=== PATIENT | male | born 1935 | race Caucasian/White ===

== ENCOUNTER 2016-09-17 09:18 | Outpatient (CLI) | payer OTHER ==
[2016-09-17 14:52] LABS: ALBUMIN/GLOBULIN RATIO 1.7 (1.0-2.2); BILIRUBIN,TOTAL 0.5 mg/dL (0.2-1.0); BUN - BLOOD UREA NITROGEN 36 mg/dL (6-20); CALCIUM 9.8 mg/dL (8.5-10.3); CARBON DIOXIDE - CO2 26 mmol/L (21-32); CHLORIDE 104 mmol/L (101-111); CHOL/HDL RATIO 3.8 (<5.0); CHOLESTEROL 152 mg/dL; CREATININE 1.7 mg/dL (0.6-1.2); GFR - MDRD 39 (>89); GLUCOSE 179 mg/dL (70-100); HDL CHOLESTEROL 40 mg/dL; LDL/HDL RATIO 2.4 (<3.6); SODIUM 140 mmol/L (135-145); TOTAL PROTEIN 6.9 g/dL (6.7-8.2); TRIGLYCERIDES 92 mg/dL; VLDL CHOLESTEROL 18 mg/dL
== END 2016-09-17 09:19 | disposition home or self-care (01) ==
LOC: LAB.WCP 09:18
PROVIDERS: ATTEND Physician Assistant Medical
DX: E11.29 Type 2 diabetes mellitus with other diabetic kidney complication (principal)
CPT/HCPCS: 36415; 80053; 80061; 83036

== ENCOUNTER 2017-01-01 11:18 | Outpatient (CLI) | payer MEDICARE, OTHER ==
[2017-01-01 19:45] LABS: CALCIUM 9.6 mg/dL (8.5-10.3); CREATININE 1.6 mg/dL (0.6-1.2); POTASSIUM 3.8 mmol/L (3.5-5.0)
[2017-01-01 20:27] LABS: HEMOGLOBIN A1C 1.03 g/dL
== END 2017-01-01 11:19 | disposition home or self-care (01) ==
LOC: LAB.WCP 11:18
PROVIDERS: ATTEND Physician Assistant Medical
DX: E11.29 Type 2 diabetes mellitus with other diabetic kidney complication (principal); Z12.5 Encounter for screening for malignant neoplasm of prostate
CPT/HCPCS: 36415; 80048; 83036; G0103; 84153

== ENCOUNTER 2017-03-11 16:49 | Emergency (ER) | payer MEDICARE, OTHER ==
--- NOTE | 2017-03-11 18:24 | ED Physician Documentation ---
History of Present Illness - Stated complaint Stated Complaint: GLF/NECK & BACK PX - Chief complaint Chief Complaint: Heent - History obtained from History obtained from: Patient, Family - History of Present Illness Timing: How many hours ago (2) Pain level max: 4 Pain level now: 3 Improved by: rest Worsened by: movement - Additonal information Additional information: Patient is an 81-year-old male who presents to the emergency department after a trip and fall down the stairs. Landed on the occiput in his neck. No complaint of neck and head pain. No focal weakness or numbness. Ambulated into the emergency department. He is not currently on blood thinners. No vomiting. No loss of consciousness. Review of Systems Ten Systems: 10 systems reviewed and negative Constitutional: denies: Fever, Chills Ears: denies: Ear pain Nose: denies: Rhinorrhea / runny nose, Congestion Throat: denies: Sore throat Cardiac: denies: Chest pain / pressure Respiratory: denies: Cough GI: denies: Nausea, Vomiting, Diarrhea Skin: denies: Rash Musculoskeletal: reports: Neck pain. denies: Back pain Neurologic: reports: Headache, Head injury. denies: Focal weakness, Numbness, Confused, Altered mental status, LOC PD PAST MEDICAL HISTORY - Past Medical History Past Medical History: Yes Cardiovascular: Hypertension Respiratory: None Neuro: Parkinson's Endocrine/Autoimmune: Type 2 diabetes Musculoskeletal: Other - Present Medications Home Medications: Ambulatory Orders Medication Instructions Recorded Confirmed Aspirin 81 mg PO DAILY 03/11/17 03/11/17 Carbidopa/Levodopa [Carbidopa-Levo 03/11/17 ER 25-100 Tab] Esomeprazole Magnesium 20 mg PO DAILY 03/11/17 03/11/17 Fenofibrate 160 mg PO DAILY 03/11/17 03/11/17 Insulin Aspart [NovoLOG] 03/11/17 Insulin Glargine [Lantus Solostar] 03/11/17 Lisinopril 20 mg PO DAILY 03/11/17 03/11/17 Metformin HCl 500 mg PO DAILY PM 03/11/17 03/11/17 Simvastatin 40 mg PO DAILY 03/11/17 03/11/17 - Allergies Allergies/Adverse Reactions: Allergies Allergy/AdvReac Type Severity Reaction Status Date / Time No Known Drug Allergies Allergy Verified 03/11/17 17:11 - Social History Does the pt smoke?: No Smoking Status: Never smoker PD ED PE NORMAL - Vitals Vital signs reviewed: Yes - General General: Alert and oriented X 3, No acute distress, Well developed/nourished - HEENT HEENT: Atraumatic, PERRL, Ears normal, Moist mucous membranes - Neck Neck: Supple, no meningeal sign, Other (TTP diffusely over the mid/upper C-spine ) - Cardiac Cardiac: RRR, Strong equal pulses - Respiratory Respiratory: No respiratory distress, Clear bilaterally - Abdomen Abdomen: Soft, Non tender, Non distended - Derm Derm: Warm and dry - Extremities Extremities: No deformity - Neuro Neuro: Alert and oriented X 3, shovel engineer 2-12 intact, No motor deficit, No sensory deficit, Normal speech Eye Opening: Spontaneous Motor: Obeys Commands Verbal: Oriented GCS Score: 15 - Psych Psych: Normal mood, Normal affect Results - Vitals Vitals: Vital Signs - 24 hr 03/11/17 03/11/17 03/11/17 17:08 19:36 19:38 Temperature 36.6 C 36.9 C Heart Rate 65 62 Respiratory 17 18 Rate Blood Pressure 144/65 H 141/65 H O2 Saturation 99 97 Oxygen O2 Source Room air - Rads (name of study) head CT Radiology: Prelim report reviewed, EMP read contemporaneously, See rad report ( No acute intracranial CT abnormality. ) cervical spine CT Radiology: Prelim report reviewed, EMP read contemporaneously, See rad report ( No evidence of cervical spine fracture or dislocation) PD MEDICAL DECISION MAKING - ED course Complexity details: reviewed results, re-evaluated patient, considered differential, d/w patient, d/w family ED course: Patient is an 81-year-old gentleman with a history of Parkinson's disease who tripped and fell today landing on his neck and occiput. Has pain to both sites. Head CT and C-spine CT neg. Patient and family counseled regarding signs and symptoms for which I believe and urgent re-evaluation would be necessary. Patient with good understanding of and agreement to plan and is comfortable going home at this time This document was made in part using voice recognition software. While efforts are made to proofread this document, sound alike and grammatical errors may occur. Departure - Departure Disposition: 01 Home, Self Care Clinical Impression: Neck pain Fall Qualifiers: Encounter type: initial encounter Qualified Code(s): W19.XXXA - Unspecified fall, initial encounter Head injury Qualifiers: Encounter type: initial encounter Qualified Code(s): S09.90XA - Unspecified injury of head, initial encounter Condition: Good Instructions: ED Head Injury Closed, ED Neck Back Pain General Follow-Up: Jennifer Bernal PA-C [Primary Care Provider] - Within 1 week Comments: Your CT scans are normal today. Return if you worsen. You can use Motrin or Tylenol as needed for pain at home. Discharge Date/Time: 03/11/17 19:39
--- NOTE | 2017-03-11 18:58 | CT Preliminary Report ---
Exam: CT HEAD W/O IMPRESSION: No acute intracranial CT abnormality. [facility] SITE ID: [id number]
--- NOTE | 2017-03-11 19:00 | CT Preliminary Report ---
Exam: CT CERVICAL SPINE W/O IMPRESSION: No evidence of cervical spine fracture or dislocation. [facility] SITE ID: [id number]
--- NOTE | 2017-03-11 19:01 | CT Report ---
EXAM: CT HEAD EXAM DATE: 03/11/2017 06:43 PM. CLINICAL HISTORY: Fall. COMPARISON: None. TECHNIQUE: Multiaxial CT images were obtained from the foramen magnum to the vertex. Reformats: Coron al. IV contrast: None. In accordance with CT protocol optimization, one or more of the following dose reduction techniques w ere utilized for this exam: automated exposure control, adjustment of mA and/or KV based on patient s ize, or use of iterative reconstructive technique. FINDINGS: Parenchyma: No intraparenchymal hemorrhage. No evidence of mass, midline shift, or CT findings of inf arction. Sandhu-white differentiation is distinct. Extraaxial Spaces: Normal for age. No subdural or epidural collections identified. Ventricles: Normal in size and position. Sinuses and Orbits: Imaged paranasal sinuses, orbits, and mastoids show no significant abnormality. Bones: No evidence of fracture or calvarial defect. Other: None. IMPRESSION: No acute intracranial CT abnormality. [facility] Referring Provider Line: [phone] SITE ID: [id number]
--- NOTE | 2017-03-11 19:03 | CT Report ---
EXAM: CT CERVICAL SPINE WITHOUT CONTRAST DATE: 03/11/2017 06:43 PM. HISTORY: Fall, head injury, neck pain. COMPARISONS: None. TECHNIQUE: Thin-section axial images were acquired of the cervical spine without contrast. Post-proce ssing: Coronal and sagittal reformats. Other: None. In accordance with CT protocol optimization, one or more of the following dose reduction techniques w ere utilized for this exam: automated exposure control, adjustment of mA and/or KV based on patient s ize, or use of iterative reconstructive technique. FINDINGS: Alignment: No scoliosis or spondylolisthesis. Bones: No fracture or bone lesion. Interspace Levels/Facets: There is mild to moderate mid and lower cervical spine degenerative disease . Musculature: No significant abnormalities. Other: The paravertebral and prevertebral soft tissues are unremarkable. The lung apices are clear. IMPRESSION: No evidence of cervical spine fracture or dislocation. [facility] Referring Provider Line: [phone] SITE ID: [id number]
[2017-03-11 19:37] VITALS: BP 141/65
== END 2017-03-11 19:39 | disposition home or self-care (01) ==
LOC: ED 16:49
DX: S09.90XA Unspecified injury of head, initial encounter (principal); M54.2 Cervicalgia; W10.9XXA Fall (on) (from) unspecified stairs and steps, initial encounter; I10 Essential (primary) hypertension; E11.9 Type 2 diabetes mellitus without complications; Z79.4 Long term (current) use of insulin; G20 Parkinson's disease; Z79.82 Long term (current) use of aspirin
CPT/HCPCS: 70450; 72125; 99283; 99284

== ENCOUNTER 2017-04-11 15:05 | Outpatient (CLI) | payer MEDICARE, OTHER | END 2017-04-11 15:06 | disposition home or self-care (01) | LOC: LAB.R 15:05 | PROVIDERS: ATTEND Physician Assistant Medical | DX: N39.0 Urinary tract infection, site not specified (principal) | CPT/HCPCS: 87077; 87086 ==

== ENCOUNTER 2017-07-12 08:00 | Outpatient (CLI) | payer MEDICARE, OTHER ==
[2017-07-12 19:08] LABS: CALCIUM 9.7 mg/dL (8.5-10.3); CREATININE 1.4 mg/dL (0.6-1.2)
[2017-07-12 19:55] LABS: HB2 TOTAL 13.9 g/dL; HEMOGLOBIN A1C 0.98 g/dL; HEMOGLOBIN A1C % 8.6 % (4.6-6.2)
== END 2017-07-12 08:01 | disposition home or self-care (01) ==
LOC: LAB.WCP 08:00
PROVIDERS: ATTEND Physician Assistant Medical
DX: E11.29 Type 2 diabetes mellitus with other diabetic kidney complication (principal)
CPT/HCPCS: 36415; 80048; 83036

== ENCOUNTER 2017-10-21 11:36 | Outpatient (CLI) | payer MEDICARE, OTHER ==
[2017-10-21 19:03] LABS: HB2 TOTAL 13.5 g/dL; HEMOGLOBIN A1C 0.97 g/dL; HEMOGLOBIN A1C % 8.7 % (4.6-6.2)
[2017-10-21 19:07] LABS: ALBUMIN 4.1 g/dL (3.2-5.5); ALBUMIN/GLOBULIN RATIO 1.4 (1.0-2.2); ALKALINE PHOSPHATASE 28 IU/L (42-121); ALT ALANINE AMINOTRANSFERASE < 10 IU/L (10-60); AST ASPARTATE AMINOTRANSFERASE 14 IU/L (10-42); BUN - BLOOD UREA NITROGEN 32 mg/dL (6-20); CALCIUM 9.6 mg/dL (8.5-10.3); CARBON DIOXIDE - CO2 26 mmol/L (21-32); CHLORIDE 103 mmol/L (101-111); CHOL/HDL RATIO 3.3 (<5.0); CHOLESTEROL 136 mg/dL; CREATININE 1.7 mg/dL (0.6-1.2); GFR - MDRD 39 (>89); GLUCOSE 138 mg/dL (70-100); HDL CHOLESTEROL 41 mg/dL; SODIUM 139 mmol/L (135-145); TOTAL PROTEIN 7.1 g/dL (6.7-8.2)
[2017-10-21 19:19] LABS: LDL CHOLESTEROL,CALCULATED 78 mg/dL; LDL/HDL RATIO 1.9 (<3.6); VLDL CHOLESTEROL 17 mg/dL
== END 2017-10-21 11:37 | disposition home or self-care (01) ==
LOC: LAB.WCP 11:36
PROVIDERS: ATTEND Physician Assistant Medical
DX: E11.29 Type 2 diabetes mellitus with other diabetic kidney complication (principal)
CPT/HCPCS: 36415; 80053; 80061; 83036; 83721

== ENCOUNTER 2018-01-23 13:56 | Outpatient (CLI) | payer MEDICARE, OTHER ==
[2018-01-23 20:05] LABS: HB2 TOTAL 11.8 g/dL; HEMOGLOBIN A1C 0.98 g/dL; HEMOGLOBIN A1C % 9.7 % (4.6-6.2)
[2018-01-23 20:16] LABS: CALCIUM 9.9 mg/dL (8.5-10.3); CREATININE 1.6 mg/dL (0.6-1.2)
== END 2018-01-23 13:57 ==
LOC: LAB.WCP 13:56
PROVIDERS: ATTEND Physician Assistant Medical
DX: E11.29 Type 2 diabetes mellitus with other diabetic kidney complication (principal)
CPT/HCPCS: 36415; 80048; 83036

== ENCOUNTER 2018-04-21 13:10 | Outpatient (CLI) | payer MEDICARE, OTHER ==
[2018-04-21 19:35] LABS: ALBUMIN 3.9 g/dL (3.2-5.5); ALBUMIN/GLOBULIN RATIO 1.4 (1.0-2.2); ALKALINE PHOSPHATASE 33 IU/L (42-121); ALT ALANINE AMINOTRANSFERASE < 10 IU/L (10-60); AST ASPARTATE AMINOTRANSFERASE < 10 IU/L (10-42); BILIRUBIN,TOTAL 0.7 mg/dL (0.2-1.0); BUN - BLOOD UREA NITROGEN 26 mg/dL (6-20); CALCIUM 9.6 mg/dL (8.5-10.3); CARBON DIOXIDE - CO2 26 mmol/L (21-32); CHLORIDE 105 mmol/L (101-111); CHOL/HDL RATIO 3.1 (<5.0); CHOLESTEROL 125 mg/dL; CREATININE 1.4 mg/dL (0.6-1.2); GFR - MDRD 48 (>89); GLUCOSE 124 mg/dL (70-100); HDL CHOLESTEROL 40 mg/dL; LDL CHOLESTEROL,CALCULATED 71 mg/dL; LDL/HDL RATIO 1.8 (<3.6); SODIUM 141 mmol/L (135-145); TOTAL PROTEIN 6.6 g/dL (6.7-8.2); VLDL CHOLESTEROL 14 mg/dL
[2018-04-21 20:05] LABS: HB2 TOTAL 12.6 g/dL; HEMOGLOBIN A1C 0.96 g/dL; HEMOGLOBIN A1C % 9.1 % (4.6-6.2)
== END 2018-04-21 23:59 | disposition home or self-care (01) ==
LOC: LAB.WCP 13:10
PROVIDERS: ATTEND Physician Assistant Medical
DX: E11.29 Type 2 diabetes mellitus with other diabetic kidney complication (principal)
CPT/HCPCS: 36415; 80053; 80061; 83036; 83721

== ENCOUNTER 2018-07-16 08:00 | Outpatient (CLI) | payer MEDICARE, OTHER ==
[2018-07-16 12:49] LABS: CALCIUM 9.9 mg/dL (8.5-10.3); CREATININE 1.5 mg/dL (0.6-1.2)
[2018-07-16 12:51] LABS: HB2 TOTAL 12.4 g/dL; HEMOGLOBIN A1C 0.85 g/dL; HEMOGLOBIN A1C % 8.4 % (4.6-6.2)
== END 2018-07-16 23:59 | disposition home or self-care (01) ==
LOC: LAB.WCP 08:00
PROVIDERS: ATTEND Physician Assistant Medical
DX: E11.29 Type 2 diabetes mellitus with other diabetic kidney complication (principal)
CPT/HCPCS: 36415; 80048; 83036

== ENCOUNTER 2018-10-24 11:52 | Outpatient (CLI) | payer MEDICARE, OTHER ==
[2018-10-24 19:36] LABS: HB2 TOTAL 12.3 g/dL; HEMOGLOBIN A1C 0.88 g/dL; HEMOGLOBIN A1C % 8.7 % (4.6-6.2)
[2018-10-24 19:50] LABS: ALBUMIN/GLOBULIN RATIO 1.4 (1.0-2.2); ALKALINE PHOSPHATASE 23 IU/L (42-121); ALT ALANINE AMINOTRANSFERASE < 10 IU/L (10-60); AST ASPARTATE AMINOTRANSFERASE < 10 IU/L (10-42); BILIRUBIN,TOTAL 0.7 mg/dL (0.2-1.0); BUN - BLOOD UREA NITROGEN 27 mg/dL (6-20); CALCIUM 9.5 mg/dL (8.5-10.3); CARBON DIOXIDE - CO2 25 mmol/L (21-32); CHLORIDE 106 mmol/L (101-111); CHOL/HDL RATIO 3.6 (<5.0); CHOLESTEROL 144 mg/dL; CREATININE 1.4 mg/dL (0.6-1.2); GFR - MDRD 48 (>89); GLUCOSE 171 mg/dL (70-100); HDL CHOLESTEROL 40 mg/dL; LDL CHOLESTEROL,CALCULATED 86 mg/dL; LDL/HDL RATIO 2.2 (<3.6); SODIUM 141 mmol/L (135-145); TOTAL PROTEIN 6.8 g/dL (6.7-8.2); VLDL CHOLESTEROL 18 mg/dL
== END 2018-10-24 23:59 | disposition home or self-care (01) ==
LOC: LAB.WCP 11:52
PROVIDERS: ATTEND Physician Assistant Medical
DX: E11.29 Type 2 diabetes mellitus with other diabetic kidney complication (principal)
CPT/HCPCS: 36415; 80053; 80061; 83036; 83721

== ENCOUNTER 2018-12-25 08:00 | Outpatient (CLI) | payer MEDICARE, OTHER ==
[2018-12-25 18:45] LABS: HGB - HEMOGLOBIN 11.1 g/dL (14.0-18.0); MEAN CORPUSCULAR HEMOGLOBIN 29.1 pg (27.0-31.0); MEAN CORPUSCULAR HGB CONC 31.5 g/dL (32.0-36.0); MEAN CORPUSCULAR VOLUME 92.4 fL (80.0-94.0); RED BLOOD COUNT 3.81 10^6/uL (4.70-6.10); RED CELL DISTRIBUTION WIDTH 13.1 % (12.0-15.0); WHITE BLOOD COUNT 8.9 x10^3/uL (4.8-10.8)
[2018-12-25 19:08] LABS: CALCIUM 9.3 mg/dL (8.5-10.3); CREATININE 1.4 mg/dL (0.6-1.2)
[2018-12-25 19:12] LABS: CREATININE,URINE 54.4 mg/dL; PROTEIN/CREATININE RATIO,URINE 0.3 (<=0.2)
== END 2018-12-25 23:59 | disposition home or self-care (01) ==
LOC: LAB.WCP 08:00
PROVIDERS: ATTEND Internal Medicine Nephrology
DX: N05.9 Unspecified nephritic syndrome with unspecified morphologic changes (principal); D70.9 Neutropenia, unspecified; R80.9 Proteinuria, unspecified
CPT/HCPCS: 36415; 80048; 82570; 84156; 85027

== ENCOUNTER 2019-02-04 13:48 | Outpatient (CLI) | payer MEDICARE, OTHER ==
--- NOTE | 2019-02-05 11:58 | XRAY Report ---
Reason: THORACIC BACK PAIN Procedure Date: 02/04/2019 Accession Number: [id number] / [id number] Procedure: WCP - Thoracic Spine 2 View CPT Code: Final Report FULL RESULT: EXAM: THORACIC SPINE RADIOGRAPHY EXAM DATE: 02/04/2019 02:20 PM. CLINICAL HISTORY: THORACIC BACK PAIN. COMPARISON: CHEST 2 VIEW PA/LAT 03/18/2018 3:41 PM. TECHNIQUE: 2 views. FINDINGS: Alignment: 9 degrees of left convex thoracic scoliosis. No spondylolisthesis. Bones: No fracture lines. Mild anterior wedging of T7 is largely unchanged compared to prior without evident fracture line. Disks: Multilevel moderate disk height loss or disk osteophyte complexes in the mid thoracic spine. Soft Tissues: Normal. The visualized lungs and cardiomediastinal silhouette are normal. IMPRESSION: 1. Mild left convex thoracic scoliosis. 2. No acute fracture line seen in the thoracic spine. Persistent anterior wedging of T7 may reflect sequelae of remote superior endplate wedge compression fracture versus sequelae of chronic degenerative change. 3. Multilevel degenerative disk disease seen throughout the thoracic spine. [facility]
--- NOTE | 2019-02-05 12:17 | XRAY Report ---
Reason: LOW BACK PAIN Procedure Date: 02/04/2019 Accession Number: [id number] / [id number] Procedure: WCP - Lumbar Spine 2 View CPT Code: Final Report FULL RESULT: EXAM: LUMBOSACRAL SPINE RADIOGRAPHY EXAM DATE: 02/04/2019 02:20 PM. CLINICAL HISTORY: LOW BACK PAIN. COMPARISONS: None. TECHNIQUE: 3 views. FINDINGS: Alignment: 5 mm grade 1 anterolisthesis of L4 on L5. Bones: Five aew-xer-lpggfqi lumbar vertebral bodies are present. No fractures or bone lesions. Disks: Multilevel mild to moderate disk height loss with endplate sclerosis and disk osteophyte, most notable at L4-L5. Facets: Moderate degenerative facet hypertrophy at L4-L5 and L5-S1. Mild facet hypertrophy at the upper lumbar levels. Sacroiliac Joints: Unremarkable. Soft Tissues: Normal. The visualized bowel gas pattern is normal. IMPRESSION: 1. Grade 1 anterolisthesis of L4 on L5. 2. No fractures of the lumbar spine. 3. Degenerative changes of the lumbar spine as described above. [facility]
== END 2019-02-04 23:59 | disposition home or self-care (01) ==
LOC: DI.WCP 13:48
PROVIDERS: ATTEND Physician Assistant Medical
DX: M43.16 Spondylolisthesis, lumbar region (principal); M51.34 Other intervertebral disc degeneration, thoracic region; M41.84 Other forms of scoliosis, thoracic region
CPT/HCPCS: 72070; 72100

== ENCOUNTER 2019-04-10 14:28 | Outpatient (CLI) | payer MEDICARE, OTHER ==
--- NOTE | 2019-04-10 15:53 | XRAY Report ---
Reason: NECK PAIN, ACUTE, SHOULDER IMPINGEMENT RT, ROTATOR Procedure Date: 04/10/2019 Accession Number: [id number] / [id number] Procedure: XR - Shoulder 2 View BILAT CPT Code: Final Report FULL RESULT: Bilateral Shoulder Radiography EXAM DATE: 04/10/2019 03:10 PM. CLINICAL HISTORY: NECK PAIN, ACUTE, SHOULDER IMPINGEMENT RT, ROTATOR. COMPARISON: None. TECHNIQUE: 2 views each. FINDINGS: Right: Bones: Degenerative changes superolateral humeral head.. No fracture or bone lesion. Joints: AC joint hypertrophy. Glenohumeral osteophyte. Soft tissues: The visualized hemithorax is unremarkable. No soft tissue swelling. Left: Bones: Degenerative changes superolateral humeral head. No fracture or bone lesion. Joints: AC joint hypertrophy, loose body or soft tissue calcification adjacent AC joint. Glenohumeral osteophyte. Soft tissues: The visualized hemithorax is unremarkable. No soft tissue swelling. IMPRESSION: Bilateral DJD. [facility]
--- NOTE | 2019-04-10 15:55 | XRAY Report ---
Reason: NECK PAIN, ACUTE, SHOULDER IMPINGEMENT RT, ROTATOR Procedure Date: 04/10/2019 Accession Number: [id number] / [id number] Procedure: XR - Cervical Spine 2 View CPT Code: Final Report FULL RESULT: EXAM: CERVICAL SPINE RADIOGRAPHY EXAM DATE: 04/10/2019 03:09 PM. CLINICAL HISTORY: NECK PAIN, ACUTE, SHOULDER IMPINGEMENT RT, ROTATOR. COMPARISONS: None. TECHNIQUE: 3 views. FINDINGS: Alignment: Patient is in mild flexion. No spondylolisthesis or scoliosis. Bones: The cervical vertebral bodies and posterior elements are well visualized from the skull base through C7-T1. No fractures or bone lesions. Disks: C3-C4 osteophyte, disk space narrowing, subchondral sclerosis. C5-C6, C6-C7 osteophyte, disk space narrowing, subchondral sclerosis. Most prominent at C6-C7 Facets: Facet arthropathy mid to lower cervical spine Soft Tissues: Normal. No prevertebral soft tissue swelling. The visualized lung apices are clear. IMPRESSION: Moderate degenerative changes [facility]
== END 2019-04-10 14:29 | disposition home or self-care (01) ==
LOC: DI 14:28
PROVIDERS: ATTEND Physician Assistant Medical
DX: M50.31 Other cervical disc degeneration, high cervical region (principal); M47.812 Spondylosis without myelopathy or radiculopathy, cervical region; M19.011 Primary osteoarthritis, right shoulder; M19.012 Primary osteoarthritis, left shoulder
CPT/HCPCS: 72040

== ENCOUNTER 2019-05-06 08:00 | Outpatient (CLI) | payer MEDICARE, OTHER ==
[2019-05-06 19:40] LABS: HB2 TOTAL 11.1 g/dL; HEMOGLOBIN A1C 0.71 g/dL
[2019-05-06 19:47] LABS: CREATININE,URINE 73.3 mg/dL; MICROALBUM/CREATININE RATIO,UR 55.9 ug/mg (<30.0); MICROALBUMIN,URINE 4.1 mg/dL (0-300.0)
[2019-05-06 19:49] LABS: CALCIUM 9.5 mg/dL (8.5-10.3); CREATININE 1.9 mg/dL (0.6-1.2)
== END 2019-05-06 23:59 | disposition home or self-care (01) ==
LOC: LAB.WCP 08:00
PROVIDERS: ATTEND Physician Assistant Medical
DX: E11.29 Type 2 diabetes mellitus with other diabetic kidney complication (principal)
CPT/HCPCS: 36415; 80048; 82043; 82570; 83036

== ENCOUNTER 2019-05-28 15:07 | Outpatient (CLI) | payer MEDICARE, OTHER ==
--- NOTE | 2019-05-29 13:21 | XRAY Report ---
Reason: LEFT HIP PAIN Procedure Date: 05/28/2019 Accession Number: [id number] / [id number] Procedure: WCP - Hip 1 View LT CPT Code: Final Report FULL RESULT: EXAM: LEFT HIP RADIOGRAPHY EXAM DATE: 05/28/2019 03:07 PM. CLINICAL HISTORY: LEFT HIP PAIN. Ground-level fall onto the left side one day ago. COMPARISON: None. TECHNIQUE: 2 views. FINDINGS: Bones: Normal. No fractures or bone lesion. Joints: Normal. No dislocation. The hip joint space is preserved. Soft Tissues: Normal. No soft tissue swelling. IMPRESSION: Normal left hip radiography. [facility]
--- NOTE | 2019-05-29 13:23 | XRAY Report ---
Reason: LEFT HAND PAIN Procedure Date: 05/28/2019 Accession Number: [id number] / [id number] Procedure: WCP - Hand 3 View LT CPT Code: Final Report FULL RESULT: EXAM: LEFT HAND RADIOGRAPHY EXAM DATE: 05/28/2019 03:07 PM. CLINICAL HISTORY: LEFT HAND PAIN. Ground level fall yesterday. Left thumb pain, swelling, and bruising. COMPARISON: ELBOW 2 VIEW LT 05/28/2019 2:41 PM. TECHNIQUE: 3 views. FINDINGS: Bones: Normal. No fractures or bone lesions. Joints: No subluxation. Joint space narrowing which is moderate at the first interphalangeal joint, severe at the second and moderate at the third metacarpal phalangeal joints. Moderate second and fifth DIP and fifth PIP joint space narrowing without significant osteophyte formation. No bony hypertrophy or osteophyte formation. No erosion. Soft Tissues: No significant soft tissue swelling. IMPRESSION: 1. No fracture or malalignment. 2. 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 [facility]
--- NOTE | 2019-05-29 13:24 | XRAY Report ---
Reason: LEFT ELBOW PAIN Procedure Date: 05/28/2019 Accession Number: [id number] / [id number] Procedure: WCP - Elbow 2 View LT CPT Code: Final Report FULL RESULT: EXAM: LEFT ELBOW RADIOGRAPHY EXAM DATE: 05/28/2019 02:41 PM. CLINICAL HISTORY: LEFT ELBOW PAIN. Ground-level fall yesterday. Pain, swelling, and bruising. COMPARISON: HAND 3 VIEW LT 05/28/2019 2:44 PM. TECHNIQUE: 2 views. FINDINGS: Bones: Small well-corticated olecranon enthesophyte. No fractures or bone lesions. Joints: Normal. No effusion. No subluxation. Soft Tissues: Normal. No soft tissue swelling. IMPRESSION: No fracture or malalignment of the left elbow. [facility]
== END 2019-05-28 23:59 | disposition home or self-care (01) ==
LOC: DI.WCP 15:07
PROVIDERS: ATTEND Family Medicine
DX: M25.522 Pain in left elbow (principal); M94.242 Chondromalacia, joints of left hand; M19.042 Primary osteoarthritis, left hand; M25.552 Pain in left hip

== ENCOUNTER 2019-07-09 08:00 | Outpatient (CLI) | payer MEDICARE, OTHER ==
[2019-07-09 16:43] LABS: CALCIUM 9.4 mg/dL (8.5-10.3); CREATININE 1.3 mg/dL (0.6-1.2)
== END 2019-07-09 23:59 | disposition home or self-care (01) ==
LOC: LAB.WCP 08:00
PROVIDERS: ATTEND Physician Assistant Medical
DX: N19 Unspecified kidney failure (principal)
CPT/HCPCS: 36415; 80048

== ENCOUNTER 2019-08-12 11:49 | Outpatient (CLI) | payer MEDICARE, OTHER ==
[2019-08-12 13:24] LABS: ALBUMIN/GLOBULIN RATIO 1.4 (1.0-2.2); ALKALINE PHOSPHATASE 49 IU/L (42-121); ALT ALANINE AMINOTRANSFERASE < 10 IU/L (10-60); AST ASPARTATE AMINOTRANSFERASE < 10 IU/L (10-42); BILIRUBIN,TOTAL 0.9 mg/dL (0.2-1.0); BUN - BLOOD UREA NITROGEN 33 mg/dL (6-20); CALCIUM 9.2 mg/dL (8.5-10.3); CARBON DIOXIDE - CO2 25 mmol/L (21-32); CHLORIDE 104 mmol/L (101-111); CHOL/HDL RATIO 3.9 (<5.0); CHOLESTEROL 144 mg/dL; CREATININE 1.3 mg/dL (0.6-1.2); GLUCOSE 160 mg/dL (70-100); HDL CHOLESTEROL 37 mg/dL; LDL CHOLESTEROL,CALCULATED 91 mg/dL; LDL/HDL RATIO 2.5 (<3.6); SODIUM 138 mmol/L (135-145); TOTAL PROTEIN 6.9 g/dL (6.7-8.2); VLDL CHOLESTEROL 16 mg/dL
[2019-08-12 13:26] LABS: HB2 TOTAL 11.9 g/dL; HEMOGLOBIN A1C 0.7 g/dL; HEMOGLOBIN A1C % 7.5 % (4.6-6.2)
== END 2019-08-12 23:59 | disposition home or self-care (01) ==
LOC: LAB.WCP 11:49
PROVIDERS: ATTEND Physician Assistant Medical
DX: E11.29 Type 2 diabetes mellitus with other diabetic kidney complication (principal)
CPT/HCPCS: 36415; 80053; 80061; 83036; 83721

== ENCOUNTER 2019-08-18 14:18 | Outpatient (CLI) | payer MEDICARE, OTHER ==
--- NOTE | 2019-08-19 10:32 | XRAY Report ---
Reason: LEFT SHOULDER PAIN Procedure Date: 08/18/2019 Accession Number: [id number] / [id number] Procedure: WCP - Shoulder 2 View LT CPT Code: Final Report FULL RESULT: EXAM: LEFT SHOULDER RADIOGRAPHY 2 VIEWS EXAM DATE: 08/18/2019. CLINICAL HISTORY: Left shoulder pain. COMPARISON: None. TECHNIQUE: AP and scapular Y views. FINDINGS: Bones: No fracture or other acute abnormality. Small osteophytes At the margins of the acromioclavicular joint. Joints: No subluxation. Mild narrowing of the acromioclavicular joint. Soft Tissues: Small calcifications adjacent to the greater tuberosity. Visualized left lung is clear. Disk narrowing and osteophytes at multiple levels of the thoracic spine. IMPRESSION: Mild degenerative changes of the acromioclavicular joint. Small calcifications adjacent to the greater tuberosity consistent with calcific tendinosis. Otherwise normal examination of the left shoulder. Multilevel degenerative disk disease and spondylosis of the thoracic spine. [facility]
== END 2019-08-18 14:19 | disposition home or self-care (01) ==
LOC: DI.WCP 14:18
PROVIDERS: ATTEND Family Medicine
DX: M19.012 Primary osteoarthritis, left shoulder (principal); M47.814 Spondylosis without myelopathy or radiculopathy, thoracic region; M51.34 Other intervertebral disc degeneration, thoracic region

== ENCOUNTER 2019-11-18 08:00 | Outpatient (CLI) | payer MEDICARE, OTHER ==
[2019-11-18 19:02] LABS: CALCIUM 9.9 mg/dL (8.5-10.3); CREATININE 1.2 mg/dL (0.6-1.2)
[2019-11-18 19:28] LABS: HB2 TOTAL 11.9 g/dL; HEMOGLOBIN A1C 0.76 g/dL
== END 2019-11-18 23:59 | disposition home or self-care (01) ==
LOC: LAB.WCP 08:00
PROVIDERS: ATTEND Physician Assistant Medical
DX: E11.29 Type 2 diabetes mellitus with other diabetic kidney complication (principal)
CPT/HCPCS: 36415; 80048; 83036

== ENCOUNTER 2020-02-06 21:12 | Emergency (ER) | payer MEDICARE, OTHER ==
[2020-02-06] MEDS ORDERED: SODIUM CHLORIDE 0.9% 1,000 ML IV STA (21:42)
--- NOTE | 2020-02-06 21:52 | ED Physician Documentation ---
History of Present Illness - Stated complaint Stated Complaint: GLF - Chief complaint Chief Complaint: Back Pain - History obtained from History obtained from: Patient - History of Present Illness Timing: Prior to arrival Pain level max: 5 Pain level now: 5 - Additonal information Additional information: 84-year-old man with pmh parkinsons, on baby aspirin, not on anticoagulation presents with mechanical fall from standing. Patient lost his balance while reaching over a counter, filled and twisted, hitting his head on the way down as well as right rib cage. Patient now complains of right rib pain and lumbar back pain. Pain is nonradiating, aching, moderate severity, worse with movement, associated with the fall. Sudden onset and constant. Denies LOC. Denies extremity pain except where he has a mild avulsion to left elbow. Does endorse frequent falls recently for which he is getting physical therapy. Review of Systems Ten Systems: 10 systems reviewed and negative Cardiac: denies: Chest pain / pressure, Palpitations Skin: reports: Other (avulsed skin) Musculoskeletal: reports: Back pain Neurologic: denies: Syncope PD PAST MEDICAL HISTORY - Past Medical History Cardiovascular: Hypertension Respiratory: None Endocrine/Autoimmune: Type 2 diabetes Musculoskeletal: Other - Present Medications Home Medications: Ambulatory Orders Medication Instructions Recorded Confirmed Aspirin 81 mg PO DAILY 03/11/17 03/11/17 Carbidopa/Levodopa [Carbidopa-Levo 03/11/17 ER 25-100 Tab] Esomeprazole Magnesium 20 mg PO DAILY 03/11/17 03/11/17 Fenofibrate 160 mg PO DAILY 03/11/17 03/11/17 Insulin Aspart [NovoLOG] 03/11/17 Insulin Glargine [Lantus Solostar] 03/11/17 Metformin HCl 500 mg PO DAILY PM 03/11/17 03/11/17 Simvastatin 40 mg PO DAILY 03/11/17 03/11/17 lisinopriL [Lisinopril] 20 mg PO DAILY 03/11/17 03/11/17 - Allergies Allergies/Adverse Reactions: Allergies Allergy/AdvReac Type Severity Reaction Status Date / Time No Known Drug Allergies Allergy Verified 03/11/17 17:11 - Social History Does the pt smoke?: No Smoking Status: Never smoker PD ED PE NORMAL - Vitals Vital signs reviewed: Yes - General General: Alert and oriented X 3 - HEENT HEENT: Atraumatic, PERRL, EOMI, Dentition benign - Neck Neck: No bony TTP - Cardiac Cardiac: RRR, Other (Right anterolateral chest wall tender to palpation) - Respiratory Respiratory: No respiratory distress - Abdomen Abdomen: Non tender, Non distended - Back Back: Other (Tender to palpation in Mid lumbar spine) - Derm Derm: Other (Avulsed skin to left elbow) - Extremities Extremities: No deformity, No tenderness to palpate, Normal ROM s pain - Neuro Neuro: Alert and oriented X 3 - Psych Psych: Normal mood, Normal affect Results - Vitals Vitals: Oxygen O2 Source Room air - Labs Labs: Laboratory Tests 02/06/20 02/06/20 02/07/20 21:55 21:55 00:00 WBC 8.3 RBC 3.33 L Hgb 10.1 L Hct 30.7 L MCV 92.2 MCH 30.3 MCHC 32.9 RDW 12.7 Plt Count 176 MPV 10.9 Neut # (Auto) 5.1 Lymph # (Auto) 2.1 [place] # (Auto) 0.7 Eos # (Auto) 0.1 Baso # (Auto) 0.0 Absolute Nucleated RBC 0.00 Nucleated RBC % 0.0 Sodium 132 L Potassium 4.4 Chloride 97 L Carbon Dioxide 24 Anion Gap 11.0 BUN 31 H Creatinine 1.2 Estimated GFR (MDRD) 58 L Glucose 251 H Calcium 9.1 Total Bilirubin 0.8 AST < 10 L ALT < 10 L Alkaline Phosphatase 56 Total Protein 6.4 L Albumin 3.8 Globulin 2.6 Albumin/Globulin Ratio 1.5 Lipase 44 Urine Color YELLOW Urine Clarity CLEAR Urine pH 7.0 Ur Specific [place] <=1.005 Urine Protein NEGATIVE Urine Glucose (UA) 250 H Urine Ketones NEGATIVE Urine Occult Blood NEGATIVE Urine Nitrite NEGATIVE Urine Bilirubin NEGATIVE Urine Urobilinogen 0.2 (NORMAL) Ur Leukocyte Esterase NEGATIVE Urine RBC None Seen Urine WBC 0-3 Ur Squamous Epith Cells NONE SEEN Urine Bacteria None Seen PD MEDICAL DECISION MAKING - ED course Complexity details: reviewed results, re-evaluated patient, d/w patient ED course: 84yM presents s/p mechanical slip and fall, found to have no traumatic injuries on extensive workup. Patient with pain well controlled. agreeable to go home and follow up as an outpatient. strict return precautions given. Departure - Departure Disposition: 01 Home, Self Care Clinical Impression: Fall, Back pain Condition: Good Instructions: Falls Risks Prevent Comments: You have been seen in the emergency department for a slip and fall. It is important that you follow-up with your primary doctor for referral for physical therapy. Everything on your work-up showed no evidence of injury. Keep the scrape on your left elbow clean and wash regularly with gentle hypoallergenic soap and water. Return to the ED for any new or worsening symptoms. Discharge Date/Time: 02/07/20 01:46
[2020-02-06] MEDS ORDERED: IOVERSOL 320 100 ML VIAL IVP ONE ×2 (21:57→23:17)
[2020-02-06 22:01] LABS: BASOPHILS % (AUTO) 0.2 %; EOSINOPHILS # (AUTO) 0.1 10^3/uL (0.0-0.7); EOSINOPHILS % (AUTO) 1.4 %; HGB - HEMOGLOBIN 10.1 g/dL (14.0-18.0); LYMPHOCYTES # (AUTO) 2.1 10^3/uL (1.5-3.5); LYMPHOCYTES % (AUTO) 25.7 %; MEAN CORPUSCULAR HEMOGLOBIN 30.3 pg (27.0-31.0); MEAN CORPUSCULAR HGB CONC 32.9 g/dL (32.0-36.0); MEAN CORPUSCULAR VOLUME 92.2 fL (80.0-94.0); MEAN PLATELET VOLUME 10.9 fL (7.4-11.4); MONOCYTES # (AUTO) 0.7 10^3/uL (0.0-1.0); MONOCYTES % (AUTO) 8.8 %; NEUTROPHILS # (AUTO) 5.1 10^3/uL (1.5-6.6); NEUTROPHILS % (AUTO) 61.6 %; PLT - PLATELET COUNT 176 10^3/uL (130-450); RED BLOOD COUNT 3.33 10^6/uL (4.70-6.10); RED CELL DISTRIBUTION WIDTH 12.7 % (12.0-15.0); WHITE BLOOD COUNT 8.3 x10^3/uL (4.8-10.8)
[2020-02-06 22:18] LABS: ALBUMIN 3.8 g/dL (3.2-5.5); ALBUMIN/GLOBULIN RATIO 1.5 (1.0-2.2); ALKALINE PHOSPHATASE 56 IU/L (42-121); ALT ALANINE AMINOTRANSFERASE < 10 IU/L (10-60); AST ASPARTATE AMINOTRANSFERASE < 10 IU/L (10-42); BILIRUBIN,TOTAL 0.8 mg/dL (0.2-1.0); BUN - BLOOD UREA NITROGEN 31 mg/dL (6-20); CALCIUM 9.1 mg/dL (8.5-10.3); CARBON DIOXIDE - CO2 24 mmol/L (21-32); CHLORIDE 97 mmol/L (101-111); CREATININE 1.2 mg/dL (0.6-1.2); GLUCOSE 251 mg/dL (70-100); LIPASE 44 U/L (22-51); SODIUM 132 mmol/L (135-145); TOTAL PROTEIN 6.4 g/dL (6.7-8.2)
[2020-02-06] MEDS ORDERED: MORPHINE 2 MG/ML CARPUJECT IVP STA (23:06)
[2020-02-07 00:31] LABS: BILIRUBIN,URINE NEGATIVE (NEGATIVE); GLUCOSE, URINE (UA) 250 mg/dL (NEGATIVE); KETONES,URINE (UA) NEGATIVE (NEGATIVE); LEUKOCYTE ESTERASE, URINE NEGATIVE (NEGATIVE); NITRITE,URINE NEGATIVE (NEGATIVE); OCCULT BLOOD,URINE NEGATIVE (NEGATIVE); PROTEIN,URINE NEGATIVE (NEGATIVE); UROBILINOGEN,URINE 0.2 (NORMAL) E.U./dL (NORMAL)
[2020-02-07 00:41] LABS: BACTERIA,URINE None Seen /HPF (None Seen); CLARITY,URINE CLEAR (CLEAR); RBC,URINE None Seen /HPF (0-5); SQUAMOUS EPITHELIAL CELL,UR NONE SEEN (<= Few)
[2020-02-07 01:31] VITALS: BP 197/82
--- NOTE | 2020-02-07 07:17 | CT Report ---
PROCEDURE: HEAD WO INDICATIONS: Head trauma, mod-severe TECHNIQUE: Noncontrast 4.5 mm thick angled axial sections acquired from the foramen magnum to the vertex. For r adiation dose reduction, the following was used: automated exposure control, adjustment of mA and/or kV according to patient size. COMPARISON: 03/11/2017. FINDINGS: Image quality: Excellent. CSF spaces: Basal cisterns are patent. No extra-axial fluid collections. Ventricles, cerebral sulc i, and basal cisterns are symmetric in size and morphology. Brain: No midline shift. No intracranial masses or hemorrhage. Sandhu-white matter interface is norm al. There is diffuse cortical volume loss with associated ex vacuo dilatation of the bilateral ventr icles. No acute intracranial hemorrhage or evidence of transcortical infarction. Scattered bilatera l periventricular white matter hypoattenuation likely sequela from chronic small vessel ischemic dise ase. Atherosclerotic calcifications within the intracranial segments of the bilateral internal caroti d arteries are noted. Skull and face: Calvarium and visualized facial bones are intact, without suspicious lesions. Sinuses: Visualized sinuses and mastoids are clear. IMPRESSION: CT head without acute intracranial abnormalities or acute calvarial fractures. Age-related senescent changes and sequela of chronic small vessel ischemic disease. No significant discrepancy with initial interpretation by overnight radiologist. Reviewed by: Liu Aguirre MD on 02/07/2020 6:16 AM [facility] Approved by: Liu Aguirre MD on 02/07/2020 6:16 AM [facility] Station ID: [id number]
--- NOTE | 2020-02-07 07:22 | CT Report ---
PROCEDURE: CERVICAL SPINE WO INDICATIONS: Neck trauma, midline tenderness TECHNIQUE: Noncontrast 3 mm thick sections acquired from the skull base to the T4 level. Sagittal and coronal r eformats were then constructed. For radiation dose reduction, the following was used: automated exp osure control, adjustment of mA and/or kV according to patient size. COMPARISON: 03/11/2017. FINDINGS: Image quality: Excellent. Bones: No acute fractures or dislocations. Craniocervical junction is intact. Severe multilevel cerv ical spondylosis noted throughout the imaged spine most severe at C6-7. There is mild levocurvature o f the cervical spine as well as loss of normal cervical lordosis. This is likely related to positioni ng and/or concurrent muscle spasms. Visualized superior ribs are intact. No acute compression fractu res. Soft tissues: Prevertebral soft tissues are normal in thickness. No paravertebral hematomas. No ap ical pneumothoraces. IMPRESSION: Cervical spine without acute fracture or dislocation. Severe multilevel cervical spondylosis most prominent at C6-7. No significant discrepancy with initial interpretation by overnight radiologist. Reviewed by: Liu Aguirre MD on 02/07/2020 6:21 AM [place] Approved by: Liu Aguirre MD on 02/07/2020 6:21 AM [facility] Station ID: [id number]
--- NOTE | 2020-02-07 07:31 | CT Report ---
PROCEDURE: CHEST W INDICATIONS: Chest trauma, blunt, low energy CONTRAST: IV CONTRAST: Optiray 320 ml: 100 PO CONTRAST: *NO PO CONTRAST TECHNIQUE: After the administration of intravenous contrast, 5 mm thick sections acquired from the pulmonary api ehsan to the posterior costophrenic angles. 7 mm thick coronal MIP reformats were acquired. For radia tion dose reduction, the following was used: automated exposure control, adjustment of mA and/or kV according to patient size. COMPARISON: Chest radiograph dated 03/18/2018 FINDINGS: Image quality: Excellent. Lungs and pleura: No acute air space opacities. Bibasilar atelectasis. 6 mm calcified granuloma in t he right lung base. No pleural effusions or pneumothorax. Central and peripheral airways are patent and normal in caliber. Mediastinum: Heart size is normal. Atherosclerotic calcifications of the coronary arteries are noted . No pericardial effusion. No mediastinal or hilar adenopathy by size criteria. Thoracic aorta and central pulmonary arteries are normal in size. Atherosclerotic calcifications of the thoracic aorta a re noted. Esophagus is normal in caliber. No hiatal hernia. Bones and chest wall: No suspicious bony lesions. No acute vertebral body compression fractures. N o axillary or supraclavicular adenopathy by size criteria. Thyroid gland is homogeneous and has a fe w nodules measuring up to 10 mm in size.. Abdomen: Visualized upper abdominal solid organs appear normal. Upper abdominal bowel loops are nor mal in caliber. 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 IMPRESSION: CT chest without acute traumatic injuries. CT chest without acute cardiopulmonary abnormalities. CT chest without acute fractures. Incidental note of thyroid nodules measuring up to 10 mm on the right. No further imaging required. Atherosclerosis. No significant discrepancy with initial interpretation by overnight radiologist. Reviewed by: Liu Aguirre MD on 02/07/2020 6:30 AM [place] Approved by: Liu Aguirre MD on 02/07/2020 6:30 AM [facility] Station ID: [id number]
--- NOTE | 2020-02-07 07:42 | CT Report ---
PROCEDURE: Abdomen/Pelvis W INDICATIONS: Abdominal trauma, blunt CONTRAST: IV CONTRAST: Optiray 320 ml: 100 PO CONTRAST: *NO PO CONTRAST TECHNIQUE: After the administration of intravenous contrast, 5 mm thick sections acquired from the diaphragms to the symphysis. 5 mm thick coronal and sagittal reformats were acquired. For radiation dose reducti on, the following was used: automated exposure control, adjustment of mA and/or kV according to eddy ent size. COMPARISON: None. FINDINGS: Image quality: Excellent. ABDOMEN: Lung bases: Lung bases are clear. Heart size is normal. Solid organs: Liver and spleen are normal in size and enhancement. Hepatic steatosis. Splenic calcif ications are present likely sequela prior granulomatous disease. Gallbladder is decompressed. Biliar y system is non dilated. Pancreas enhances normally. No adrenal nodules. Kidneys demonstrate xander l size and enhancement, without hydronephrosis. Peritoneum and bowel: Colonic diverticulosis without acute diverticulitis. Normal appendix. Bowel lo ops demonstrate normal wall thickness and caliber. No free fluid or air. Nodes and vessels: No retroperitoneal or mesenteric adenopathy by size criteria. Aorta and inferior vena cava are normal in size. Atherosclerotic calcifications of the abdominal aorta without aneurys mal dilatation. Miscellaneous: No ventral hernias. PELVIS: Genitourinary: Bladder wall thickness is mildly thickened preferentially. No pericystic inflammatory changes. Miscellaneous: No inguinal hernias or adenopathy. Bones: No suspicious bony lesions. No acute vertebral body compression fractures. Moderate multile faye lumbar spondylosis most prominent at L4-5 and L5-S1. There is grade 1 anterolisthesis of L4 on L5 . No pars defects. IMPRESSION: 1. CT abdomen and pelvis without acute abnormalities. Specifically, no acute traumatic injuries to th e solid or hollow organs. 2. No acute fracture. 3. Mild circumferential thickening of the urinary bladder which may be related to incomplete distenti on versus possible cystitis. Clinical/laboratory correlation recommended. 4. Colonic diverticulosis without acute diverticulitis. 5. Normal appendix. No significant discrepancy with initial interpretation by overnight radiologist. Reviewed by: Liu Aguirre MD on 02/07/2020 6:41 AM [place] Approved by: Liu Aguirre MD on 02/07/2020 6:41 AM [facility] Station ID: [id number]
== END 2020-02-07 01:46 | disposition home or self-care (01) ==
LOC: ED 21:12
DX: M54.5 Low back pain (principal); R07.81 Pleurodynia; R26.81 Unsteadiness on feet; W01.198A Fall on same level from slipping, tripping and stumbling with subsequent striking against other object, initial encounter; X50.1XXA Overexertion from prolonged static or awkward postures, initial encounter; I10 Essential (primary) hypertension; E11.9 Type 2 diabetes mellitus without complications; Z79.4 Long term (current) use of insulin; G20 Parkinson's disease; Z79.82 Long term (current) use of aspirin
CPT/HCPCS: 36415; 70450; 71260; 72125; 74177; 80053; 81001; 83690; 85025; 96361; 96374; 99284; Q9967

== ENCOUNTER 2020-03-03 08:00 | Outpatient (CLI) | payer MEDICARE, OTHER ==
[2020-03-03 18:51] LABS: CHOL/HDL RATIO 4.3 (<5.0); CHOLESTEROL 155 mg/dL; HDL CHOLESTEROL 36 mg/dL; LDL CHOLESTEROL,CALCULATED 85 mg/dL; LDL/HDL RATIO 2.4 (<3.6); VLDL CHOLESTEROL 34 mg/dL
[2020-03-03 20:46] LABS: HEMOGLOBIN A1c% 8.4 % (4.27-6.07)
== END 2020-03-03 23:59 | disposition home or self-care (01) ==
LOC: LAB.WCP 08:00
PROVIDERS: ATTEND Physician Assistant Medical
DX: E11.29 Type 2 diabetes mellitus with other diabetic kidney complication (principal)
CPT/HCPCS: 36415; 80061; 83036; 83721

== ENCOUNTER 2020-06-01 15:57 | Outpatient (CLI) | payer MEDICARE, OTHER ==
[2020-06-01 18:15] LABS: BASOPHILS % (AUTO) 0.4 %; EOSINOPHILS # (AUTO) 0.2 10^3/uL (0.0-0.7); EOSINOPHILS % (AUTO) 1.7 %; HCT - HEMATOCRIT 35.6 % (42.0-52.0); HGB - HEMOGLOBIN 11.5 g/dL (14.0-18.0); LYMPHOCYTES # (AUTO) 2.3 10^3/uL (1.5-3.5); LYMPHOCYTES % (AUTO) 24.1 %; MEAN CORPUSCULAR HEMOGLOBIN 30.1 pg (27.0-31.0); MEAN CORPUSCULAR HGB CONC 32.3 g/dL (32.0-36.0); MEAN CORPUSCULAR VOLUME 93.2 fL (80.0-94.0); MONOCYTES # (AUTO) 0.8 10^3/uL (0.0-1.0); MONOCYTES % (AUTO) 8.2 %; NEUTROPHILS # (AUTO) 6.1 10^3/uL (1.5-6.6); NEUTROPHILS % (AUTO) 63.8 %; PLT - PLATELET COUNT 176 10^3/uL (130-450); RED BLOOD COUNT 3.82 10^6/uL (4.70-6.10); RED CELL DISTRIBUTION WIDTH 12.5 % (12.0-15.0); WHITE BLOOD COUNT 9.6 x10^3/uL (4.8-10.8)
[2020-06-01 18:25] LABS: ALBUMIN 3.9 g/dL (3.2-5.5); ALBUMIN/GLOBULIN RATIO 1.4 (1.0-2.2); ALKALINE PHOSPHATASE 52 IU/L (42-121); ALT ALANINE AMINOTRANSFERASE < 10 IU/L (10-60); AST ASPARTATE AMINOTRANSFERASE < 10 IU/L (10-42); BILIRUBIN,TOTAL 0.8 mg/dL (0.2-1.0); BUN - BLOOD UREA NITROGEN 30 mg/dL (6-20); CALCIUM 9.3 mg/dL (8.5-10.3); CARBON DIOXIDE - CO2 27 mmol/L (21-32); CHLORIDE 103 mmol/L (101-111); CREATININE 1.1 mg/dL (0.6-1.2); GFR - MDRD 64 (>89); GLUCOSE 224 mg/dL (70-100); POTASSIUM 4.5 mmol/L (3.5-5.0); SODIUM 138 mmol/L (135-145); TOTAL PROTEIN 6.6 g/dL (6.7-8.2)
[2020-06-01 20:39] LABS: ESTIMATED AVERAGE GLUCOSE 180 mg/dL (70-100); HEMOGLOBIN A1c% 7.9 % (4.27-6.07)
== END 2020-06-01 23:59 | disposition home or self-care (01) ==
LOC: LAB.WCP 15:57
PROVIDERS: ATTEND Physician Assistant Medical
DX: E11.29 Type 2 diabetes mellitus with other diabetic kidney complication (principal); K21.9 Gastro-esophageal reflux disease without esophagitis
CPT/HCPCS: 36415; 80053; 83036; 85025

== ENCOUNTER 2020-10-24 00:46 | Outpatient (CLI) | payer MEDICARE, OTHER | END 2020-10-24 00:47 | disposition EMS.NT | LOC: EMS 00:46 | DX: Z03.89 Encounter for observation for other suspected diseases and conditions ruled out (principal) ==

== ENCOUNTER 2020-11-08 08:00 | Outpatient (CLI) | payer MEDICARE, OTHER ==
[2020-11-08 18:14] LABS: BASOPHILS % (AUTO) 0.3 %; EOSINOPHILS # (AUTO) 0.1 10^3/uL (0.0-0.7); HGB - HEMOGLOBIN 10.8 g/dL (14.0-18.0); LYMPHOCYTES # (AUTO) 2.1 10^3/uL (1.5-3.5); LYMPHOCYTES % (AUTO) 26.9 %; MEAN CORPUSCULAR HGB CONC 31.8 g/dL (32.0-36.0); MEAN CORPUSCULAR VOLUME 91.2 fL (80.0-94.0); MEAN PLATELET VOLUME 11.9 fL (7.4-11.4); MONOCYTES # (AUTO) 0.6 10^3/uL (0.0-1.0); MONOCYTES % (AUTO) 7.1 %; NEUTROPHILS # (AUTO) 4.9 10^3/uL (1.5-6.6); NEUTROPHILS % (AUTO) 61.7 %; PLT - PLATELET COUNT 172 10^3/uL (130-450); RED BLOOD COUNT 3.73 10^6/uL (4.70-6.10); RED CELL DISTRIBUTION WIDTH 13.2 % (12.0-15.0); WHITE BLOOD COUNT 7.9 x10^3/uL (4.8-10.8)
[2020-11-08 18:34] LABS: ALBUMIN 3.9 g/dL (3.2-5.5); ALBUMIN/GLOBULIN RATIO 1.6 (1.0-2.2); ALKALINE PHOSPHATASE 48 IU/L (42-121); ALT ALANINE AMINOTRANSFERASE < 10 IU/L (10-60); AST ASPARTATE AMINOTRANSFERASE < 10 IU/L (10-42); BILIRUBIN,TOTAL 0.8 mg/dL (0.2-1.0); BUN - BLOOD UREA NITROGEN 31 mg/dL (6-20); CALCIUM 9.3 mg/dL (8.5-10.3); CARBON DIOXIDE - CO2 27 mmol/L (21-32); CHLORIDE 103 mmol/L (101-111); CHOL/HDL RATIO 2.9 (<5.0); CHOLESTEROL 132 mg/dL; CREATININE 1.4 mg/dL (0.6-1.2); GFR - MDRD 48 (>89); GLUCOSE 70 mg/dL (70-100); HDL CHOLESTEROL 45 mg/dL; LDL CHOLESTEROL,CALCULATED 75 mg/dL; LDL/HDL RATIO 1.7 (<3.6); POTASSIUM 4.2 mmol/L (3.5-5.0); SODIUM 139 mmol/L (135-145); TOTAL PROTEIN 6.3 g/dL (6.7-8.2); TRIGLYCERIDES 60 mg/dL; VLDL CHOLESTEROL 12 mg/dL
[2020-11-08 20:20] LABS: ESTIMATED AVERAGE GLUCOSE 189 mg/dL (70-100); HEMOGLOBIN A1c% 8.2 % (4.27-6.07)
== END 2020-11-08 23:59 | disposition home or self-care (01) ==
LOC: LAB.WCP 08:00
PROVIDERS: ATTEND Physician Assistant Medical
DX: E11.29 Type 2 diabetes mellitus with other diabetic kidney complication (principal); N19 Unspecified kidney failure; D64.9 Anemia, unspecified
CPT/HCPCS: 36415; 80053; 80061; 82728; 83036; 83721; 85025

== ENCOUNTER 2020-11-29 08:00 | Outpatient (CLI) | payer MEDICARE, OTHER ==
[2020-11-29 18:23] LABS: CREATININE,URINE 112.4 mg/dL
== END 2020-11-29 23:59 | disposition home or self-care (01) ==
LOC: LAB.WCP 08:00
PROVIDERS: ATTEND Physician Assistant Medical
DX: L08.9 Local infection of the skin and subcutaneous tissue, unspecified (principal); E11.29 Type 2 diabetes mellitus with other diabetic kidney complication
CPT/HCPCS: 82043; 82570; 87070; 87205

== ENCOUNTER 2021-01-25 08:00 | Outpatient (CLI) | payer MEDICARE, OTHER ==
[2021-01-25 18:09] LABS: CALCIUM 9.7 mg/dL (8.5-10.3); CREATININE 1.1 mg/dL (0.6-1.2); POTASSIUM 4.4 mmol/L (3.5-5.0)
[2021-01-25 20:17] LABS: ESTIMATED AVERAGE GLUCOSE 171 mg/dL (70-100); HEMOGLOBIN A1c% 7.6 % (4.27-6.07)
== END 2021-01-25 23:59 | disposition home or self-care (01) ==
LOC: LAB.WCP 08:00
PROVIDERS: ATTEND Physician Assistant Medical
DX: E11.29 Type 2 diabetes mellitus with other diabetic kidney complication (principal)
CPT/HCPCS: 36415; 80048; 83036

== ENCOUNTER 2021-05-20 11:25 | Outpatient (CLI) | payer MEDICARE, OTHER ==
[2021-05-20 14:00] LABS: BASOPHILS % (AUTO) 0.4 %; EOSINOPHILS # (AUTO) 0.3 10^3/uL (0.0-0.7); EOSINOPHILS % (AUTO) 3.5 %; HCT - HEMATOCRIT 36.9 % (42.0-52.0); HGB - HEMOGLOBIN 11.7 g/dL (14.0-18.0); LYMPHOCYTES # (AUTO) 2.4 10^3/uL (1.5-3.5); LYMPHOCYTES % (AUTO) 31.8 %; MEAN CORPUSCULAR HGB CONC 31.7 g/dL (32.0-36.0); MEAN CORPUSCULAR VOLUME 91.6 fL (80.0-94.0); MEAN PLATELET VOLUME 12.1 fL (7.4-11.4); MONOCYTES # (AUTO) 0.6 10^3/uL (0.0-1.0); MONOCYTES % (AUTO) 7.4 %; NEUTROPHILS % (AUTO) 54.5 %; PLT - PLATELET COUNT 203 10^3/uL (130-450); RED BLOOD COUNT 4.03 10^6/uL (4.70-6.10); RED CELL DISTRIBUTION WIDTH 12.9 % (12.0-15.0); WHITE BLOOD COUNT 7.4 x10^3/uL (4.8-10.8)
[2021-05-20 14:10] LABS: ESTIMATED AVERAGE GLUCOSE 177 mg/dL (70-100); HEMOGLOBIN A1c% 7.8 % (4.27-6.07)
[2021-05-20 14:19] LABS: ALBUMIN 3.9 g/dL (3.2-5.5); ALBUMIN/GLOBULIN RATIO 1.3 (1.0-2.2); ALKALINE PHOSPHATASE 64 IU/L (42-121); ALT ALANINE AMINOTRANSFERASE < 10 IU/L (10-60); AST ASPARTATE AMINOTRANSFERASE < 10 IU/L (10-42); BILIRUBIN,TOTAL 0.8 mg/dL (0.2-1.0); BUN - BLOOD UREA NITROGEN 32 mg/dL (6-20); CARBON DIOXIDE - CO2 29 mmol/L (21-32); CHLORIDE 102 mmol/L (101-111); CHOL/HDL RATIO 3.7 (<5.0); CHOLESTEROL 132 mg/dL; CREATININE 1.5 mg/dL (0.6-1.2); GFR - MDRD 44 (>89); GLUCOSE 191 mg/dL (70-100); HDL CHOLESTEROL 36 mg/dL; LDL CHOLESTEROL,CALCULATED 76 mg/dL; LDL/HDL RATIO 2.1 (<3.6); POTASSIUM 4.9 mmol/L (3.5-5.0); SODIUM 139 mmol/L (135-145); TOTAL PROTEIN 6.9 g/dL (6.7-8.2); TRIGLYCERIDES 99 mg/dL; VLDL CHOLESTEROL 20 mg/dL
== END 2021-05-20 11:26 | disposition home or self-care (01) ==
LOC: LAB.N 11:25
PROVIDERS: ATTEND Physician Assistant Medical
DX: D64.9 Anemia, unspecified (principal); E11.29 Type 2 diabetes mellitus with other diabetic kidney complication
CPT/HCPCS: 36415; 80053; 80061; 83036; 83721; 85025

== ENCOUNTER 2021-06-21 13:11 | Outpatient (CLI) | payer MEDICARE, OTHER | END 2021-06-21 23:59 | disposition short-term general hospital (02) | LOC: EMS 13:11 | DX: S49.91XA Unspecified injury of right shoulder and upper arm, initial encounter (principal); W01.190A Fall on same level from slipping, tripping and stumbling with subsequent striking against furniture, initial encounter; Y93.01 Activity, walking, marching and hiking; Y92.008 Other place in unspecified non-institutional (private) residence as the place of occurrence of the external cause | CPT/HCPCS: A0425; A0429 ==

== ENCOUNTER 2021-08-16 11:55 | Outpatient (CLI) | payer MEDICARE, OTHER ==
[2021-08-16 18:03] LABS: CALCIUM 9.7 mg/dL (8.5-10.3); CREATININE 1.3 mg/dL (0.6-1.2); POTASSIUM 4.1 mmol/L (3.5-5.0)
[2021-08-16 20:44] LABS: ESTIMATED AVERAGE GLUCOSE 206 mg/dL (70-100); HEMOGLOBIN A1c% 8.8 % (4.27-6.07)
== END 2021-08-16 11:56 | disposition home or self-care (01) ==
LOC: LAB.N 11:55
PROVIDERS: ATTEND Physician Assistant Medical
DX: E11.29 Type 2 diabetes mellitus with other diabetic kidney complication (principal)
CPT/HCPCS: 36415; 80048; 83036

== ENCOUNTER 2021-11-27 12:08 | Outpatient (CLI) | payer MEDICARE, OTHER | END 2021-11-27 12:09 | disposition short-term general hospital (02) | LOC: EMS 12:08 | DX: M25.552 Pain in left hip (principal); W10.9XXA Fall (on) (from) unspecified stairs and steps, initial encounter; Y92.009 Unspecified place in unspecified non-institutional (private) residence as the place of occurrence of the external cause | CPT/HCPCS: A0425; A0427 ==

== ENCOUNTER 2021-12-16 18:19 | Outpatient (CLI) | payer MEDICARE, OTHER | END 2021-12-16 18:20 | disposition critical access hospital (66) | LOC: EMS 18:19 | DX: S49.91XA Unspecified injury of right shoulder and upper arm, initial encounter (principal); S01.01XA Laceration without foreign body of scalp, initial encounter; S51.012A Laceration without foreign body of left elbow, initial encounter; W01.198A Fall on same level from slipping, tripping and stumbling with subsequent striking against other object, initial encounter; Y92.008 Other place in unspecified non-institutional (private) residence as the place of occurrence of the external cause | CPT/HCPCS: A0425; A0429 ==

== ENCOUNTER 2021-12-16 18:35 | Emergency (ER) | payer MEDICARE, OTHER ==
[2021-12-16] MEDS ORDERED: ACETAMINOPHEN 500 MG TABLET PO STA (18:42)
[2021-12-16] MEDS ORDERED: TETANUS/DIPHTHERIA/PERTUSSIS 0.5 ML SYRINGE IM ONE (18:44)
--- NOTE | 2021-12-16 18:53 | ED Physician Documentation ---
PD HPI UPPER EXT INJURY - Stated complaint Stated Complaint: GLF, HIT HEAD - Chief complaint Chief Complaint: Trauma Ext - History obtained from History obtained from: Patient - Additonal information Additional information: 86-year-old gentleman was at home and he was out working on the [employer] and suffered a fall. He went down to his right side and hit the back of his head and his right shoulder on the gate next was patio. He had no loss of consciousness. Main complaint is right shoulder pain for which he declines anything stronger for pain. He has a skin tear on the Left forearm. He does no t when know when his last tetanus was. He also complains of some pain near the right shoulder blade. Review of Systems Ten Systems: 10 systems reviewed and negative Constitutional: reports: Reviewed and negative Throat: reports: Reviewed and negative Cardiac: reports: Reviewed and negative Respiratory: reports: Reviewed and negative PD PAST MEDICAL HISTORY - Past Medical History Cardiovascular: Hypertension Respiratory: None Endocrine/Autoimmune: Type 2 diabetes Musculoskeletal: Other - Present Medications Home Medications: Ambulatory Orders Medication Instructions Recorded Confirmed Aspirin 81 mg PO DAILY 03/11/17 10/10/20 Carbidopa/Levodopa [Carbidopa-Levo 100 mg PO QID 03/11/17 10/10/20 ER 25-100 Tab] Esomeprazole Magnesium 20 mg PO DAILY 03/11/17 10/10/20 Fenofibrate 160 mg PO DAILY 03/11/17 10/10/20 Insulin Aspart [NovoLOG] 8 - 14 units SUBQ AC 03/11/17 10/10/20 Insulin Glargine [Lantus Solostar] 24 units SUBQ QDBREAKFAST 03/11/17 10/10/20 Simvastatin 40 mg PO QPM 03/11/17 10/10/20 lisinopriL [Lisinopril] 20 mg PO DAILY 03/11/17 10/10/20 Latanoprost 0.005% Ophth Drops 1 drops EACHEYE QPM 10/10/20 10/10/20 [Xalatan Ophth Drops] SITagliptin [Januvia] 100 mg PO DAILY 10/10/20 10/10/20 Timolol 0.5% Ophth Drops [Timoptic 1 drops EACHEYE BID 10/10/20 10/10/20 0.5% Ophth Drops] - Allergies Allergies/Adverse Reactions: Allergies Allergy/AdvReac Type Severity Reaction Status Date / Time No Known Drug Allergies Allergy Verified 11/23/21 17:15 - Social History Does the pt smoke?: No Smoking Status: Never smoker PD ED PE NORMAL - Vitals Vital signs reviewed: Yes - General General: Alert and oriented X 3, Other (Parkinsonian tremor) - HEENT HEENT: PERRL, EOMI - Neck Neck: Supple, no meningeal sign, No bony TTP - Cardiac Cardiac: RRR, No murmur - Respiratory Respiratory: No respiratory distress, Clear bilaterally - Abdomen Abdomen: Normal bowel sounds, Soft, Non tender - Back Back: No CVA TTP, No spinal TTP - Derm Derm: Normal color, Warm and dry - Extremities Extremities: Other (He has diffuse tenderness of both shoulders, both elbows, and the left wrist. There is a 4 cm diameter shallow skin tear over the proximal dorsal left forearm.) - Neuro Neuro: Alert and oriented X 3, Normal speech Eye Opening: Spontaneous Motor: Obeys Commands Verbal: Oriented GCS Score: 15 Results - Vitals Vitals: Vital Signs - 24 hr 12/16/21 12/16/21 18:41 21:28 Temperature 37.3 C Heart Rate 61 62 Respiratory 16 20 Rate Blood Pressure 150/133 H 171/73 H O2 Saturation 99 95 Oxygen O2 Source Room air Procedures - Laceration (location) Left forearm Length in cm: 4 Wound type: Superficial Wound preparation: Irrigated copiously NS Skin layer closure: Dermabond, Steri strips Other: Tetanus booster given PD MEDICAL DECISION MAKING - ED course ED course: 86 yo BIBA p fall. Multiple painful areas and skin tear LFA, but no obvious serious injuries. Given age, thorough imaging was ordered and care to Dr Sage at shift change pending completion of imaging and radiology interpretations. Departure - Departure Disposition: 01 Home, Self Care Clinical Impression: Fall from ground level Skin tear of left forearm without complication Qualifiers: Encounter type: initial encounter Qualified Code(s): S51.812A - Laceration without foreign body of left forearm, initial encounter Head contusion Qualifiers: Encounter type: initial encounter Contusion of head detail: other part of head Qualified Code(s): S00.83XA - Contusion of other part of head, initial encounter Contusion of back Qualifiers: Encounter type: initial encounter Laterality: right Qualified Code(s): S20.221A - Contusion of right back wall of thorax, initial encounter Contusion of left shoulder Qualifiers: Encounter type: initial encounter Qualified Code(s): S40.012A - Contusion of left shoulder, initial encounter Contusion of right shoulder Qualifiers: Encounter type: initial encounter Qualified Code(s): S40.011A - Contusion of right shoulder, initial encounter Contusion of right elbow Qualifiers: Encounter type: initial encounter Qualified Code(s): S50.01XA - Contusion of right elbow, initial encounter Left elbow contusion Qualifiers: Encounter type: initial encounter Qualified Code(s): S50.02XA - Contusion of left elbow, initial encounter Left wrist sprain Qualifiers: Encounter type: initial encounter Qualified Code(s): S63.502A - Unspecified sprain of left wrist, initial encounter Condition: Good Record reviewed to determine appropriate education?: Yes Instructions: ED Laceration Ext Skin Glue Follow-Up: Jennifer Bernal PA-C [Provider Admit Priv/Credential] - Comments: Your x-rays and CT scans do not show any signs of internal bleeding, organ injury, fractures. You will no doubt be sore from the fall in multiple areas. I would suggest use of Tylenol 500 mg or 650 mg 4 times daily for the next 5 or 6 days to preempt on pain. Leave the initial bandaging on the left elbow laceration in place for a few days. At that point you can remove the bandaging and start with Zaina bandaging and wrap on it. Allow the Steri-Strips and such to fall off on their own after commonly week or so. Follow-up with your primary care with regard to any persisting pains and also recheck of the wounds. Discharge Date/Time: 12/16/21 21:29
--- OUTSIDE RECORDS SUMMARY | 2021-12-16 19:00 | EXTERNAL MEDICAL SUMMARY RPT | Continuity of Care Document ---
:1935 Author Organization [facility] Address [address] [place] [address] Phone Allergies and Intolerances date description facility type (no date) No Known Drug Allergies [facility] (unkn own) Encounters No information. Functional Status No information. Immunizations No information. Medications No information. Problems No information. Procedures No information. Results/Labs test date author facility value unit interpret ation Result panel 1 (unknown) (no date) (unknown) (unknown) (no value) (units (un known) unknown) (unknown) (no date) (unknown) (unknown) 11/27/21 (units (unkn own) unknown) (unknown) (no date) (unknown) (unknown) [address] (units (unk nown) [address] unknown) (unknown) (no date) (unknown) (unknown) 159 (units (unkn own) unknown) (unknown) (no date) (unknown) (unknown) Accession (units (unk nown) Number: unknown) [id number] (unknown) (no date) (unknown) (unknown) Accession (units (unk nown) Number: unknown) [id number] (unknown) (no date) (unknown) (unknown) Age/Sex: 86 / (units (unknown) M Date of unknown) Service: (unknown) (no date) (unknown) (unknown) [place], [place] (units (unknown) [address] unknown) (unknown) (no date) (unknown) (unknown) Approved by: (units ( unknown) Mikael unknownZulema Ford M.D. on 11/27/2021 at 14:39 (unknown) (no date) (unknown) (unknown) Approved by: (units ( unknown) Jeremiah Milton, carlos Foster on 11/27/2021 at 14:17 (unknown) (no date) (unknown) (unknown) Bones: No (units (unk nown) fractures or unknown) dislocations. No suspicious bony lesions. (unknown) (no date) (unknown) (unknown) Bones: No (units (unk nown) fractures or unknown) dislocations. Pelvic ring appears intact. No (unknown) (no date) (unknown) (unknown) COMPARISON: (units (u nknown) None. unknown) (unknown) (no date) (unknown) (unknown) : (units (unkn own) 1935 unknown) Acct:[id number] (unknown) (no date) (unknown) (unknown) Dictated by: (units ( unknown) Mikeal unknown) Kristin Ford on 11/27/2021 at 14:38 (unknown) (no date) (unknown) (unknown) Dictated by: (units ( unknown) Jeremiah Milton, unknownZulema Foster on 11/27/2021 at 14:16 (unknown) (no date) (unknown) (unknown) FINDINGS: (units (unk nown) unknown) (unknown) (no date) (unknown) (unknown) IMPRESSION: No (units (unknown) acute unknown) abnormality of the left elbow (unknown) (no date) (unknown) (unknown) IMPRESSION: (units (u nknown) unknown) (unknown) (no date) (unknown) (unknown) INDICATIONS: (units ( unknown) GLF unknown) (unknown) (no date) (unknown) (unknown) If concern for (units (unknown) occult fracture unknown) consider CT bony pelvis. (unknown) (no date) (unknown) (unknown) [facility] (unknown) (no date) (unknown) (unknown) Loc: ED (units (unkn own) unknown) (unknown) (no date) (unknown) (unknown) No fracture (units (u nknown) identified. unknown) (unknown) (no date) (unknown) (unknown) Ordering (units (unkn own) Provider: unknown) Octavio Leon MD (unknown) (no date) (unknown) (unknown) PROCEDURE: XR (units (unknown) ELBOW LT MIN 3V unknown) (unknown) (no date) (unknown) (unknown) PROCEDURE: XR (units (unknown) HIP W PEL IF unknown) DONE LT 2V (unknown) (no date) (unknown) (unknown) Patient: (units (unkn own) Isaac Jackson unknown) MR#: [id number] (unknown) (no date) (unknown) (unknown) Procedure: XR (units (unknown) elbow LT min 3V unknown) (unknown) (no date) (unknown) (unknown) Procedure: XR (units (unknown) hip w pel if unknown) done LT 2V (unknown) (no date) (unknown) (unknown) Signed (units (unkn own) unknown) (unknown) (no date) (unknown) (unknown) Soft tissues: (units (unknown) No elbow joint unknown) effusion. No suspicious soft tissue (unknown) (no date) (unknown) (unknown) Soft tissues: (units (unknown) The visualized unknown) bowel gas pattern is normal. No suspicious soft (unknown) (no date) (unknown) (unknown) TECHNIQUE: 3 (units ( unknown) views of the unknown) elbow were acquired. (unknown) (no date) (unknown) (unknown) TECHNIQUE: AP (units (unknown) pelvis with unknown) lateral view(s) of the left hip(s). (unknown) (no date) (unknown) (unknown) XRay Report (units (u nknown) unknown) (unknown) (no date) (unknown) (unknown) calcifications (units (unknown) . unknown) (unknown) (no date) (unknown) (unknown) lesions. (units (unkn own) Moderate unknown) bilateral hip DJD. (unknown) (no date) (unknown) (unknown) suspicious (units (un known) bony unknown) (unknown) (no date) (unknown) (unknown) tissue (units (unkn own) unknown) Result panel 2 (unknown) (no (unknown) (unknown) (no value) (units (unk nown) date) unknown) (unknown) (no (unknown) (unknown) (Voltaren (units (unkn own) date) Arthritis Pain) unknown) #100 grams (unknown) (no (unknown) (unknown) 0.4 mg PO DAILY (units (unknown) date) Qty: 10 0RF unknown) (unknown) (no (unknown) (unknown) 11/27/21 13:17 (units (unknown) date) unknown) (unknown) (no (unknown) (unknown) 11/27/21 (units (unkno wn) date) unknown) (unknown) (no (unknown) (unknown) 1 patch topical (units (unknown) date) DAILY PRN unknown) (Reason: shoulder pain) Qty: 15 0RF (unknown) (no (unknown) (unknown) 13:01 (units (unkno wn) date) unknown) (unknown) (no (unknown) (unknown) 2 g topical QID (units (unknown) date) PRN (Reason: unknown) shoulder pain) Qty: 100 0RF (unknown) (no (unknown) (unknown) 592 (units (unkno wn) date) unknown) (unknown) (no (unknown) (unknown) Age/Sex: 86 / M (units (unknown) date) unknown) (unknown) (no (unknown) (unknown) Allergies (units (unkn own) date) unknown) (unknown) (no (unknown) (unknown) Allergy/AdvReac (units (unknown) date) Type Severity unknown) Reaction Status Date / Time (unknown) (no (unknown) (unknown) Blood Pressure (units (unknown) date) 125/84 11/27/21 unknown) 13:01 (unknown) (no (unknown) (unknown) Blood Pressure (units (unknown) date) 125/84 unknown) (unknown) (no (unknown) (unknown) Chief (units (unkno wn) date) Complaint: Fall unknown) (unknown) (no (unknown) (unknown) Course (units (unkno wn) date) unknown) (unknown) (no (unknown) (unknown) : 1935 (units (unknown) date) Acct:[id number] unknown) (unknown) (no (unknown) (unknown) Date of (units (unkno wn) date) Service: unknown) 11/27/21 (unknown) (no (unknown) (unknown) Departure (units (unkn own) date) unknown) (unknown) (no (unknown) (unknown) Discharge Plan (units (unknown) date) unknown) (unknown) (no (unknown) (unknown) ED Orders (units (unkn own) date) unknown) (unknown) (no (unknown) (unknown) ER Physician: (units ( unknown) date) Vanesa Smith unknown) [employer] HELPER (unknown) (no (unknown) (unknown) Emergency (units (unkn own) date) Report unknown) (unknown) (no (unknown) (unknown) Exam (units (unkno wn) date) unknown) (unknown) (no (unknown) (unknown) General (units (unkno wn) date) unknown) (unknown) (no (unknown) (unknown) HPI - Fall (units (unk nown) date) unknown) (unknown) (no (unknown) (unknown) HPI Narrative: (units (unknown) date) unknown) (unknown) (no (unknown) (unknown) He can flex his (units (unknown) date) hip without unknown) significant pain, denies pain in his pelvis when (unknown) (no (unknown) (unknown) History of (units (unk nown) date) Present Illness unknown) (unknown) (no (unknown) (unknown) Initial Vital (units ( unknown) date) Signs unknown) (unknown) (no (unknown) (unknown) Initial Vital (units ( unknown) date) Signs: unknown) (unknown) (no (unknown) (unknown) [facility] (units (unknown) date) [address] [place] [address] unknown) [place] [address] (unknown) (no (unknown) (unknown) Medication (units (unk nown) date) Instructions unknown) Recorded (unknown) (no (unknown) (unknown) Mode of (units (unkno wn) date) arrival: EMS unknown) (unknown) (no (unknown) (unknown) No Action (units (unkn own) date) unknown) (unknown) (no (unknown) (unknown) No Known Drug (units ( unknown) date) Allergies unknown) Allergy Verified 06/21/21 13:52 (unknown) (no (unknown) (unknown) Ordered: (units (unkno wn) date) unknown) (unknown) (no (unknown) (unknown) Orders (units (unkno wn) date) unknown) (unknown) (no (unknown) (unknown) Oxygen Delivery (units (unknown) date) Method 11/27/21 unknown) 13:01 (unknown) (no (unknown) (unknown) Oxygen Delivery (units (unknown) date) Method Room Air unknown) (unknown) (no (unknown) (unknown) Patient History (units (unknown) date) unknown) (unknown) (no (unknown) (unknown) Patient: (units (unkno wn) date) Isaac Jackson MR#: unknown) [id number] (unknown) (no (unknown) (unknown) Prescriptions: (units (unknown) date) unknown) (unknown) (no (unknown) (unknown) Previous Rx's (units ( unknown) date) unknown) (unknown) (no (unknown) (unknown) Pulse Oximetry (units (unknown) date) 98 11/27/21 unknown) 13:01 (unknown) (no (unknown) (unknown) Pulse Oximetry (units (unknown) date) 98 unknown) (unknown) (no (unknown) (unknown) Pulse Rate 64 (units ( unknown) date) 11/27/21 13:01 unknown) (unknown) (no (unknown) (unknown) Pulse Rate 64 (units ( unknown) date) unknown) (unknown) (no (unknown) (unknown) Referrals: (units (unk nown) date) unknown) (unknown) (no (unknown) (unknown) Related Data (units (u nknown) date) unknown) (unknown) (no (unknown) (unknown) Respiratory (units (un known) date) Rate 18 11/27/21 unknown) 13:01 (unknown) (no (unknown) (unknown) Respiratory (units (un known) date) Rate 18 unknown) (unknown) (no (unknown) (unknown) Rx (units (unkno wn) date) Instructions: unknown) (unknown) (no (unknown) (unknown) Signed By: (units (unk nown) date) unknown) (unknown) (no (unknown) (unknown) Smoking Status: (units (unknown) date) Never smoker unknown) (unknown) (no (unknown) (unknown) Social History (units (unknown) date) (Reviewed unknown) 06/21/21 @ 15:56 by CHAVO Forbes) (unknown) (no (unknown) (unknown) Source: patient (units (unknown) date) and EMS unknown) (unknown) (no (unknown) (unknown) Stated (units (unkno wn) date) Complaint: GLF unknown) (unknown) (no (unknown) (unknown) Substance Use (units ( unknown) date) Type: does not unknown) use (unknown) (no (unknown) (unknown) Temperature (units (un known) date) 98.3 F 11/27/21 unknown) 13:01 (unknown) (no (unknown) (unknown) Temperature (units (un known) date) 98.3 F unknown) (unknown) (no (unknown) (unknown) This is an (units (unk nown) date) 86-year-old male unknown) who lives at home in [place] and presents to the (unknown) (no (unknown) (unknown) Time Seen by (units (u nknown) date) Provider: unknown) 11/27/21 13:22 (unknown) (no (unknown) (unknown) Vital Signs - 8 (units (unknown) date) hr unknown) (unknown) (no (unknown) (unknown) Vital Signs (units (un known) date) unknown) (unknown) (no (unknown) (unknown) Vital signs: (units (u nknown) date) unknown) (unknown) (no (unknown) (unknown) XR elbow LT min (units (unknown) date) 3V Stat unknown) (unknown) (no (unknown) (unknown) XR hip w pel if (units (unknown) date) done LT 2V Stat unknown) (unknown) (no (unknown) (unknown) Jennifer Bernal, (units (unknown) date) PA-C [Primary unknown) Care Provider] (unknown) (no (unknown) (unknown) alcohol intake (units (unknown) date) frequency: unknown) holidays/special occasions only (unknown) (no (unknown) (unknown) apply to single (units (unknown) date) elbow, wrist or unknown) hand; for hand includes palm/fingers/esteban k of (unknown) (no (unknown) (unknown) diclofenac (units (unk nown) date) sodium 1 % unknown) topical gel 2 g topical QID PRN shoulder pain 06/21/21 (unknown) (no (unknown) (unknown) diclofenac (units (unk nown) date) sodium [Voltaren unknown) Arthritis Pain] 1 % gel (unknown) (no (unknown) (unknown) emergency (units (unkn own) date) department via unknown) after a mechanical fall when he tripped with his right (unknown) (no (unknown) (unknown) foot taking a (units ( unknown) date) step up 2 steps unknown) falling down onto his left side hurting his left (unknown) (no (unknown) (unknown) hand (units (unkno wn) date) unknown) (unknown) (no (unknown) (unknown) hip and his (units (un known) date) left elbow. He unknown) denies taking any anticoagulants, states the pain on (unknown) (no (unknown) (unknown) his left hip is (units (unknown) date) on the lateral unknown) aspect and slightly lower down in his mid thigh. (unknown) (no (unknown) (unknown) leave on most (units ( unknown) date) painful area for unknown) up to 12 hrs (unknown) (no (unknown) (unknown) lidocaine 5 % (units ( unknown) date) adhesive unknown) patch,medicated (unknown) (no (unknown) (unknown) lidocaine 5 % (units ( unknown) date) topical patch 1 unknown) patch topical DAILY PRN shoulder 06/21/21 (unknown) (no (unknown) (unknown) loss of (units (unkno wn) date) consciousness, unknown) (unknown) (no (unknown) (unknown) pain #15 ea (units (un known) date) unknown) (unknown) (no (unknown) (unknown) palpated, (units (unkn own) date) denies any unknown) incontinence or head injury when this happened. Denies any (unknown) (no (unknown) (unknown) tamsulosin 0.4 (units (unknown) date) mg capsule unknown) (Flomax) 0.4 mg PO DAILY #10 caps 02/06/20 (unknown) (no (unknown) (unknown) tamsulosin (units (unk nown) date) [Flomax] 0.4 mg unknown) capsule Result panel 3 (unknown) (no (unknown) (unknown) (no value) (units (unk nown) date) unknown) (unknown) (no (unknown) (unknown) (Voltaren (units (unkn own) date) Arthritis Pain) unknown) #100 grams (unknown) (no (unknown) (unknown) 0.4 mg PO DAILY (units (unknown) date) Qty: 10 0RF unknown) (unknown) (no (unknown) (unknown) 11/27/21 13:17 (units (unknown) date) unknown) (unknown) (no (unknown) (unknown) 11/27/21 (units (unkno wn) date) unknown) (unknown) (no (unknown) (unknown) 1 patch topical (units (unknown) date) DAILY PRN (Reason: unknown) shoulder pain) Qty: 15 0RF (unknown) (no (unknown) (unknown) 13:01 (units (unkno wn) date) unknown) (unknown) (no (unknown) (unknown) 2 g topical QID (units (unknown) date) PRN (Reason: unknown) shoulder pain) Qty: 100 0RF (unknown) (no (unknown) (unknown) 592 (units (unkno wn) date) unknown) (unknown) (no (unknown) (unknown) Age/Sex: 86 / M (units (unknown) date) unknown) (unknown) (no (unknown) (unknown) Allergies (units (unkn own) date) unknown) (unknown) (no (unknown) (unknown) Allergy/AdvReac (units (unknown) date) Type Severity unknown) Reaction Status Date / Time (unknown) (no (unknown) (unknown) Blood Pressure (units (unknown) date) 125/84 11/27/21 unknown) 13:01 (unknown) (no (unknown) (unknown) Blood Pressure (units (unknown) date) 125 unknown) (unknown) (no (unknown) (unknown) Cardiovascular: (units (unknown) date) regular rate and unknown) rhythm, no peripheral edema, warm extremities (unknown) (no (unknown) (unknown) Chief Complaint: (units (unknown) date) Fall unknown) (unknown) (no (unknown) (unknown) Course (units (unkno wn) date) unknown) (unknown) (no (unknown) (unknown) : 1935 (units (unknown) date) Acct:[id number] unknown) (unknown) (no (unknown) (unknown) Date of Service: (units (unknown) date) 11/27/21 unknown) (unknown) (no (unknown) (unknown) Departure (units (unkn own) date) unknown) (unknown) (no (unknown) (unknown) Discharge Plan (units (unknown) date) unknown) (unknown) (no (unknown) (unknown) ED Orders (units (unkn own) date) unknown) (unknown) (no (unknown) (unknown) ER Physician: (units ( unknown) date) Crew,Vanesa Mitchell unknown) [employer] HELPER (unknown) (no (unknown) (unknown) Emergency Report (units (unknown) date) unknown) (unknown) (no (unknown) (unknown) Exam Narrative: (units (unknown) date) unknown) (unknown) (no (unknown) (unknown) Exam (units (unkno wn) date) unknown) (unknown) (no (unknown) (unknown) GI: abdomen soft, (units (unknown) date) nontender to unknown) palpation, nondistended, without masses, rebound (unknown) (no (unknown) (unknown) General (units (unkno wn) date) unknown) (unknown) (no (unknown) (unknown) General: (units (unkno wn) date) cooperative, unknown) comfortable, in no acute distress, well groomed (unknown) (no (unknown) (unknown) HEENT: (units (unkno wn) date) symmetrical facial unknown) expressions, moist mucous membranes (unknown) (no (unknown) (unknown) HPI - Fall (units (unk nown) date) unknown) (unknown) (no (unknown) (unknown) HPI Narrative: (units (unknown) date) unknown) (unknown) (no (unknown) (unknown) HPI (units (unkno wn) date) unknown) (unknown) (no (unknown) (unknown) He can flex his (units (unknown) date) hip without unknown) significant pain, denies pain in his pelvis when (unknown) (no (unknown) (unknown) History of (units (unk nown) date) Present Illness unknown) (unknown) (no (unknown) (unknown) Initial Vital (units ( unknown) date) Signs unknown) (unknown) (no (unknown) (unknown) Initial Vital (units ( unknown) date) Signs: unknown) (unknown) (no (unknown) (unknown) [facility] (units (unknown) date) [address] unknown) [place] [address] (unknown) (no (unknown) (unknown) MSK: moves all (units (unknown) date) extremities, unknown) neurovascularly intact, no weakness, normal tone (unknown) (no (unknown) (unknown) Medication (units (unk nown) date) Instructions unknown) Recorded (unknown) (no (unknown) (unknown) Mode of arrival: (units (unknown) date) EMS unknown) (unknown) (no (unknown) (unknown) Narrative (units (unkn own) date) unknown) (unknown) (no (unknown) (unknown) Narrative: (units (unk nown) date) unknown) (unknown) (no (unknown) (unknown) Neuro: normal (units ( unknown) date) speech and unknown) cognition, A+O x3, ambulatory, clear speech (unknown) (no (unknown) (unknown) No Action (units (unkn own) date) unknown) (unknown) (no (unknown) (unknown) No Known Drug (units ( unknown) date) Allergies Allergy unknown) Verified 06/21/21 13:52 (unknown) (no (unknown) (unknown) Ordered: (units (unkno wn) date) unknown) (unknown) (no (unknown) (unknown) Orders (units (unkno wn) date) unknown) (unknown) (no (unknown) (unknown) Oxygen Delivery (units (unknown) date) Method 11/27/21 unknown) 13:01 (unknown) (no (unknown) (unknown) Oxygen Delivery (units (unknown) date) Method Room Air unknown) (unknown) (no (unknown) (unknown) Patient History (units (unknown) date) unknown) (unknown) (no (unknown) (unknown) Patient: (units (unkno wn) date) Isaac Jackson MR#: unknown) [id number] (unknown) (no (unknown) (unknown) Prescriptions: (units (unknown) date) unknown) (unknown) (no (unknown) (unknown) Previous Rx's (units ( unknown) date) unknown) (unknown) (no (unknown) (unknown) Psych: mental (units ( unknown) date) status is grossly unknown) normal, congruent mood, normal affect, pleasant (unknown) (no (unknown) (unknown) Pulse Oximetry 98 (units (unknown) date) 11/27/21 13:01 unknown) (unknown) (no (unknown) (unknown) Pulse Oximetry 98 (units (unknown) date) unknown) (unknown) (no (unknown) (unknown) Pulse Rate 64 (units ( unknown) date) 11/27/21 13:01 unknown) (unknown) (no (unknown) (unknown) Pulse Rate 64 (units ( unknown) date) unknown) (unknown) (no (unknown) (unknown) Referrals: (units (unk nown) date) unknown) (unknown) (no (unknown) (unknown) Related Data (units (u nknown) date) unknown) (unknown) (no (unknown) (unknown) Respiratory Rate (units (unknown) date) 18 11/27/21 13:01 unknown) (unknown) (no (unknown) (unknown) Respiratory Rate (units (unknown) date) 18 unknown) (unknown) (no (unknown) (unknown) Respiratory: (units (u nknown) date) normal effort, unknown) able to speak in complete sentences, without (unknown) (no (unknown) (unknown) Review of Systems (units (unknown) date) unknown) (unknown) (no (unknown) (unknown) Review of systems (units (unknown) date) is negative for unknown) acute abnormalities unless otherwise noted in (unknown) (no (unknown) (unknown) Reviewed vitals (units (unknown) date) signs and nursing unknown) notes. (unknown) (no (unknown) (unknown) Rx Instructions: (units (unknown) date) unknown) (unknown) (no (unknown) (unknown) Signed By: (units (unk nown) date) unknown) (unknown) (no (unknown) (unknown) Skin: brisk (units (un known) date) capillary refill, unknown) without pallor or erythema (unknown) (no (unknown) (unknown) Smoking Status: (units (unknown) date) Never smoker unknown) (unknown) (no (unknown) (unknown) Social History (units (unknown) date) (Reviewed 11/27/21 unknown) @ 13:38 by CHAVO Forbes) (unknown) (no (unknown) (unknown) Source: patient (units (unknown) date) and EMS unknown) (unknown) (no (unknown) (unknown) Stated Complaint: (units (unknown) date) GLF unknown) (unknown) (no (unknown) (unknown) Substance Use (units ( unknown) date) Type: does not use unknown) (unknown) (no (unknown) (unknown) Temperature 98.3 (units (unknown) date) F 11/27/21 13:01 unknown) (unknown) (no (unknown) (unknown) Temperature 98.3 (units (unknown) date) F unknown) (unknown) (no (unknown) (unknown) This is an (units (unk nown) date) 86-year-old male unknown) who lives at home in [place] and presents to the (unknown) (no (unknown) (unknown) Time Seen by (units (u nknown) date) Provider: 11/27/21 unknown) 13:22 (unknown) (no (unknown) (unknown) Vital Signs - 8 (units (unknown) date) hr unknown) (unknown) (no (unknown) (unknown) Vital Signs (units (un known) date) unknown) (unknown) (no (unknown) (unknown) Vital signs: (units (u nknown) date) unknown) (unknown) (no (unknown) (unknown) XR elbow LT min (units (unknown) date) 3V Stat unknown) (unknown) (no (unknown) (unknown) XR hip w pel if (units (unknown) date) done LT 2V Stat unknown) (unknown) (no (unknown) (unknown) Jennifer Bernal, (units (unknown) date) PA-C [Primary Care unknown) Provider] (unknown) (no (unknown) (unknown) able to flex and (units (unknown) date) extend his elbow unknown) but complains of left elbow pain. Has not (unknown) (no (unknown) (unknown) alcohol intake (units (unknown) date) frequency: unknown) holidays/special occasions only (unknown) (no (unknown) (unknown) and cooperative (units (unknown) date) unknown) (unknown) (no (unknown) (unknown) apply to single (units (unknown) date) elbow, wrist or unknown) hand; for hand includes palm/fingers/back of (unknown) (no (unknown) (unknown) diclofenac sodium (units (unknown) date) 1 % topical gel 2 unknown) g topical QID PRN shoulder pain 06/21/21 (unknown) (no (unknown) (unknown) diclofenac sodium (units (unknown) date) [Voltaren unknown) Arthritis Pain] 1 % gel (unknown) (no (unknown) (unknown) emergency (units (unkn own) date) department via unknown) after a mechanical fall when he tripped with his right (unknown) (no (unknown) (unknown) foot taking a (units ( unknown) date) step up 2 steps unknown) falling down onto his left side hurting his left (unknown) (no (unknown) (unknown) hand (units (unkno wn) date) unknown) (unknown) (no (unknown) (unknown) he has not tried (units (unknown) date) walking since his unknown) injury. (unknown) (no (unknown) (unknown) hip and his left (units (unknown) date) elbow. He denies unknown) taking any anticoagulants, states the pain on (unknown) (no (unknown) (unknown) his left hip is (units (unknown) date) on the lateral unknown) aspect and slightly lower down in his mid thigh. (unknown) (no (unknown) (unknown) leave on most (units ( unknown) date) painful area for unknown) up to 12 hrs (unknown) (no (unknown) (unknown) lidocaine 5 % (units ( unknown) date) adhesive unknown) patch,medicated (unknown) (no (unknown) (unknown) lidocaine 5 % (units ( unknown) date) topical patch 1 unknown) patch topical DAILY PRN shoulder 06/21/21 (unknown) (no (unknown) (unknown) loss of (units (unkno wn) date) consciousness, unknown) denies any numbness or tingling or sensation changes. Is (unknown) (no (unknown) (unknown) pain #15 ea (units (un known) date) unknown) (unknown) (no (unknown) (unknown) palpated, denies (units (unknown) date) any incontinence unknown) or head injury when this happened. Denies any (unknown) (no (unknown) (unknown) taken any pain (units (unknown) date) medication today. unknown) Patient uses a walker to ambulate at baseline, (unknown) (no (unknown) (unknown) tamsulosin 0.4 mg (units (unknown) date) capsule (Flomax) unknown) 0.4 mg PO DAILY #10 caps 02/06/20 (unknown) (no (unknown) (unknown) tamsulosin (units (unk nown) date) [Flomax] 0.4 mg unknown) capsule (unknown) (no (unknown) (unknown) tenderness or (units ( unknown) date) exquisite unknown) tenderness with exam. (unknown) (no (unknown) (unknown) wheezing, (units (unkn own) date) stridor, or unknown) abnormal breath sounds. No retractions or tachypnea. Result panel 4 (unknown) (no (unknown) (unknown) (no value) (units (unk nown) date) unknown) (unknown) (no (unknown) (unknown) (Voltaren (units (unkn own) date) Arthritis Pain) unknown) #100 grams (unknown) (no (unknown) (unknown) 0.4 mg PO DAILY (units (unknown) date) Qty: 10 0RF unknown) (unknown) (no (unknown) (unknown) 11/27/21 13:17 (units (unknown) date) unknown) (unknown) (no (unknown) (unknown) 11/27/21 (units (unkno wn) date) unknown) (unknown) (no (unknown) (unknown) 1 patch topical (units (unknown) date) DAILY PRN (Reason: unknown) shoulder pain) Qty: 15 0RF (unknown) (no (unknown) (unknown) 13:01 (units (unkno wn) date) unknown) (unknown) (no (unknown) (unknown) 2 g topical QID (units (unknown) date) PRN (Reason: unknown) shoulder pain) Qty: 100 0RF (unknown) (no (unknown) (unknown) 592 (units (unkno wn) date) unknown) (unknown) (no (unknown) (unknown) Acetaminophen (units ( unknown) date) (Acetaminophen 325 unknown) Mg Tablet) 650 mg PO NOW ONE (unknown) (no (unknown) (unknown) Age/Sex: 86 / M (units (unknown) date) unknown) (unknown) (no (unknown) (unknown) Allergies (units (unkn own) date) unknown) (unknown) (no (unknown) (unknown) Allergy/AdvReac (units (unknown) date) Type Severity unknown) Reaction Status Date / Time (unknown) (no (unknown) (unknown) Blood Pressure (units (unknown) date) 125/84 11/27/21 unknown) 13:01 (unknown) (no (unknown) (unknown) Blood Pressure (units (unknown) date) 125/84 unknown) (unknown) (no (unknown) (unknown) Cardiovascular: (units (unknown) date) regular rate and unknown) rhythm, no peripheral edema, warm extremities (unknown) (no (unknown) (unknown) Chief Complaint: (units (unknown) date) Fall unknown) (unknown) (no (unknown) (unknown) Course (units (unkno wn) date) unknown) (unknown) (no (unknown) (unknown) : 1935 (units (unknown) date) Acct:[id number] unknown) (unknown) (no (unknown) (unknown) Date of Service: (units (unknown) date) 11/27/21 unknown) (unknown) (no (unknown) (unknown) Departure (units (unkn own) date) unknown) (unknown) (no (unknown) (unknown) Discharge Plan (units (unknown) date) unknown) (unknown) (no (unknown) (unknown) Discontinued (units (u nknown) date) Medications unknown) (unknown) (no (unknown) (unknown) ED Orders (units (unkn own) date) unknown) (unknown) (no (unknown) (unknown) ER Physician: (units ( unknown) date) HarshawVanesa unknown) [employer] (unknown) (no (unknown) (unknown) Emergency Report (units (unknown) date) unknown) (unknown) (no (unknown) (unknown) Exam Narrative: (units (unknown) date) unknown) (unknown) (no (unknown) (unknown) Exam (units (unkno wn) date) unknown) (unknown) (no (unknown) (unknown) GI: abdomen soft, (units (unknown) date) nontender to unknown) palpation, nondistended, without masses, rebound (unknown) (no (unknown) (unknown) General (units (unkno wn) date) unknown) (unknown) (no (unknown) (unknown) General: (units (unkno wn) date) cooperative, unknown) comfortable, in no acute distress, well groomed (unknown) (no (unknown) (unknown) HEENT: (units (unkno wn) date) symmetrical facial unknown) expressions, moist mucous membranes (unknown) (no (unknown) (unknown) HPI - Fall (units (unk nown) date) unknown) (unknown) (no (unknown) (unknown) HPI Narrative: (units (unknown) date) unknown) (unknown) (no (unknown) (unknown) HPI (units (unkno wn) date) unknown) (unknown) (no (unknown) (unknown) He can flex his (units (unknown) date) hip without unknown) significant pain, denies pain in his pelvis when (unknown) (no (unknown) (unknown) He was given (units (u nknown) date) Tylenol, lidocaine unknown) patch in the emergency department with some (unknown) (no (unknown) (unknown) History of (units (unk nown) date) Present Illness unknown) (unknown) (no (unknown) (unknown) Initial Vital (units ( unknown) date) Signs unknown) (unknown) (no (unknown) (unknown) Initial Vital (units ( unknown) date) Signs: unknown) (unknown) (no (unknown) (unknown) [facility] (units (unknown) date) [address] [place] [address] unknown) [place] [address] (unknown) (no (unknown) (unknown) Lidocaine (units (unkn own) date) (Lidocaine Patch 1 unknown) Each Adh..Patch) 1 each TOP NOW ONE (unknown) (no (unknown) (unknown) Lidocaine (Remove (units (unknown) date) Lidocaine Patch) 1 unknown) each TOP BEDTIME CHARISSA (unknown) (no (unknown) (unknown) MDM - Fall (units (unk nown) date) unknown) (unknown) (no (unknown) (unknown) MDM Narrative (units ( unknown) date) unknown) (unknown) (no (unknown) (unknown) MSK: moves all (units (unknown) date) extremities, unknown) neurovascularly intact, no weakness, normal tone (unknown) (no (unknown) (unknown) Medical decision (units (unknown) date) making narrative: unknown) (unknown) (no (unknown) (unknown) Medication (units (unk nown) date) Instructions unknown) Recorded (unknown) (no (unknown) (unknown) Mode of arrival: (units (unknown) date) EMS unknown) (unknown) (no (unknown) (unknown) Narrative (units (unkn own) date) unknown) (unknown) (no (unknown) (unknown) Narrative: (units (unk nown) date) unknown) (unknown) (no (unknown) (unknown) Neuro: normal (units ( unknown) date) speech and unknown) cognition, A+O x3, ambulatory, clear speech (unknown) (no (unknown) (unknown) No Action (units (unkn own) date) unknown) (unknown) (no (unknown) (unknown) No Known Drug (units ( unknown) date) Allergies Allergy unknown) Verified 06/21/21 13:52 (unknown) (no (unknown) (unknown) Ordered: (units (unkno wn) date) unknown) (unknown) (no (unknown) (unknown) Orders (units (unkno wn) date) unknown) (unknown) (no (unknown) (unknown) Oxygen Delivery (units (unknown) date) Method 11/27/21 unknown) 13:01 (unknown) (no (unknown) (unknown) Oxygen Delivery (units (unknown) date) Method Room Air unknown) (unknown) (no (unknown) (unknown) Patient History (units (unknown) date) unknown) (unknown) (no (unknown) (unknown) Patient (units (unkno wn) date) understands plan unknown) and agrees to discharge home.? All questions and (unknown) (no (unknown) (unknown) Patient: (units (unkno wn) date) Isaac Jackson MR#: unknown) [id number] (unknown) (no (unknown) (unknown) Prescriptions: (units (unknown) date) unknown) (unknown) (no (unknown) (unknown) Previous Rx's (units ( unknown) date) unknown) (unknown) (no (unknown) (unknown) Psych: mental (units ( unknown) date) status is grossly unknown) normal, congruent mood, normal affect, pleasant (unknown) (no (unknown) (unknown) Pulse Oximetry 98 (units (unknown) date) 11/27/21 13:01 unknown) (unknown) (no (unknown) (unknown) Pulse Oximetry 98 (units (unknown) date) unknown) (unknown) (no (unknown) (unknown) Pulse Rate 64 (units ( unknown) date) 11/27/21 13:01 unknown) (unknown) (no (unknown) (unknown) Pulse Rate 64 (units ( unknown) date) unknown) (unknown) (no (unknown) (unknown) Referrals: (units (unk nown) date) unknown) (unknown) (no (unknown) (unknown) Related Data (units (u nknown) date) unknown) (unknown) (no (unknown) (unknown) Respiratory Rate (units (unknown) date) 18 11/27/21 13:01 unknown) (unknown) (no (unknown) (unknown) Respiratory Rate (units (unknown) date) 18 unknown) (unknown) (no (unknown) (unknown) Respiratory: (units (u nknown) date) normal effort, unknown) able to speak in complete sentences, without (unknown) (no (unknown) (unknown) Review of Systems (units (unknown) date) unknown) (unknown) (no (unknown) (unknown) Review of systems (units (unknown) date) is negative for unknown) acute abnormalities unless otherwise noted in (unknown) (no (unknown) (unknown) Reviewed vitals (units (unknown) date) signs and nursing unknown) notes. (unknown) (no (unknown) (unknown) Rx Instructions: (units (unknown) date) unknown) (unknown) (no (unknown) (unknown) Signed By: (units (unk nown) date) unknown) (unknown) (no (unknown) (unknown) Skin: brisk (units (un known) date) capillary refill, unknown) without pallor or erythema (unknown) (no (unknown) (unknown) Smoking Status: (units (unknown) date) Never smoker unknown) (unknown) (no (unknown) (unknown) Social History (units (unknown) date) (Reviewed 11/27/21 unknown) @ 13:38 by Vanesa Smith [employer]) (unknown) (no (unknown) (unknown) Source: patient (units (unknown) date) and EMS unknown) (unknown) (no (unknown) (unknown) Stated Complaint: (units (unknown) date) GLF unknown) (unknown) (no (unknown) (unknown) Stop: 11/27/21 (units (unknown) date) 13:28 unknown) (unknown) (no (unknown) (unknown) Substance Use (units ( unknown) date) Type: does not use unknown) (unknown) (no (unknown) (unknown) Temperature 98.3 (units (unknown) date) F 11/27/21 13:01 unknown) (unknown) (no (unknown) (unknown) Temperature 98.3 (units (unknown) date) F unknown) (unknown) (no (unknown) (unknown) This is an (units (unk nown) date) 86-year-old male unknown) who lives at home in [place] with his , who (unknown) (no (unknown) (unknown) Time Seen by (units (u nknown) date) Provider: 11/27/21 unknown) 13:22 (unknown) (no (unknown) (unknown) Vital Signs - 8 (units (unknown) date) hr unknown) (unknown) (no (unknown) (unknown) Vital Signs (units (un known) date) unknown) (unknown) (no (unknown) (unknown) Vital signs: (units (u nknown) date) unknown) (unknown) (no (unknown) (unknown) XR elbow LT min (units (unknown) date) 3V Stat unknown) (unknown) (no (unknown) (unknown) XR hip w pel if (units (unknown) date) done LT 2V Stat unknown) (unknown) (no (unknown) (unknown) Jennifer Bernal, (units (unknown) date) PA-C [Primary Care unknown) Provider] (unknown) (no (unknown) (unknown) able to flex and (units (unknown) date) extend his elbow unknown) but complains of left elbow pain. Has not (unknown) (no (unknown) (unknown) alcohol intake (units (unknown) date) frequency: unknown) holidays/special occasions only (unknown) (no (unknown) (unknown) amenable to (units (un known) date) discharge home.? unknown) Vital signs are stable on repeat examination is (unknown) (no (unknown) (unknown) and cooperative (units (unknown) date) unknown) (unknown) (no (unknown) (unknown) apply to single (units (unknown) date) elbow, wrist or unknown) hand; for hand includes palm/fingers/back of (unknown) (no (unknown) (unknown) are palpable, 1+, (units (unknown) date) with a brisk cap unknown) refill. He has mild dependent edema at (unknown) (no (unknown) (unknown) baseline and (units (u nknown) date) wears a brief. unknown) (unknown) (no (unknown) (unknown) be given as this (units (unknown) date) will be an unknown) increase in his fall risk.? Patient denies any (unknown) (no (unknown) (unknown) concerns answered (units (unknown) date) at this time. unknown) (unknown) (no (unknown) (unknown) diclofenac sodium (units (unknown) date) 1 % topical gel 2 unknown) g topical QID PRN shoulder pain 06/21/21 (unknown) (no (unknown) (unknown) diclofenac sodium (units (unknown) date) [Voltaren unknown) Arthritis Pain] 1 % gel (unknown) (no (unknown) (unknown) diclofenac (units (unk nown) date) topical gel and unknown) lidocaine patches.? Patient is appropriate and (unknown) (no (unknown) (unknown) emergency (units (unkn own) date) department via unknown) after a mechanical fall when he tripped with his right (unknown) (no (unknown) (unknown) foot taking a (units ( unknown) date) step up 2 steps unknown) falling down onto his left side hurting his left (unknown) (no (unknown) (unknown) hand (units (unkno wn) date) unknown) (unknown) (no (unknown) (unknown) has a history of (units (unknown) date) Parkinson's unknown) disease and presents to the emergency department (unknown) (no (unknown) (unknown) he has not tried (units (unknown) date) walking since his unknown) injury. (unknown) (no (unknown) (unknown) headache, nausea, (units (unknown) date) vomiting, neck unknown) pain or other injury.and presents to the (unknown) (no (unknown) (unknown) hip and his left (units (unknown) date) elbow. He denies unknown) taking any anticoagulants, states the pain on (unknown) (no (unknown) (unknown) his left hip is (units (unknown) date) on the lateral unknown) aspect and slightly lower down in his mid thigh. (unknown) (no (unknown) (unknown) improvement in (units (unknown) date) his pain.? He was unknown) instructed to follow-up with his primary care (unknown) (no (unknown) (unknown) issues due to his (units (unknown) date) Parkinson's and unknown) his requests no mind-altering medications (unknown) (no (unknown) (unknown) leave on most (units ( unknown) date) painful area for unknown) up to 12 hrs (unknown) (no (unknown) (unknown) lidocaine 5 % (units ( unknown) date) adhesive unknown) patch,medicated (unknown) (no (unknown) (unknown) lidocaine 5 % (units ( unknown) date) topical patch 1 unknown) patch topical DAILY PRN shoulder 06/21/21 (unknown) (no (unknown) (unknown) loss of (units (unkno wn) date) consciousness, unknown) denies any numbness or tingling or sensation changes. Is (unknown) (no (unknown) (unknown) over pelvis (units (un known) date) anterior and unknown) pressure tenderness over the lateral mid left upper (unknown) (no (unknown) (unknown) pain #15 ea (units (un known) date) unknown) (unknown) (no (unknown) (unknown) palpated, denies (units (unknown) date) any incontinence unknown) or head injury when this happened. Denies any (unknown) (no (unknown) (unknown) patient able to (units (unknown) date) flex his left hip unknown) to 90? without significant pain, no tenderness (unknown) (no (unknown) (unknown) provider if he (units (unknown) date) has ongoing pain unknown) beyond 1 week.? We given a prescription for (unknown) (no (unknown) (unknown) strict return to (units (unknown) date) ER precautions for unknown) any new or worsening symptoms.? Patient (unknown) (no (unknown) (unknown) taken any pain (units (unknown) date) medication today. unknown) Patient uses a walker to ambulate at baseline, (unknown) (no (unknown) (unknown) tamsulosin 0.4 mg (units (unknown) date) capsule (Flomax) unknown) 0.4 mg PO DAILY #10 caps 02/06/20 (unknown) (no (unknown) (unknown) tamsulosin (units (unk nown) date) [Flomax] 0.4 mg unknown) capsule (unknown) (no (unknown) (unknown) tenderness or (units ( unknown) date) exquisite unknown) tenderness with exam. (unknown) (no (unknown) (unknown) thigh with no (units ( unknown) date) obvious deformity unknown) or ecchymosis. Patient's left DP and PT pulses (unknown) (no (unknown) (unknown) today after a (units ( unknown) date) ground level unknown) fall.? Patient has generalized weakness and balance (unknown) (no (unknown) (unknown) understands to (units (unknown) date) follow up closely unknown) with outpatient providers as instructed.? (unknown) (no (unknown) (unknown) unremarkable.? (units (unknown) date) Patient has been unknown) informed of results.? Patient has been given (unknown) (no (unknown) (unknown) wheezing, (units (unkn own) date) stridor, or unknown) abnormal breath sounds. No retractions or tachypnea. Result panel 5 (unknown) (no (unknown) (unknown) (no value) (units (unk nown) date) unknown) (unknown) (no (unknown) (unknown) #22 grams (units (unkn own) date) unknown) (unknown) (no (unknown) (unknown) <Electronically (units (unknown) date) signed by Vanesa unknown) Paula [facility]> (unknown) (no (unknown) (unknown) (Lidoderm) (units (unk nown) date) unknown) (unknown) (no (unknown) (unknown) (Voltaren (units (unkn own) date) Arthritis Pain) unknown) #100 grams (unknown) (no (unknown) (unknown) *If you do not (units (unknown) date) have a primary unknown) care provider please contact [phone] to (unknown) (no (unknown) (unknown) *Please continue (units (unknown) date) to take your unknown) regular medications as directed. (unknown) (no (unknown) (unknown) *Please follow up (units (unknown) date) with your primary unknown) care provider in 2-3 days, call for an (unknown) (no (unknown) (unknown) *Return to (units (unk nown) date) Emergency unknown) Department if you should have any new, worsening, or (unknown) (no (unknown) (unknown) *What to do: (units (u nknown) date) unknown) (unknown) (no (unknown) (unknown) *You have been (units ( unknown) date) diagnosed with a unknown) fall due to tripping, left upper leg pain with a (unknown) (no (unknown) (unknown) 0.4 mg PO DAILY (units (unknown) date) Qty: 10 0RF unknown) (unknown) (no (unknown) (unknown) 0.5 tab PO (units (unk nown) date) BEDTIME PRN unknown) (Reason: pain) Qty: 10 0RF (unknown) (no (unknown) (unknown) 11/27/21 13:17 (units (unknown) date) unknown) (unknown) (no (unknown) (unknown) 11/27/21 1534 (units ( unknown) date) unknown) (unknown) (no (unknown) (unknown) 11/27/21 (units (unkno wn) date) unknown) (unknown) (no (unknown) (unknown) 1 applic topical (units (unknown) date) BID Qty: 22 0RF unknown) (unknown) (no (unknown) (unknown) 1 patch topical (units (unknown) date) DAILY PRN (Reason: unknown) shoulder pain) Qty: 15 0RF (unknown) (no (unknown) (unknown) 1 patch topical (units (unknown) date) DAILY Qty: 15 0RF unknown) (unknown) (no (unknown) (unknown) 13:01 11/27/21 (units (unknown) date) unknown) (unknown) (no (unknown) (unknown) 14:31 11/27/21 (units (unknown) date) unknown) (unknown) (no (unknown) (unknown) 15:17 (units (unkno wn) date) unknown) (unknown) (no (unknown) (unknown) 2 g topical QID (units (unknown) date) PRN (Reason: unknown) shoulder pain) Qty: 100 0RF (unknown) (no (unknown) (unknown) 592 (units (unkno wn) date) unknown) (unknown) (no (unknown) (unknown) 6-8 hours as (units (u nknown) date) needed if you do unknown) not have any imbalance, sedation, or altered (unknown) (no (unknown) (unknown) ? (units (unkno wn) date) unknown) (unknown) (no (unknown) (unknown) Acetaminophen (units ( unknown) date) (Acetaminophen 325 unknown) Mg Tablet) 650 mg PO NOW ONE (unknown) (no (unknown) (unknown) Activity (units (unkno wn) date) Restrictions/Addit unknown) ional Instructions: (unknown) (no (unknown) (unknown) Age/Sex: 86 / M (units (unknown) date) unknown) (unknown) (no (unknown) (unknown) Allergies (units (unkn own) date) unknown) (unknown) (no (unknown) (unknown) Allergy/AdvReac (units (unknown) date) Type Severity unknown) Reaction Status Date / Time (unknown) (no (unknown) (unknown) Approved by: (units (u nknown) date) carlos Tamez M.D. on 11/27/2021 at 14:39 ? (unknown) (no (unknown) (unknown) Approved by: (units (u nknown) date) Jeremiah [place] M.D. unknown) on 11/27/2021 at 14:17 ? (unknown) (no (unknown) (unknown) Blood Pressure (units (unknown) date) 125/84 11/27/21 unknown) 13:01 (unknown) (no (unknown) (unknown) Blood Pressure (units (unknown) date) 125/84 172/84 H unknown) 142/78 H (unknown) (no (unknown) (unknown) Bones:? No (units (unk nown) date) fractures or unknown) dislocations.? No suspicious bony lesions.? (unknown) (no (unknown) (unknown) Bones:? No (units (unk nown) date) fractures or unknown) dislocations.? Pelvic ring appears intact.? No (unknown) (no (unknown) (unknown) COMPARISON:? (units (u nknown) date) None. unknown) (unknown) (no (unknown) (unknown) Cardiovascular: (units (unknown) date) regular rate and unknown) rhythm, no peripheral edema, warm extremities (unknown) (no (unknown) (unknown) Chief Complaint: (units (unknown) date) Fall unknown) (unknown) (no (unknown) (unknown) Clinical (units (unkno wn) date) Impression: unknown) (unknown) (no (unknown) (unknown) Course (units (unkno wn) date) unknown) (unknown) (no (unknown) (unknown) : 1935 (units (unknown) date) Acct:[id number] unknown) (unknown) (no (unknown) (unknown) Date of Service: (units (unknown) date) 11/27/21 unknown) (unknown) (no (unknown) (unknown) Departure (units (unkn own) date) unknown) (unknown) (no (unknown) (unknown) Dictated by: (units (u nknown) date) carlos Tamez M.D. on 11/27/2021 at 14:38 ? ? (unknown) (no (unknown) (unknown) Dictated by: (units (u nknown) date) Jeremiah [place] M.D. unknown) on 11/27/2021 at 14:16 ? ? (unknown) (no (unknown) (unknown) Discharge Plan (units (unknown) date) unknown) (unknown) (no (unknown) (unknown) Discontinued (units (u nknown) date) Medications unknown) (unknown) (no (unknown) (unknown) Documented By: JG (units (unknown) date) unknown) (unknown) (no (unknown) (unknown) ED Orders (units (unkn own) date) unknown) (unknown) (no (unknown) (unknown) ER Physician: (units ( unknown) date) Vanesa Smith unknown) [employer] (unknown) (no (unknown) (unknown) Emergency Report (units (unknown) date) unknown) (unknown) (no (unknown) (unknown) Exam Narrative: (units (unknown) date) unknown) (unknown) (no (unknown) (unknown) Exam (units (unkno wn) date) unknown) (unknown) (no (unknown) (unknown) Extremity x-ray (units (unknown) date) #1: unknown) (unknown) (no (unknown) (unknown) Extremity x-ray (units (unknown) date) #2: unknown) (unknown) (no (unknown) (unknown) FINDINGS:? (units (unk nown) date) unknown) (unknown) (no (unknown) (unknown) Fall, Contusion (units (unknown) date) of left leg, Wound unknown) of sacral region, Elbow injury, History of (unknown) (no (unknown) (unknown) GI: abdomen soft, (units (unknown) date) nontender to unknown) palpation, nondistended, without masses, rebound (unknown) (no (unknown) (unknown) General (units (unkno wn) date) unknown) (unknown) (no (unknown) (unknown) General: (units (unkno wn) date) cooperative, unknown) comfortable, in no acute distress, well groomed (unknown) (no (unknown) (unknown) Glucose POC 159 (units (unknown) date) unknown) (unknown) (no (unknown) (unknown) HEENT: (units (unkno wn) date) symmetrical facial unknown) expressions, moist mucous membranes (unknown) (no (unknown) (unknown) HPI - Fall (units (unk nown) date) unknown) (unknown) (no (unknown) (unknown) HPI Narrative: (units (unknown) date) unknown) (unknown) (no (unknown) (unknown) HPI (units (unkno wn) date) unknown) (unknown) (no (unknown) (unknown) He can flex his (units (unknown) date) hip without unknown) significant pain, denies pain in his pelvis when (unknown) (no (unknown) (unknown) History of (units (unk nown) date) Present Illness unknown) (unknown) (no (unknown) (unknown) Hydrocodone (units (un known) date) Bitart/Acetaminoph unknown) en (Hydrocodone/Acet 5/325 Tablet) 0.5 tab PO NOW (unknown) (no (unknown) (unknown) IMPRESSION:? No (units (unknown) date) acute abnormality unknown) of the left elbow (unknown) (no (unknown) (unknown) IMPRESSION:? (units (u nknown) date) unknown) (unknown) (no (unknown) (unknown) INDICATIONS:? GLF (units (unknown) date) unknown) (unknown) (no (unknown) (unknown) If concern for (units (unknown) date) occult fracture unknown) consider CT bony pelvis. (unknown) (no (unknown) (unknown) Imaging Data (units (u nknown) date) unknown) (unknown) (no (unknown) (unknown) Initial Vital (units ( unknown) date) Signs unknown) (unknown) (no (unknown) (unknown) Initial Vital (units ( unknown) date) Signs: unknown) (unknown) (no (unknown) (unknown) Instructions: How (units (unknown) date) to Prevent Falls, unknown) DI for Shoulder Pain (unknown) (no (unknown) (unknown) [facility] (units (unknown) date) [address] [place] [address] unknown) [place] [address] (unknown) (no (unknown) (unknown) Lab Data (units (unkno wn) date) unknown) (unknown) (no (unknown) (unknown) Labs: (units (unkno wn) date) unknown) (unknown) (no (unknown) (unknown) Last Admin: (units (un known) date) 11/27/21 14:08 unknown) Dose: 650 mg (unknown) (no (unknown) (unknown) Last Admin: (units (un known) date) 11/27/21 14:09 unknown) Dose: 1 each (unknown) (no (unknown) (unknown) Last Admin: (units (un known) date) 11/27/21 14:57 unknown) Dose: 0.5 tab (unknown) (no (unknown) (unknown) Lidocaine (units (unkn own) date) (Lidocaine Patch 1 unknown) Each Adh..Patch) 1 each TOP NOW ONE (unknown) (no (unknown) (unknown) Lidocaine (Remove (units (unknown) date) Lidocaine Patch) 1 unknown) each TOP BEDTIME CHARISSA (unknown) (no (unknown) (unknown) MDM - Fall (units (unk nown) date) unknown) (unknown) (no (unknown) (unknown) MDM Narrative (units ( unknown) date) unknown) (unknown) (no (unknown) (unknown) MSK: moves all (units (unknown) date) extremities, unknown) neurovascularly intact, no weakness, normal tone (unknown) (no (unknown) (unknown) Medical decision (units (unknown) date) making narrative: unknown) (unknown) (no (unknown) (unknown) Medication (units (unk nown) date) Instructions unknown) Recorded (unknown) (no (unknown) (unknown) Mode of arrival: (units (unknown) date) EMS unknown) (unknown) (no (unknown) (unknown) Narrative (units (unkn own) date) unknown) (unknown) (no (unknown) (unknown) Narrative: (units (unk nown) date) unknown) (unknown) (no (unknown) (unknown) Neuro: normal (units ( unknown) date) speech and unknown) cognition, A+O x3, ambulatory, clear speech (unknown) (no (unknown) (unknown) New (units (unkno wn) date) unknown) (unknown) (no (unknown) (unknown) No Action (units (unkn own) date) unknown) (unknown) (no (unknown) (unknown) No Known Drug (units ( unknown) date) Allergies Allergy unknown) Verified 06/21/21 13:52 (unknown) (no (unknown) (unknown) No fracture (units (un known) date) identified. unknown) (unknown) (no (unknown) (unknown) ONE (units (unkno wn) date) unknown) (unknown) (no (unknown) (unknown) Ordered: (units (unkno wn) date) unknown) (unknown) (no (unknown) (unknown) Orders (units (unkno wn) date) unknown) (unknown) (no (unknown) (unknown) Oxygen Delivery (units (unknown) date) Method 11/27/21 unknown) 13:01 (unknown) (no (unknown) (unknown) Oxygen Delivery (units (unknown) date) Method Room Air unknown) Room Air Room Air (unknown) (no (unknown) (unknown) PROCEDURE:? XR (units (unknown) date) ELBOW LT MIN 3V unknown) (unknown) (no (unknown) (unknown) PROCEDURE:? XR (units (unknown) date) HIP W PEL IF DONE unknown) LT 2V (unknown) (no (unknown) (unknown) Parkinson's (units (un known) date) disease, unknown) Degenerative arthritis of hip (unknown) (no (unknown) (unknown) Patient (units (unkno wn) date) Disposition: Home unknown) (unknown) (no (unknown) (unknown) Patient History (units (unknown) date) unknown) (unknown) (no (unknown) (unknown) Patient has a (units ( unknown) date) history of unknown) Parkinson's disease, he is ambulatory and has a steady (unknown) (no (unknown) (unknown) Patient: (units (unkno wn) date) Isaac Jackson MR#: unknown) [id number] (unknown) (no (unknown) (unknown) Please follow-up (units (unknown) date) with your regular unknown) doctor if you are having any changes or (unknown) (no (unknown) (unknown) Point of Care (units ( unknown) date) Testing unknown) (unknown) (no (unknown) (unknown) Prescriptions: (units (unknown) date) unknown) (unknown) (no (unknown) (unknown) Previous Rx's (units ( unknown) date) unknown) (unknown) (no (unknown) (unknown) Psych: mental (units ( unknown) date) status is grossly unknown) normal, congruent mood, normal affect, pleasant (unknown) (no (unknown) (unknown) Pulse Oximetry 98 (units (unknown) date) 11/27/21 13:01 unknown) (unknown) (no (unknown) (unknown) Pulse Oximetry 98 (units (unknown) date) 97 97 unknown) (unknown) (no (unknown) (unknown) Pulse Rate 64 (units ( unknown) date) 11/27/21 13:01 unknown) (unknown) (no (unknown) (unknown) Pulse Rate 64 63 (units (unknown) date) 80 unknown) (unknown) (no (unknown) (unknown) Radiologist's (units ( unknown) date) Impression: unknown) (unknown) (no (unknown) (unknown) Recommend patient (units (unknown) date) follow-up with her unknown) primary care provider if his pain is (unknown) (no (unknown) (unknown) Referrals: (units (unk nown) date) unknown) (unknown) (no (unknown) (unknown) Related Data (units (u nknown) date) unknown) (unknown) (no (unknown) (unknown) Respiratory Rate (units (unknown) date) 18 11/27/21 13:01 unknown) (unknown) (no (unknown) (unknown) Respiratory Rate (units (unknown) date) 18 16 18 unknown) (unknown) (no (unknown) (unknown) Respiratory: (units (u nknown) date) normal effort, unknown) able to speak in complete sentences, without (unknown) (no (unknown) (unknown) Review of Systems (units (unknown) date) unknown) (unknown) (no (unknown) (unknown) Review of systems (units (unknown) date) is negative for unknown) acute abnormalities unless otherwise noted in (unknown) (no (unknown) (unknown) Reviewed vitals (units (unknown) date) signs and nursing unknown) notes. (unknown) (no (unknown) (unknown) Rx Instructions: (units (unknown) date) unknown) (unknown) (no (unknown) (unknown) Signed By: (units (unk nown) date) unknown) (unknown) (no (unknown) (unknown) Skin: brisk (units (un known) date) capillary refill, unknown) without pallor or erythema (unknown) (no (unknown) (unknown) Smoking Status: (units (unknown) date) Never smoker unknown) (unknown) (no (unknown) (unknown) Social History (units (unknown) date) (Reviewed 11/27/21 unknown) @ 13:38 by Vanesa Smith [facility]) (unknown) (no (unknown) (unknown) Soft tissues:? No (units (unknown) date) elbow joint unknown) effusion.? No suspicious soft tissue (unknown) (no (unknown) (unknown) Soft tissues:? (units (unknown) date) The visualized unknown) bowel gas pattern is normal.? No suspicious soft (unknown) (no (unknown) (unknown) Source: patient (units (unknown) date) and EMS unknown) (unknown) (no (unknown) (unknown) Stated Complaint: (units (unknown) date) GLF unknown) (unknown) (no (unknown) (unknown) Stop: 11/27/21 (units (unknown) date) 13:28 unknown) (unknown) (no (unknown) (unknown) Stop: 11/27/21 (units (unknown) date) 14:38 unknown) (unknown) (no (unknown) (unknown) Substance Use (units ( unknown) date) Type: does not use unknown) (unknown) (no (unknown) (unknown) TECHNIQUE:? 3 (units ( unknown) date) views of the elbow unknown) were acquired.? (unknown) (no (unknown) (unknown) TECHNIQUE:? AP (units (unknown) date) pelvis with unknown) lateral view(s) of the left hip(s).? (unknown) (no (unknown) (unknown) Temperature 98.3 (units (unknown) date) F 11/27/21 13:01 unknown) (unknown) (no (unknown) (unknown) Temperature 98.3 (units (unknown) date) F unknown) (unknown) (no (unknown) (unknown) This is a (units (unkn own) date) 86-year-old male unknown) who presents to the emergency department after he (unknown) (no (unknown) (unknown) This is an (units (unk nown) date) 86-year-old male unknown) who lives at home in [place] with his , who (unknown) (no (unknown) (unknown) Time Seen by (units (u nknown) date) Provider: 11/27/21 unknown) 13:22 (unknown) (no (unknown) (unknown) Visit Report (units (u nknown) date) Forms: Patient unknown) Portal/API (unknown) (no (unknown) (unknown) Vital Signs - 8 (units (unknown) date) hr unknown) (unknown) (no (unknown) (unknown) Vital Signs (units (un known) date) unknown) (unknown) (no (unknown) (unknown) Vital signs: (units (u nknown) date) unknown) (unknown) (no (unknown) (unknown) X-ray of his left (units (unknown) date) elbow did not show unknown) any acute abnormalities, x-ray of his left (unknown) (no (unknown) (unknown) XR elbow LT min (units (unknown) date) 3V Stat unknown) (unknown) (no (unknown) (unknown) XR hip w pel if (units (unknown) date) done LT 2V Stat unknown) (unknown) (no (unknown) (unknown) Jennifer Bernal, (units (unknown) date) PA-C [Primary Care unknown) Provider] (unknown) (no (unknown) (unknown) [ X] New (units (unkno wn) date) medication unknown) prescriptions sent to your pharmacy: [ DOD] (unknown) (no (unknown) (unknown) [ ] New (units (unkno wn) date) medication written unknown) as a paper prescription (unknown) (no (unknown) (unknown) [ ] No new (units (unk nown) date) medications given unknown) (unknown) (no (unknown) (unknown) a 3 after Tylenol (units (unknown) date) and lidocaine. He unknown) was given half a tab of hydrocodone and (unknown) (no (unknown) (unknown) able to flex and (units (unknown) date) extend his elbow unknown) but complains of left elbow pain. Has not (unknown) (no (unknown) (unknown) agrees to (units (unkn own) date) discharge home.? unknown) All questions and concerns answered at this time. (unknown) (no (unknown) (unknown) alcohol intake (units (unknown) date) frequency: unknown) holidays/special occasions only (unknown) (no (unknown) (unknown) and cooperative (units (unknown) date) unknown) (unknown) (no (unknown) (unknown) and left shoulder (units (unknown) date) pain where his unknown) rotator cuff pain is. He was given Tylenol, (unknown) (no (unknown) (unknown) apply to single (units (unknown) date) elbow, wrist or unknown) hand; for hand includes palm/fingers/back of (unknown) (no (unknown) (unknown) appointment. Let (units (unknown) date) them know you were unknown) seen in the Emergency Department and that we (unknown) (no (unknown) (unknown) are palpable, 1+, (units (unknown) date) with a brisk cap unknown) refill. He has mild dependent edema at (unknown) (no (unknown) (unknown) asked that you be (units (unknown) date) seen for unknown) follow-up. We will electronically transmit a record (unknown) (no (unknown) (unknown) baseline and (units (u nknown) date) wears a brief. unknown) (unknown) (no (unknown) (unknown) be given as this (units (unknown) date) will be an unknown) increase in his fall risk.? Patient denies any (unknown) (no (unknown) (unknown) before bed and (units (unknown) date) start only with a unknown) half of a tab. (unknown) (no (unknown) (unknown) calcifications.? (units (unknown) date) unknown) (unknown) (no (unknown) (unknown) closely with (units (u nknown) date) outpatient unknown) providers as instructed.? Patient understands plan and (unknown) (no (unknown) (unknown) concerning (units (unk nown) date) symptoms, such as unknown) [fever greater than 101F, chills, worsening pain, (unknown) (no (unknown) (unknown) contusion and a (units (unknown) date) left elbow injury unknown) without fracture. Please use Tylenol 650 mg (unknown) (no (unknown) (unknown) degenerative (units (u nknown) date) joint disease. unknown) Patient states that he feels better and his pain as (unknown) (no (unknown) (unknown) diclofenac sodium (units (unknown) date) 1 % topical gel 2 unknown) g topical QID PRN shoulder pain 06/21/21 (unknown) (no (unknown) (unknown) diclofenac sodium (units (unknown) date) [Voltaren unknown) Arthritis Pain] 1 % gel (unknown) (no (unknown) (unknown) difficulty. (units (un known) date) Patient walks with unknown) a walker at baseline and use this for transfer. (unknown) (no (unknown) (unknown) discussed at (units (u nknown) date) length with unknown) patient, his , when to take it and how to avoid (unknown) (no (unknown) (unknown) emergency (units (unkn own) date) department via unknown) after a mechanical fall when he tripped with his right (unknown) (no (unknown) (unknown) establish care (units (unknown) date) with one of the unknown) [facility] primary care providers. (unknown) (no (unknown) (unknown) every 6 hours as (units (unknown) date) needed for pain, unknown) stay hydrated remember to eat food when taking (unknown) (no (unknown) (unknown) foot taking a (units ( unknown) date) step up 2 steps unknown) falling down onto his left side hurting his left (unknown) (no (unknown) (unknown) gait when he got (units (unknown) date) up from sitting to unknown) standing tolerated bearing weight without (unknown) (no (unknown) (unknown) gel and lidocaine (units (unknown) date) patches.? Patient unknown) is appropriate and amenable to discharge (unknown) (no (unknown) (unknown) hand (units (unkno wn) date) unknown) (unknown) (no (unknown) (unknown) has a history of (units (unknown) date) Parkinson's unknown) disease and presents to the emergency department (unknown) (no (unknown) (unknown) has been informed (units (unknown) date) of results.? unknown) Patient has been given strict return to ER (unknown) (no (unknown) (unknown) has ongoing pain (units (unknown) date) beyond 1 week.? We unknown) given a prescription for diclofenac topical (unknown) (no (unknown) (unknown) he has not tried (units (unknown) date) walking since his unknown) injury. (unknown) (no (unknown) (unknown) headache, nausea, (units (unknown) date) vomiting, neck unknown) pain or other injury.and presents to the (unknown) (no (unknown) (unknown) hip and his left (units (unknown) date) elbow. He denies unknown) taking any anticoagulants, states the pain on (unknown) (no (unknown) (unknown) hip and pelvis do (units (unknown) date) not show any unknown) fractures either but show moderate bilateral hip (unknown) (no (unknown) (unknown) his left hip is (units (unknown) date) on the lateral unknown) aspect and slightly lower down in his mid thigh. (unknown) (no (unknown) (unknown) home.? Vital (units (u nknown) date) signs are stable unknown) on repeat examination is unremarkable.? Patient (unknown) (no (unknown) (unknown) hydrocodone 5 (units ( unknown) date) mg-acetaminophen unknown) 325 0.5 tab PO BEDTIME PRN pain #10 11/27/21 (unknown) (no (unknown) (unknown) hydrocodone-aceta (units (unknown) date) minophen 5-325 mg unknown) tablet (unknown) (no (unknown) (unknown) issues due to his (units (unknown) date) Parkinson's and unknown) his requests no mind-altering medications (unknown) (no (unknown) (unknown) leave on most (units ( unknown) date) painful area for unknown) up to 12 hrs (unknown) (no (unknown) (unknown) lesions.? (units (unkn own) date) Moderate bilateral unknown) hip DJD.? (unknown) (no (unknown) (unknown) lidocaine 5 % (units ( unknown) date) adhesive unknown) patch,medicated (unknown) (no (unknown) (unknown) lidocaine 5 % (units ( unknown) date) topical patch 1 unknown) patch topical DAILY #15 ea 11/27/21 (unknown) (no (unknown) (unknown) lidocaine 5 % (units ( unknown) date) topical patch 1 unknown) patch topical DAILY PRN shoulder 06/21/21 (unknown) (no (unknown) (unknown) lidocaine (units (unkn own) date) [Lidoderm] 5 % unknown) adhesive patch,medicated (unknown) (no (unknown) (unknown) lidocaine patch (units (unknown) date) in the emergency unknown) department with some improvement in his pain.? (unknown) (no (unknown) (unknown) loss of (units (unkno wn) date) consciousness, unknown) denies any numbness or tingling or sensation changes. Is (unknown) (no (unknown) (unknown) medication needs. (units (unknown) date) unknown) (unknown) (no (unknown) (unknown) medications. Keep (units (unknown) date) an assistive unknown) walking device with you at all times and try to (unknown) (no (unknown) (unknown) mentation which (units (unknown) date) could cause you to unknown) fall. Please take this only as you need to (unknown) (no (unknown) (unknown) mg tablet tabs (units (unknown) date) unknown) (unknown) (no (unknown) (unknown) mupirocin 2 % (units ( unknown) date) ointment unknown) (unknown) (no (unknown) (unknown) mupirocin 2 % (units ( unknown) date) topical ointment 1 unknown) applic topical BID sacral wound 11/27/21 (unknown) (no (unknown) (unknown) of today's note (units (unknown) date) if your PCP is in unknown) our system (unknown) (no (unknown) (unknown) ongoing, (units (unkno wn) date) discussed taking unknown) half a tab of hydrocodone as needed for breakthrough (unknown) (no (unknown) (unknown) over pelvis (units (un known) date) anterior and unknown) pressure tenderness over the lateral mid left upper (unknown) (no (unknown) (unknown) pain #15 ea (units (un known) date) unknown) (unknown) (no (unknown) (unknown) pain if (units (unkno wn) date) difficulty unknown) sleeping. His will encourage hydration and meals, they (unknown) (no (unknown) (unknown) palpated, denies (units (unknown) date) any incontinence unknown) or head injury when this happened. Denies any (unknown) (no (unknown) (unknown) patient able to (units (unknown) date) flex his left hip unknown) to 90? without significant pain, no tenderness (unknown) (no (unknown) (unknown) persistent (units (unk nown) date) vomiting or other unknown) bothersome symptoms]. (unknown) (no (unknown) (unknown) precautions for (units (unknown) date) any new or unknown) worsening symptoms.? Patient understands to follow up (unknown) (no (unknown) (unknown) prevent falls (units ( unknown) date) with all of your unknown) energy. You can take half of a pain pill every (unknown) (no (unknown) (unknown) suspicious bony (units (unknown) date) unknown) (unknown) (no (unknown) (unknown) symptoms. He was (units (unknown) date) instructed to unknown) follow-up with his primary care provider if he (unknown) (no (unknown) (unknown) taken any pain (units (unknown) date) medication today. unknown) Patient uses a walker to ambulate at baseline, (unknown) (no (unknown) (unknown) tamsulosin 0.4 mg (units (unknown) date) capsule (Flomax) unknown) 0.4 mg PO DAILY #10 caps 02/06/20 (unknown) (no (unknown) (unknown) tamsulosin (units (unk nown) date) [Flomax] 0.4 mg unknown) capsule (unknown) (no (unknown) (unknown) tenderness or (units ( unknown) date) exquisite unknown) tenderness with exam. (unknown) (no (unknown) (unknown) thigh with no (units ( unknown) date) obvious deformity unknown) or ecchymosis. Patient's left DP and PT pulses (unknown) (no (unknown) (unknown) tissue (units (unkno wn) date) unknown) (unknown) (no (unknown) (unknown) today after a (units ( unknown) date) ground level unknown) fall.? Patient has generalized weakness and balance (unknown) (no (unknown) (unknown) tripped and had a (units (unknown) date) mechanical fall unknown) complaining lateral left hip pain, left elbow, (unknown) (no (unknown) (unknown) understand to (units ( unknown) date) come back to the unknown) emergency department for any new or worsening (unknown) (no (unknown) (unknown) walking around (units (unknown) date) after taking any unknown) medication that might alter his balance. (unknown) (no (unknown) (unknown) wheezing, (units (unkn own) date) stridor, or unknown) abnormal breath sounds. No retractions or tachypnea. Result panel 6 (unknown) (no (unknown) (unknown) (no value) (units (unk nown) date) unknown) (unknown) (no (unknown) (unknown) #22 grams (units (unkn own) date) unknown) (unknown) (no (unknown) (unknown) <Electronically (units (unknown) date) signed by Vanesa TONY Crecintia> (unknown) (no (unknown) (unknown) <Electronically (units (unknown) date) signed by Octavio unknown) MD Edward> (unknown) (no (unknown) (unknown) <Vanesa Smith, (units (unknown) date) CHAVO - Last Filed: unknown) 11/27/21 15:34> (unknown) (no (unknown) (unknown) <Octavio Leon (units (unknown) date) - Last Filed: unknown) 12/04/21 07:36> (unknown) (no (unknown) (unknown) (Lidoderm) (units (unk nown) date) unknown) (unknown) (no (unknown) (unknown) (Voltaren (units (unkn own) date) Arthritis Pain) unknown) #100 grams (unknown) (no (unknown) (unknown) *If you do not (units (unknown) date) have a primary unknown) care provider please contact [phone] to (unknown) (no (unknown) (unknown) *Please continue (units (unknown) date) to take your unknown) regular medications as directed. (unknown) (no (unknown) (unknown) *Please follow up (units (unknown) date) with your primary unknown) care provider in 2-3 days, call for an (unknown) (no (unknown) (unknown) *Return to (units (unk nown) date) Emergency unknown) Department if you should have any new, worsening, or (unknown) (no (unknown) (unknown) *What to do: (units (u nknown) date) unknown) (unknown) (no (unknown) (unknown) *You have been (units ( unknown) date) diagnosed with a unknown) fall due to tripping, left upper leg pain with a (unknown) (no (unknown) (unknown) - Unspecified (units ( unknown) date) injury of left unknown) elbow, initial encounter (unknown) (no (unknown) (unknown) 0.4 mg PO DAILY (units (unknown) date) Qty: 10 0RF unknown) (unknown) (no (unknown) (unknown) 0.5 tab PO (units (unk nown) date) BEDTIME PRN unknown) (Reason: pain) Qty: 10 0RF (unknown) (no (unknown) (unknown) 11/27/21 1534 (units ( unknown) date) unknown) (unknown) (no (unknown) (unknown) 11/27/21 (units (unkno wn) date) unknown) (unknown) (no (unknown) (unknown) 12/04/21 0736 (units ( unknown) date) unknown) (unknown) (no (unknown) (unknown) 1 applic topical (units (unknown) date) BID Qty: 22 0RF unknown) (unknown) (no (unknown) (unknown) 1 patch topical (units (unknown) date) DAILY PRN (Reason: unknown) shoulder pain) Qty: 15 0RF (unknown) (no (unknown) (unknown) 1 patch topical (units (unknown) date) DAILY Qty: 15 0RF unknown) (unknown) (no (unknown) (unknown) 13:01 11/27/21 (units (unknown) date) unknown) (unknown) (no (unknown) (unknown) 14:31 11/27/21 (units (unknown) date) unknown) (unknown) (no (unknown) (unknown) 15:17 (units (unkno wn) date) unknown) (unknown) (no (unknown) (unknown) 2 g topical QID (units (unknown) date) PRN (Reason: unknown) shoulder pain) Qty: 100 0RF (unknown) (no (unknown) (unknown) 592 (units (unkno wn) date) unknown) (unknown) (no (unknown) (unknown) 6-8 hours as (units (u nknown) date) needed if you do unknown) not have any imbalance, sedation, or altered (unknown) (no (unknown) (unknown) ? (units (unkno wn) date) unknown) (unknown) (no (unknown) (unknown) Acetaminophen (units ( unknown) date) (Acetaminophen 325 unknown) Mg Tablet) 650 mg PO NOW ONE (unknown) (no (unknown) (unknown) Activity (units (unkno wn) date) Restrictions/Addit unknown) ional Instructions: (unknown) (no (unknown) (unknown) Age/Sex: 86 / M (units (unknown) date) unknown) (unknown) (no (unknown) (unknown) Allergies (units (unkn own) date) unknown) (unknown) (no (unknown) (unknown) Allergy/AdvReac (units (unknown) date) Type Severity unknown) Reaction Status Date / Time (unknown) (no (unknown) (unknown) Approved by: (units (u nknown) date) carlos Tamez M.D. on 11/27/2021 at 14:39 ? (unknown) (no (unknown) (unknown) Approved by: (units (u nknown) date) Jeremiah Milton M.D. unknown) on 11/27/2021 at 14:17 ? 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 No (units (unk nown) date) fractures or unknown) dislocations.? No suspicious bony lesions.? (unknown) (no (unknown) (unknown) Bones:? No (units (unk nown) date) fractures or unknown) dislocations.? Pelvic ring appears intact.? No (unknown) (no (unknown) (unknown) COMPARISON:? (units (u nknown) date) None. unknown) (unknown) (no (unknown) (unknown) Cardiovascular: (units (unknown) date) regular rate and unknown) rhythm, no peripheral edema, warm extremities (unknown) (no (unknown) (unknown) Chief Complaint: (units (unknown) date) Fall unknown) (unknown) (no (unknown) (unknown) Clinical (units (unkno wn) date) Impression: unknown) (unknown) (no (unknown) (unknown) Contusion of left (units (unknown) date) leg unknown) (unknown) (no (unknown) (unknown) Cosign (units (unkno wn) date) unknown) (unknown) (no (unknown) (unknown) Course (units (unkno wn) date) unknown) (unknown) (no (unknown) (unknown) : 1935 (units (unknown) date) Acct:[id number] unknown) (unknown) (no (unknown) (unknown) Date of Service: (units (unknown) date) 11/27/21 unknown) (unknown) (no (unknown) (unknown) Degenerative (units (u nknown) date) arthritis of hip unknown) (unknown) (no (unknown) (unknown) Departure (units (unkn own) date) unknown) (unknown) (no (unknown) (unknown) Dictated by: (units (u nknown) date) carlos Tamez M.D. on 11/27/2021 at 14:38 ? ? (unknown) (no (unknown) (unknown) Dictated by: (units (u nknown) date) Jeremiah Milton M.D. unknown) on 11/27/2021 at 14:16 ? ? (unknown) (no (unknown) (unknown) Discharge Plan (units (unknown) date) unknown) (unknown) (no (unknown) (unknown) Discontinued (units (u nknown) date) Medications unknown) (unknown) (no (unknown) (unknown) Documented By: JG (units (unknown) date) unknown) (unknown) (no (unknown) (unknown) ED Attending (units (u nknown) date) Cosignature unknown) Attestation: (unknown) (no (unknown) (unknown) ER Physician: (units ( unknown) date) HarshawVanesa unknown) [employer] (unknown) (no (unknown) (unknown) Elbow injury (units (u nknown) date) unknown) (unknown) (no (unknown) (unknown) Emergency Report (units (unknown) date) unknown) (unknown) (no (unknown) (unknown) Encounter type: (units (unknown) date) initial encounter unknown) Laterality: left Qualified Code(s): S59.902A (unknown) (no (unknown) (unknown) Encounter type: (units (unknown) date) initial encounter unknown) Qualified Code(s): S31.000A - Unspecified (unknown) (no (unknown) (unknown) Encounter type: (units (unknown) date) initial encounter unknown) Qualified Code(s): S80.12XA - Contusion of (unknown) (no (unknown) (unknown) Encounter type: (units (unknown) date) initial encounter unknown) Qualified Code(s): W19.XXXA - Unspecified (unknown) (no (unknown) (unknown) Exam Narrative: (units (unknown) date) unknown) (unknown) (no (unknown) (unknown) Exam (units (unkno wn) date) unknown) (unknown) (no (unknown) (unknown) Extremity x-ray (units (unknown) date) #1: unknown) (unknown) (no (unknown) (unknown) Extremity x-ray (units (unknown) date) #2: unknown) (unknown) (no (unknown) (unknown) FINDINGS:? (units (unk nown) date) unknown) (unknown) (no (unknown) (unknown) Fall (units (unkno wn) date) unknown) (unknown) (no (unknown) (unknown) GI: abdomen soft, (units (unknown) date) nontender to unknown) palpation, nondistended, without masses, rebound (unknown) (no (unknown) (unknown) General (units (unkno wn) date) unknown) (unknown) (no (unknown) (unknown) General: (units (unkno wn) date) cooperative, unknown) comfortable, in no acute distress, well groomed (unknown) (no (unknown) (unknown) Glucose POC 159 (units (unknown) date) unknown) (unknown) (no (unknown) (unknown) HEENT: (units (unkno wn) date) symmetrical facial unknown) expressions, moist mucous membranes (unknown) (no (unknown) (unknown) HPI - Fall (units (unk nown) date) unknown) (unknown) (no (unknown) (unknown) HPI Narrative: (units (unknown) date) unknown) (unknown) (no (unknown) (unknown) HPI (units (unkno wn) date) unknown) (unknown) (no (unknown) (unknown) He can flex his (units (unknown) date) hip without unknown) significant pain, denies pain in his pelvis when (unknown) (no (unknown) (unknown) History of (units (unk nown) date) Parkinson's unknown) disease (unknown) (no (unknown) (unknown) History of (units (unk nown) date) Present Illness unknown) (unknown) (no (unknown) (unknown) Hydrocodone (units (un known) date) Bitart/Acetaminoph unknown) en (Hydrocodone/Acet 5/325 Tablet) 0.5 tab PO NOW (unknown) (no (unknown) (unknown) I was immediately (units (unknown) date) available for unknown) consultation of this patient was seen and (unknown) (no (unknown) (unknown) IMPRESSION:? No (units (unknown) date) acute abnormality unknown) of the left elbow (unknown) (no (unknown) (unknown) IMPRESSION:? (units (u nknown) date) unknown) (unknown) (no (unknown) (unknown) INDICATIONS:? GLF (units (unknown) date) unknown) (unknown) (no (unknown) (unknown) If concern for (units (unknown) date) occult fracture unknown) consider CT bony pelvis. (unknown) (no (unknown) (unknown) Imaging Data (units (u nknown) date) unknown) (unknown) (no (unknown) (unknown) Initial Vital (units ( unknown) date) Signs unknown) (unknown) (no (unknown) (unknown) Initial Vital (units ( unknown) date) Signs: unknown) (unknown) (no (unknown) (unknown) Instructions: How (units (unknown) date) to Prevent Falls, unknown) DI for Shoulder Pain (unknown) (no (unknown) (unknown) [facility] (units (unknown) date) [address] unknown) [place] [address] (unknown) (no (unknown) (unknown) Lab Data (units (unkno wn) date) unknown) (unknown) (no (unknown) (unknown) Labs: (units (unkno wn) date) unknown) (unknown) (no (unknown) (unknown) Last Admin: (units (un known) date) 11/27/21 14:08 unknown) Dose: 650 mg (unknown) (no (unknown) (unknown) Last Admin: (units (un known) date) 11/27/21 14:09 unknown) Dose: 1 each (unknown) (no (unknown) (unknown) Last Admin: (units (un known) date) 11/27/21 14:57 unknown) Dose: 0.5 tab (unknown) (no (unknown) (unknown) Lidocaine (units (unkn own) date) (Lidocaine Patch 1 unknown) Each Adh..Patch) 1 each TOP NOW ONE (unknown) (no (unknown) (unknown) Lidocaine (Remove (units (unknown) date) Lidocaine Patch) 1 unknown) each TOP BEDTIME CHARISSA (unknown) (no (unknown) (unknown) MDM - Fall (units (unk nown) date) unknown) (unknown) (no (unknown) (unknown) MDM Narrative (units ( unknown) date) unknown) (unknown) (no (unknown) (unknown) MSK: moves all (units (unknown) date) extremities, unknown) neurovascularly intact, no weakness, normal tone (unknown) (no (unknown) (unknown) Medical decision (units (unknown) date) making narrative: unknown) (unknown) (no (unknown) (unknown) Medication (units (unk nown) date) Instructions unknown) Recorded (unknown) (no (unknown) (unknown) Mode of arrival: (units (unknown) date) EMS unknown) (unknown) (no (unknown) (unknown) Narrative (units (unkn own) date) unknown) (unknown) (no (unknown) (unknown) Narrative: (units (unk nown) date) unknown) (unknown) (no (unknown) (unknown) Neuro: normal (units ( unknown) date) speech and unknown) cognition, A+O x3, ambulatory, clear speech (unknown) (no (unknown) (unknown) New (units (unkno wn) date) unknown) (unknown) (no (unknown) (unknown) No Action (units (unkn own) date) unknown) (unknown) (no (unknown) (unknown) No Known Drug (units ( unknown) date) Allergies Allergy unknown) Verified 06/21/21 13:52 (unknown) (no (unknown) (unknown) No fracture (units (un known) date) identified. 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 XR (units (unknown) date) ELBOW LT MIN 3V unknown) (unknown) (no (unknown) (unknown) PROCEDURE:? XR (units (unknown) date) HIP W PEL IF DONE unknown) LT 2V (unknown) (no (unknown) (unknown) Patient (units (unkno wn) date) Disposition: Home unknown) (unknown) (no (unknown) (unknown) Patient History (units (unknown) date) unknown) (unknown) (no (unknown) (unknown) Patient has a (units ( unknown) date) history of unknown) Parkinson's disease, he is ambulatory and has a steady (unknown) (no (unknown) (unknown) Patient: (units (unkno wn) date) Isaac Jackson MR#: unknown) [id number] (unknown) (no (unknown) (unknown) Please follow-up (units (unknown) date) with your regular unknown) doctor if you are having any changes or (unknown) (no (unknown) (unknown) Point of Care (units ( unknown) date) Testing unknown) (unknown) (no (unknown) (unknown) Prescriptions: (units (unknown) date) unknown) (unknown) (no (unknown) (unknown) Previous Rx's (units ( unknown) date) unknown) (unknown) (no (unknown) (unknown) Psych: mental (units ( unknown) date) status is grossly unknown) normal, congruent mood, normal affect, pleasant (unknown) (no (unknown) (unknown) Pulse Oximetry 98 (units (unknown) date) 11/27/21 13:01 unknown) (unknown) (no (unknown) (unknown) Pulse Oximetry 98 (units (unknown) date) 97 97 unknown) (unknown) (no (unknown) (unknown) Pulse Rate 64 (units ( unknown) date) 11/27/21 13:01 unknown) (unknown) (no (unknown) (unknown) Pulse Rate 64 63 (units (unknown) date) 80 unknown) (unknown) (no (unknown) (unknown) Qualifiers: (units (un known) date) unknown) (unknown) (no (unknown) (unknown) Radiologist's (units ( unknown) date) Impression: unknown) (unknown) (no (unknown) (unknown) Recommend patient (units (unknown) date) follow-up with her unknown) primary care provider if his pain is (unknown) (no (unknown) (unknown) Referrals: (units (unk nown) date) unknown) (unknown) (no (unknown) (unknown) Related Data (units (u nknown) date) unknown) (unknown) (no (unknown) (unknown) Respiratory Rate (units (unknown) date) 18 11/27/21 13:01 unknown) (unknown) (no (unknown) (unknown) Respiratory Rate (units (unknown) date) 18 16 18 unknown) (unknown) (no (unknown) (unknown) Respiratory: (units (u nknown) date) normal effort, unknown) able to speak in complete sentences, without (unknown) (no (unknown) (unknown) Review of Systems (units (unknown) date) unknown) (unknown) (no (unknown) (unknown) Review of systems (units (unknown) date) is negative for unknown) acute abnormalities unless otherwise noted in (unknown) (no (unknown) (unknown) Reviewed vitals (units (unknown) date) signs and nursing unknown) notes. (unknown) (no (unknown) (unknown) Rx Instructions: (units (unknown) date) unknown) (unknown) (no (unknown) (unknown) Signed By: (units (unk nown) date) unknown) (unknown) (no (unknown) (unknown) Skin: brisk (units (un known) date) capillary refill, unknown) without pallor or erythema (unknown) (no (unknown) (unknown) Smoking Status: (units (unknown) date) Never smoker unknown) (unknown) (no (unknown) (unknown) Social History (units (unknown) date) (Reviewed 11/27/21 unknown) @ 13:38 by Vanesa Smith [facility]) (unknown) (no (unknown) (unknown) Soft tissues:? No (units (unknown) date) elbow joint unknown) effusion.? No suspicious soft tissue (unknown) (no (unknown) (unknown) Soft tissues:? (units (unknown) date) The visualized unknown) bowel gas pattern is normal.? No suspicious soft (unknown) (no (unknown) (unknown) Source: patient (units (unknown) date) and EMS unknown) (unknown) (no (unknown) (unknown) Stated Complaint: (units (unknown) date) GLF unknown) (unknown) (no (unknown) (unknown) Stop: 11/27/21 (units (unknown) date) 13:28 unknown) (unknown) (no (unknown) (unknown) Stop: 11/27/21 (units (unknown) date) 14:38 unknown) (unknown) (no (unknown) (unknown) Substance Use (units ( unknown) date) Type: does not use unknown) (unknown) (no (unknown) (unknown) TECHNIQUE:? 3 (units ( unknown) date) views of the elbow unknown) were acquired.? (unknown) (no (unknown) (unknown) TECHNIQUE:? AP (units (unknown) date) pelvis with unknown) lateral view(s) of the left hip(s).? (unknown) (no (unknown) (unknown) Temperature 98.3 (units (unknown) date) F 11/27/21 13:01 unknown) (unknown) (no (unknown) (unknown) Temperature 98.3 (units (unknown) date) F unknown) (unknown) (no (unknown) (unknown) This is a (units (unkn own) date) 86-year-old male unknown) who presents to the emergency department after he (unknown) (no (unknown) (unknown) This is an (units (unk nown) date) 86-year-old male unknown) who lives at home in [place] with his , who (unknown) (no (unknown) (unknown) Time Seen by (units (u nknown) date) Provider: 11/27/21 unknown) 13:22 (unknown) (no (unknown) (unknown) Visit Report (units (u nknown) date) Forms: Patient unknown) Portal/API (unknown) (no (unknown) (unknown) Vital Signs - 8 (units (unknown) date) hr unknown) (unknown) (no (unknown) (unknown) Vital Signs (units (un known) date) unknown) (unknown) (no (unknown) (unknown) Vital signs: (units (u nknown) date) unknown) (unknown) (no (unknown) (unknown) Wound of sacral (units (unknown) date) region unknown) (unknown) (no (unknown) (unknown) X-ray of his left (units (unknown) date) elbow did not show unknown) any acute abnormalities, x-ray of his left (unknown) (no (unknown) (unknown) Jennifer Bernal, (units (unknown) date) DRU [Primary Care unknown) Provider] (unknown) (no (unknown) (unknown) [ X] New (units (unkno wn) date) medication unknown) prescriptions sent to your pharmacy: [ DOD] (unknown) (no (unknown) (unknown) [ ] New (units (unkno wn) date) medication written unknown) as a paper prescription (unknown) (no (unknown) (unknown) [ ] No new (units (unk nown) date) medications given unknown) (unknown) (no (unknown) (unknown) a 3 after Tylenol (units (unknown) date) and lidocaine. He unknown) was given half a tab of hydrocodone and (unknown) (no (unknown) (unknown) able to flex and (units (unknown) date) extend his elbow unknown) but complains of left elbow pain. Has not (unknown) (no (unknown) (unknown) agrees to (units (unkn own) date) discharge home.? unknown) All questions and concerns answered at this time. (unknown) (no (unknown) (unknown) alcohol intake (units (unknown) date) frequency: unknown) holidays/special occasions only (unknown) (no (unknown) (unknown) and cooperative (units (unknown) date) unknown) (unknown) (no (unknown) (unknown) and left shoulder (units (unknown) date) pain where his unknown) rotator cuff pain is. He was given Tylenol, (unknown) (no (unknown) (unknown) apply to single (units (unknown) date) elbow, wrist or unknown) hand; for hand includes palm/fingers/back of (unknown) (no (unknown) (unknown) appointment. Let (units (unknown) date) them know you were unknown) seen in the Emergency Department and that we (unknown) (no (unknown) (unknown) are palpable, 1+, (units (unknown) date) with a brisk cap unknown) refill. He has mild dependent edema at (unknown) (no (unknown) (unknown) asked that you be (units (unknown) date) seen for unknown) follow-up. We will electronically transmit a record (unknown) (no (unknown) (unknown) baseline and (units (u nknown) date) wears a brief. unknown) (unknown) (no (unknown) (unknown) be given as this (units (unknown) date) will be an unknown) increase in his fall risk.? Patient denies any (unknown) (no (unknown) (unknown) before bed and (units (unknown) date) start only with a unknown) half of a tab. (unknown) (no (unknown) (unknown) calcifications.? (units (unknown) date) unknown) (unknown) (no (unknown) (unknown) closely with (units (u nknown) date) outpatient unknown) providers as instructed.? Patient understands plan and (unknown) (no (unknown) (unknown) concerning (units (unk nown) date) symptoms, such as unknown) [fever greater than 101F, chills, worsening pain, (unknown) (no (unknown) (unknown) contusion and a (units (unknown) date) left elbow injury unknown) without fracture. Please use Tylenol 650 mg (unknown) (no (unknown) (unknown) degenerative (units (u nknown) date) joint disease. unknown) Patient states that he feels better and his pain as (unknown) (no (unknown) (unknown) diclofenac sodium (units (unknown) date) 1 % topical gel 2 unknown) g topical QID PRN shoulder pain 06/21/21 (unknown) (no (unknown) (unknown) diclofenac sodium (units (unknown) date) [Voltaren unknown) Arthritis Pain] 1 % gel (unknown) (no (unknown) (unknown) difficulty. (units (un known) date) Patient walks with unknown) a walker at baseline and use this for transfer. (unknown) (no (unknown) (unknown) discussed at (units (u nknown) date) length with unknown) patient, his , when to take it and how to avoid (unknown) (no (unknown) (unknown) emergency (units (unkn own) date) department via unknown) after a mechanical fall when he tripped with his right (unknown) (no (unknown) (unknown) establish care (units (unknown) date) with one of the unknown) [facility] primary care providers. (unknown) (no (unknown) (unknown) evaluated by the (units (unknown) date) [facility] in the unknown) department. (unknown) (no (unknown) (unknown) every 6 hours as (units (unknown) date) needed for pain, unknown) stay hydrated remember to eat food when taking (unknown) (no (unknown) (unknown) fall, initial (units ( unknown) date) encounter unknown) (unknown) (no (unknown) (unknown) foot taking a (units ( unknown) date) step up 2 steps unknown) falling down onto his left side hurting his left (unknown) (no (unknown) (unknown) gait when he got (units (unknown) date) up from sitting to unknown) standing tolerated bearing weight without (unknown) (no (unknown) (unknown) gel and lidocaine (units (unknown) date) patches.? Patient unknown) is appropriate and amenable to discharge (unknown) (no (unknown) (unknown) hand (units (unkno wn) date) unknown) (unknown) (no (unknown) (unknown) has a history of (units (unknown) date) Parkinson's unknown) disease and presents to the emergency department (unknown) (no (unknown) (unknown) has been informed (units (unknown) date) of results.? unknown) Patient has been given strict return to ER (unknown) (no (unknown) (unknown) has ongoing pain (units (unknown) date) beyond 1 week.? We unknown) given a prescription for diclofenac topical (unknown) (no (unknown) (unknown) he has not tried (units (unknown) date) walking since his unknown) injury. (unknown) (no (unknown) (unknown) headache, nausea, (units (unknown) date) vomiting, neck unknown) pain or other injury.and presents to the (unknown) (no (unknown) (unknown) hip and his left (units (unknown) date) elbow. He denies unknown) taking any anticoagulants, states the pain on (unknown) (no (unknown) (unknown) hip and pelvis do (units (unknown) date) not show any unknown) fractures either but show moderate bilateral hip (unknown) (no (unknown) (unknown) his left hip is (units (unknown) date) on the lateral unknown) aspect and slightly lower down in his mid thigh. (unknown) (no (unknown) (unknown) home.? Vital (units (u nknown) date) signs are stable unknown) on repeat examination is unremarkable.? Patient (unknown) (no (unknown) (unknown) hydrocodone 5 (units ( unknown) date) mg-acetaminophen unknown) 325 0.5 tab PO BEDTIME PRN pain #10 11/27/21 (unknown) (no (unknown) (unknown) hydrocodone-aceta (units (unknown) date) minophen 5-325 mg unknown) tablet (unknown) (no (unknown) (unknown) initial encounter (units (unknown) date) unknown) (unknown) (no (unknown) (unknown) issues due to his (units (unknown) date) Parkinson's and unknown) his requests no mind-altering medications (unknown) (no (unknown) (unknown) leave on most (units ( unknown) date) painful area for unknown) up to 12 hrs (unknown) (no (unknown) (unknown) left lower leg, (units (unknown) date) initial encounter unknown) (unknown) (no (unknown) (unknown) lesions.? (units (unkn own) date) Moderate bilateral unknown) hip DJD.? (unknown) (no (unknown) (unknown) lidocaine 5 % (units ( unknown) date) adhesive unknown) patch,medicated (unknown) (no (unknown) (unknown) lidocaine 5 % (units ( unknown) date) topical patch 1 unknown) patch topical DAILY #15 ea 11/27/21 (unknown) (no (unknown) (unknown) lidocaine 5 % (units ( unknown) date) topical patch 1 unknown) patch topical DAILY PRN shoulder 06/21/21 (unknown) (no (unknown) (unknown) lidocaine (units (unkn own) date) [Lidoderm] 5 % unknown) adhesive patch,medicated (unknown) (no (unknown) (unknown) lidocaine patch (units (unknown) date) in the emergency unknown) department with some improvement in his pain.? (unknown) (no (unknown) (unknown) loss of (units (unkno wn) date) consciousness, unknown) denies any numbness or tingling or sensation changes. Is (unknown) (no (unknown) (unknown) medication needs. (units (unknown) date) unknown) (unknown) (no (unknown) (unknown) medications. Keep (units (unknown) date) an assistive unknown) walking device with you at all times and try to (unknown) (no (unknown) (unknown) mentation which (units (unknown) date) could cause you to unknown) fall. Please take this only as you need to (unknown) (no (unknown) (unknown) mg tablet tabs (units (unknown) date) unknown) (unknown) (no (unknown) (unknown) mupirocin 2 % (units ( unknown) date) ointment unknown) (unknown) (no (unknown) (unknown) mupirocin 2 % (units ( unknown) date) topical ointment 1 unknown) applic topical BID sacral wound 11/27/21 (unknown) (no (unknown) (unknown) of today's note (units (unknown) date) if your PCP is in unknown) our system (unknown) (no (unknown) (unknown) ongoing, (units (unkno wn) date) discussed taking unknown) half a tab of hydrocodone as needed for breakthrough (unknown) (no (unknown) (unknown) open wound of (units ( unknown) date) lower back and unknown) pelvis without penetration into retroperitoneum, (unknown) (no (unknown) (unknown) over pelvis (units (un known) date) anterior and unknown) pressure tenderness over the lateral mid left upper (unknown) (no (unknown) (unknown) pain #15 ea (units (un known) date) unknown) (unknown) (no (unknown) (unknown) pain if (units (unkno wn) date) difficulty unknown) sleeping. His will encourage hydration and meals, they (unknown) (no (unknown) (unknown) palpated, denies (units (unknown) date) any incontinence unknown) or head injury when this happened. Denies any (unknown) (no (unknown) (unknown) patient able to (units (unknown) date) flex his left hip unknown) to 90? without significant pain, no tenderness (unknown) (no (unknown) (unknown) persistent (units (unk nown) date) vomiting or other unknown) bothersome symptoms]. (unknown) (no (unknown) (unknown) precautions for (units (unknown) date) any new or unknown) worsening symptoms.? Patient understands to follow up (unknown) (no (unknown) (unknown) prevent falls (units ( unknown) date) with all of your unknown) energy. You can take half of a pain pill every (unknown) (no (unknown) (unknown) suspicious bony (units (unknown) date) unknown) (unknown) (no (unknown) (unknown) symptoms. He was (units (unknown) date) instructed to unknown) follow-up with his primary care provider if he (unknown) (no (unknown) (unknown) taken any pain (units (unknown) date) medication today. unknown) Patient uses a walker to ambulate at baseline, (unknown) (no (unknown) (unknown) tamsulosin 0.4 mg (units (unknown) date) capsule (Flomax) unknown) 0.4 mg PO DAILY #10 caps 02/06/20 (unknown) (no (unknown) (unknown) tamsulosin (units (unk nown) date) [Flomax] 0.4 mg unknown) capsule (unknown) (no (unknown) (unknown) tenderness or (units ( unknown) date) exquisite unknown) tenderness with exam. (unknown) (no (unknown) (unknown) thigh with no (units ( unknown) date) obvious deformity unknown) or ecchymosis. Patient's left DP and PT pulses (unknown) (no (unknown) (unknown) tissue (units (unkno wn) date) unknown) (unknown) (no (unknown) (unknown) today after a (units ( unknown) date) ground level unknown) fall.? Patient has generalized weakness and balance (unknown) (no (unknown) (unknown) tripped and had a (units (unknown) date) mechanical fall unknown) complaining lateral left hip pain, left elbow, (unknown) (no (unknown) (unknown) understand to (units ( unknown) date) come back to the unknown) emergency department for any new or worsening (unknown) (no (unknown) (unknown) walking around (units (unknown) date) after taking any unknown) medication that might alter his balance. (unknown) (no (unknown) (unknown) wheezing, (units (unkn own) date) stridor, or unknown) abnormal breath sounds. No retractions or tachypnea. Social History No information. Vital Signs No information.
--- NOTE | 2021-12-16 20:14 | XRAY Report ---
PROCEDURE: Shoulder 3 View BILAT INDICATIONS: b shoulder inj TECHNIQUE: 3 views of the bilateral shoulder were acquired. COMPARISON: 04/10/2019 FINDINGS: Bones: No acute fractures or dislocations. Moderate degenerative changes of the bilateral acromiocla vicular and glenohumeral joints. The coracoclavicular and acromioclavicular intervals are maintained. No suspicious bony lesions. Visualized ribs appear intact. Soft tissues: No suspicious soft tissue calcifications. IMPRESSION: Bilateral shoulder without acute fracture or dislocation. Moderate degenerative changes of the bilateral glenohumeral and acromioclavicular joints. Reviewed by: Liu Yoo MD on 12/16/2021 8:13 PM PDT Approved by: Liu Yoo MD on 12/16/2021 8:13 PM PDT Station ID: [id number]
--- NOTE | 2021-12-16 20:15 | CT Report ---
PROCEDURE: HEAD WO INDICATIONS: head injury TECHNIQUE: Noncontrast 4.5 mm thick angled axial sections acquired from the foramen magnum to the vertex. For r adiation dose reduction, the following was used: automated exposure control, adjustment of mA and/or kV according to patient size. COMPARISON: None. FINDINGS: Image quality: Excellent. CSF spaces: Basal cisterns are patent. No extra-axial fluid collections. Ventricles are normal in size and shape. Brain: No midline shift. No intracranial masses or hemorrhage. Sandhu-white matter interface is norm al. Skull and face: Calvarium and visualized facial bones are intact, without suspicious lesions. Sinuses: Visualized sinuses and mastoids are clear. IMPRESSION: No intracranial hemorrhage or other acute intracranial abnormality. Reviewed by: Anthony Tracey MD on 12/16/2021 8:13 PM PDT Approved by: Anthony Tracey MD on 12/16/2021 8:13 PM PDT Station ID: [id number]
--- NOTE | 2021-12-16 20:38 | CT Report ---
PROCEDURE: CHEST WO INDICATIONS: fall back pain TECHNIQUE: Noncontrast 1mm axial images were acquired from the pulmonary apices to the posterior costophrenic an gles. Axial 5 mm soft tissue kernel reconstructions were performed as well as 8 mm axial MIP and cor onal and sagittal 5 mm reformations. For radiation dose reduction, the following was used: automate d exposure control, adjustment of mA and/or kV according to patient size. COMPARISON: CT chest 02/06/2020. FINDINGS: Image quality: Excellent. Images are denoted as (series #/image #). FINDINGS: Lymph nodes: No evidence of thoracic lymphadenopathy however evaluation for mediastinal and hilar carol nopathy is limited in the absence of intravenous contrast. A few calcified right hilar lymph nodes ar e present probably sequela of prior granulomatous disease. Vasculature: Aorta and main pulmonary artery diameters are within normal range. Heart: No pericardial effusion. Multivessel coronary artery calcifications and/or stents. Lung parenchyma and pleura: No lobar consolidation or definite laceration. No pleural effusion or pne umothorax. Redemonstrated calcified granuloma left lower lobe. A few other scattered calcified granul omata are present. Chest wall/musculoskeletal: Multilevel degenerative change of the visualized spine. No acute fracture visualized. Visualized upper abdomen: Unremarkable. IMPRESSION: No acute traumatic abnormality visualized within the chest on this noncontrast examination. Reviewed by: Anthony Tracey MD on 12/16/2021 8:37 PM PDT Approved by: Anthony Tracey MD on 12/16/2021 8:37 PM PDT Station ID: [id number]
--- NOTE | 2021-12-16 20:44 | CT Report ---
PROCEDURE: CERVICAL SPINE WO INDICATIONS: head injury TECHNIQUE: Noncontrast 3 mm thick sections acquired from the skull base to the T4 level. Sagittal and coronal r eformats were then constructed. For radiation dose reduction, the following was used: automated exp osure control, adjustment of mA and/or kV according to patient size. COMPARISON: CT cervical spine 11/23/2021 FINDINGS: Image quality: Excellent. Bones: No acute fractures or dislocations. Visualized superior ribs are intact. Multilevel degenerative change of the visualized spine. Soft tissues: Prevertebral soft tissues are normal in thickness. No paravertebral hematomas. No ap ical pneumothoraces. IMPRESSION: No acute cervical spine fracture visualized. Reviewed by: Anthony Tracey MD on 12/16/2021 8:43 PM PDT Approved by: Anthony Tracey MD on 12/16/2021 8:43 PM PDT Station ID: [id number]
--- NOTE | 2021-12-16 20:52 | XRAY Report ---
PROCEDURE: Elbow 3 View BILAT INDICATIONS: Left and right elbow inj TECHNIQUE: 3 views of the left and right elbows were acquired. COMPARISON: None. FINDINGS: Bones: No fractures or dislocations. No suspicious bony lesions. Soft tissues: No elbow joint effusion. No suspicious soft tissue calcifications. IMPRESSION: No trauma to either elbow is found. Reviewed by: Rudolph Easton MD on 12/16/2021 8:50 PM PDT Approved by: Rudolph Easton MD on 12/16/2021 8:50 PM PDT Station ID: [id number]
--- NOTE | 2021-12-16 20:53 | XRAY Report ---
PROCEDURE: Wrist 4 View LT INDICATIONS: wrist inj TECHNIQUE: 4 views of the wrist were acquired. COMPARISON: None FINDINGS: Bones: No fractures or dislocations. No suspicious bony lesions. Scaphoid view: No trauma to the scaphoid is found. Soft tissues: No suspicious soft tissue calcifications. IMPRESSION: There is mild to moderate degenerative changes involving the base of the thumb and interface between the distal radius and ulna but no acute trauma found. Reviewed by: Rudolph Easton MD on 12/16/2021 8:52 PM PDT Approved by: Rudolph Easton MD on 12/16/2021 8:52 PM PDT Station ID: [id number]
--- NOTE | 2021-12-16 20:54 | CT Report ---
PROCEDURE: Abdomen/Pelvis WO INDICATIONS: fall back pain TECHNIQUE: Noncontrast 5 mm thick sections acquired from the diaphragms to the symphysis. 5 mm coronal and sagi ttal reformats were then performed. For radiation dose reduction, the following was used: automated exposure control, adjustment of mA and/or kV according to patient size. COMPARISON: CT abdomen pelvis 02/06/2020. FINDINGS: Image quality: Excellent. Images are denoted as (series #/image #). Visualized lung bases: No pleural effusion. Liver and biliary tree: Unremarkable noncontrast appearance. Gallbladder: No radiopaque cholelithiasis. Spleen: Multiple granulomata present, otherwise unremarkable noncontrast appearance. Pancreas: Unremarkable noncontrast appearance. Adrenal glands: Unremarkable noncontrast appearance. Kidneys and ureters: No hydronephrosis. Gastrointestinal tract: No bowel obstruction. Severe predominantly sigmoid colonic diverticulosis wit hout evidence of acute diverticulitis. Peritoneal cavity: No free air or free fluid. Bladder: Unremarkable noncontrast appearance. Pelvic organs: Prostatomegaly. Vasculature: Atherosclerosis without abdominal aortic aneurysm. Lymph nodes: No highly suspicious lymph nodes identified. Musculoskeletal: Degenerative change of the spine. No acute fracture visualized. IMPRESSION: No acute traumatic abnormality visualized within the abdomen or pelvis on this noncontrast exam. Reviewed by: Anthony Tracey MD on 12/16/2021 8:53 PM PDT Approved by: Anthony Tracey MD on 12/16/2021 8:53 PM PDT Station ID: [id number]
--- NOTE | 2021-12-16 21:11 | ED Physician Documentation ---
ED Addendum - Addendum Addendum: 12/16/21 21:10 The patient had fallen and had multiple areas of injury and soreness. He also had a skin tear laceration in the left elbow that had been already Steri- Stripped and bandaged. I left that intact. Following up on his imaging reports for the CT scans and x-rays did not show any internal bleeding, organ injuries, fractures. Talking with the patient and his , he was alert and conversant. He is able to move his shoulders elbows and wrists though had some soreness. Unlabored breathing. Abdomen nontender. At this point he can be discharged from the department. He and his were agreeable with that and felt happy to be heading home. He was to use Tylenol regularly for pains. They did not feel anything stronger was it needed.
[2021-12-16 21:29] VITALS: BP 171/73
== END 2021-12-16 21:29 | disposition home or self-care (01) ==
LOC: EDUNIT# → ED 18:35
DX: S51.812A Laceration without foreign body of left forearm, initial encounter (principal); S00.83XA Contusion of other part of head, initial encounter; S20.221A Contusion of right back wall of thorax, initial encounter; S40.012A Contusion of left shoulder, initial encounter; S40.011A Contusion of right shoulder, initial encounter; S50.02XA Contusion of left elbow, initial encounter; S63.502A Unspecified sprain of left wrist, initial encounter; W01.198A Fall on same level from slipping, tripping and stumbling with subsequent striking against other object, initial encounter; I10 Essential (primary) hypertension; E11.9 Type 2 diabetes mellitus without complications; Z79.4 Long term (current) use of insulin; Z23 Encounter for immunization; Z71.85 Encounter for immunization safety counseling
CPT/HCPCS: 12002; 70450; 71250; 72125; 73030; 73080; 73110; 74176; 90715; 99282; 99284; A9270

== ENCOUNTER 2021-12-21 12:01 | Outpatient (CLI) | payer MEDICARE, OTHER ==
[2021-12-21 18:12] LABS: ALBUMIN 3.9 g/dL (3.2-5.5); ALBUMIN/GLOBULIN RATIO 1.3 (1.0-2.2); ALKALINE PHOSPHATASE 56 IU/L (42-121); ALT ALANINE AMINOTRANSFERASE < 10 IU/L (10-60); AST ASPARTATE AMINOTRANSFERASE 12 IU/L (10-42); BILIRUBIN,TOTAL 0.6 mg/dL (0.2-1.0); BUN - BLOOD UREA NITROGEN 23 mg/dL (6-20); CALCIUM 9.9 mg/dL (8.5-10.3); CARBON DIOXIDE - CO2 28 mmol/L (21-32); CHLORIDE 104 mmol/L (101-111); CHOL/HDL RATIO 3.2 (<5.0); CHOLESTEROL 146 mg/dL; CREATININE 1.2 mg/dL (0.6-1.2); GFR - MDRD 57 (>89); GLUCOSE 169 mg/dL (70-100); HDL CHOLESTEROL 46 mg/dL; LDL CHOLESTEROL,CALCULATED 80 mg/dL; LDL/HDL RATIO 1.7 (<3.6); POTASSIUM 4.2 mmol/L (3.5-5.0); SODIUM 141 mmol/L (135-145); TOTAL PROTEIN 6.9 g/dL (6.7-8.2); TRIGLYCERIDES 102 mg/dL; VLDL CHOLESTEROL 20 mg/dL
[2021-12-21 20:58] LABS: ESTIMATED AVERAGE GLUCOSE 183 mg/dL (70-100)
== END 2021-12-21 12:02 | disposition home or self-care (01) ==
LOC: LAB.N 12:01
PROVIDERS: ATTEND Physician Assistant Medical
DX: E11.29 Type 2 diabetes mellitus with other diabetic kidney complication (principal)
CPT/HCPCS: 36415; 80053; 80061; 83036; 83721

== ENCOUNTER 2022-02-05 13:12 | Outpatient (CLI) | payer MEDICARE, OTHER | END 2022-02-05 13:13 | disposition EMS.NT | LOC: EMS 13:12 | DX: Z03.89 Encounter for observation for other suspected diseases and conditions ruled out (principal) ==

== ENCOUNTER 2022-02-22 18:26 | Outpatient (CLI) | payer MEDICARE, OTHER | END 2022-02-22 18:27 | disposition critical access hospital (66) | LOC: EMS 18:26 | DX: S51.011A Laceration without foreign body of right elbow, initial encounter (principal); W01.0XXA Fall on same level from slipping, tripping and stumbling without subsequent striking against object, initial encounter; Y92.009 Unspecified place in unspecified non-institutional (private) residence as the place of occurrence of the external cause | CPT/HCPCS: A0425; A0429 ==

== ENCOUNTER 2022-02-22 18:45 | Emergency (ER) | payer MEDICARE, OTHER ==
--- NOTE | 2022-02-22 18:53 | ED Physician Documentation ---
PD HPI Fall - Stated complaint Stated Complaint: GLF - History obtained from History obtained from: Patient, EMS - Additional information Additional information: 86-year-old gentleman who is not anticoagulated but has a history of Parkinson's with unknown tetanus status has had a sore right knee for a few days and got up today and it gave out on him and he fell and hit the back of his head. He has a headache but did not reportedly blackout. He has a skin tear on the right elbow and the dorsum of the right hand. No other apparent injuries. Note made for chart review he is up-to-date on tetanus and had a tetanus shot about 2 months ago here. Review of Systems Ten Systems: 10 systems reviewed and negative Throat: reports: Reviewed and negative Cardiac: reports: Reviewed and negative PD PAST MEDICAL HISTORY - Past Medical History Cardiovascular: Hypertension Respiratory: None Endocrine/Autoimmune: Type 2 diabetes Musculoskeletal: Other - Present Medications Home Medications: Ambulatory Orders Medication Instructions Recorded Confirmed Aspirin 81 mg PO DAILY 03/11/17 10/10/20 Carbidopa/Levodopa [Carbidopa-Levo 100 mg PO QID 03/11/17 10/10/20 ER 25-100 Tab] Esomeprazole Magnesium 20 mg PO DAILY 03/11/17 10/10/20 Fenofibrate 160 mg PO DAILY 03/11/17 10/10/20 Insulin Aspart [NovoLOG] 8 - 14 units SUBQ AC 03/11/17 10/10/20 Insulin Glargine [Lantus Solostar] 24 units SUBQ QDBREAKFAST 03/11/17 10/10/20 Simvastatin 40 mg PO QPM 03/11/17 10/10/20 lisinopriL [Lisinopril] 20 mg PO DAILY 03/11/17 10/10/20 Latanoprost 0.005% Ophth Drops 1 drops EACHEYE QPM 10/10/20 10/10/20 [Xalatan Ophth Drops] SITagliptin [Januvia] 100 mg PO DAILY 10/10/20 10/10/20 Timolol 0.5% Ophth Drops [Timoptic 1 drops EACHEYE BID 10/10/20 10/10/20 0.5% Ophth Drops] - Allergies Allergies/Adverse Reactions: Allergies Allergy/AdvReac Type Severity Reaction Status Date / Time No Known Drug Allergies Allergy Verified 02/22/22 18:54 - Social History Does the pt smoke?: No Smoking Status: Never smoker PD ED PE NORMAL - Vitals Vital signs reviewed: Yes - General General: Alert and oriented X 3, Other (Parkinsonian tremor) - HEENT HEENT: PERRL, EOMI - Neck Neck: Supple, no meningeal sign, No bony TTP - Cardiac Cardiac: RRR, No murmur - Respiratory Respiratory: No respiratory distress, Clear bilaterally - Abdomen Abdomen: Non tender - Back Back: No CVA TTP, No spinal TTP - Derm Derm: Normal color, Warm and dry - Extremities Extremities: Other (Skin tear large on the right elbow with mild tenderness, small skin tear dorsum right hand no tenderness there. No right knee tenderness.) - Neuro Neuro: Alert and oriented X 3, Normal speech Results - Vitals Vitals: Vital Signs - 24 hr 02/22/22 02/22/22 18:49 20:04 Temperature 36.6 C 36.6 C Heart Rate 66 64 Respiratory 14 18 Rate Blood Pressure 153/102 H 150/96 H O2 Saturation 99 98 Oxygen O2 Source Room air - Rads (name of study) CT of the head and cervical spine demonstrate microvascular ischemic and age-related changes. No sign of trauma. Radiology: EMP read contemporaneously Three-view x-ray of the right elbow was negative. Radiology: EMP read contemporaneously PD MEDICAL DECISION MAKING - ED course ED course: 86-year-old gentleman with increasingly frequent falls related to parkinsonism presents after another fall today with concern for head injury. Supportive at the bedside and we discussed negative imaging and she is happy to take him home but worries that "he is close to the end." Departure - Departure Disposition: 01 Home, Self Care Clinical Impression: Head injury Qualifiers: Encounter type: initial encounter Qualified Code(s): S09.90XA - Unspecified injury of head, initial encounter Contusion of right elbow Qualifiers: Encounter type: initial encounter Qualified Code(s): S50.01XA - Contusion of right elbow, initial encounter Skin tear of right elbow without complication Qualifiers: Encounter type: initial encounter Qualified Code(s): S51.011A - Laceration without foreign body of right elbow, initial encounter Skin tear of right hand without complication Qualifiers: Encounter type: initial encounter Qualified Code(s): S61.411A - Laceration without foreign body of right hand, initial encounter Condition: Good Record reviewed to determine appropriate education?: Yes Instructions: ED Head Injury Closed, ED Avulsion Dermal Comments: For the wounds, wash with soap and water briefly and then blot them dry. The strips will fall off in a bit, at that time just keep them covered with Band- Aids. Return for new or worsening symptoms. Follow-up with your doctor, next available appointment. Discharge Date/Time: 02/22/22 20:04
--- OUTSIDE RECORDS SUMMARY | 2022-02-22 19:18 | EXTERNAL MEDICAL SUMMARY RPT | Continuity of Care Document ---
:1935 Author Organization [facility] Address [address] [place] [address] Phone Care Team Providers Name Role Phone Jennifer Bernal Unavailable Unavailable Allergies and Intolerances date description facility type (no date) No Known Drug Allergies [facility] (unkn own) Encounters No information. Functional Status No information. Immunizations No information. Medications date description facility [id number] Mupirocin [facility] [id number] Lidocaine [facility] [id number] Hydrocodone-Acetaminophen [facility] ital Problems No information. Procedures date description facility [id number] XR elbow LT min 3V [facility] [id number] XR hip w pel if done LT 2V [facility] pital Results/Labs test date author facility value unit interpret ation Result panel 1 (unknown) (no date) (unknown) (unknown) (no value) (units (un known) unknown) (unknown) (no date) (unknown) (unknown) 11/27/21 (units (unkn own) unknown) (unknown) (no date) (unknown) (unknown) [address] (units (unk nown) [address] unknown) (unknown) (no date) (unknown) (unknown) [address] (units (unkn own) unknown) (unknown) (no date) (unknown) (unknown) Accession (units (unk nown) Number: unknown) [id number] (unknown) (no date) (unknown) (unknown) Accession (units (unk nown) Number: unknown) [id number] (unknown) (no date) (unknown) (unknown) Age/Sex: 86 / (units (unknown) M Date of unknown) Service: (unknown) (no date) (unknown) (unknown) [facility] [place] (units (unknown) [id number] unknown) (unknown) (no date) (unknown) (unknown) Approved by: (units ( unknown) Mikael unknown) Kristin Ford on 11/27/2021 at 14:39 (unknown) (no date) (unknown) (unknown) Approved by: (units ( unknown) Jeremiah Milton, unknown) Kristin on 11/27/2021 at 14:17 (unknown) (no date) (unknown) (unknown) Bones: No (units (unk nown) fractures or unknown) dislocations. No suspicious bony lesions. (unknown) (no date) (unknown) (unknown) Bones: No (units (unk nown) fractures or unknown) dislocations. Pelvic ring appears intact. No (unknown) (no date) (unknown) (unknown) COMPARISON: (units (u nknown) None. unknown) (unknown) (no date) (unknown) (unknown) : (units (unkn own) 1935 unknown) Acct:[id number] (unknown) (no date) (unknown) (unknown) Dictated by: (units ( unknown) Mikael unknown) Kristin Ford on 11/27/2021 at 14:38 [...] (units (unkn own) Isaac Jackson unknown) MR#: [id number] (unknown) (no date) (unknown) (unknown) Procedure: XR [...] (unknown) (unknown) : 1935 (units (unknown) date) Acct:[id number] unknown) (unknown) (no (unknown) (unknown) Date of (units (unkno wn) date) Service: unknown) 11/27/21 (unknown) (no (unknown) (unknown) Departure (units (unkn own) date) unknown) (unknown) (no (unknown) (unknown) Discharge Plan (units (unknown) date) unknown) (unknown) (no (unknown) (unknown) ED Orders (units (unkn own) date) unknown) (unknown) (no (unknown) (unknown) ER Physician: (units ( unknown) date) Crew,Vanesa Mitchell unknown) DESIGN TECHNICIAN (unknown) (no (unknown) (unknown) Emergency (units (unkn [...] date) Signs: unknown) (unknown) (no (unknown) (unknown) [facility] (units (unknown) date) [address] [place] [address] Street unknown) [place] [address] (unknown) (no (unknown) (unknown) Medication (units (unk [...] (unkno wn) date) Isaac Jackson MR#: unknown) [id number] (unknown) (no (unknown) (unknown) Prescriptions: (units (unknown) [...] male unknown) who lives at home in [place] and presents to the (unknown) (no (unknown) [...] Jennifer Bernal, (units (unknown) date) DRU [Primary unknown) Care Provider] (unknown) (no (unknown) [...] (unknown) (unknown) : 1935 (units (unknown) date) Acct:[id number] unknown) (unknown) (no (unknown) (unknown) Date of Service: (units (unknown) date) 11/27/21 unknown) (unknown) (no (unknown) (unknown) Departure (units (unkn own) date) unknown) (unknown) (no (unknown) (unknown) Discharge Plan (units (unknown) date) unknown) (unknown) (no (unknown) (unknown) ED Orders (units (unkn own) date) unknown) (unknown) (no (unknown) (unknown) ER Physician: (units ( unknown) date) Crew,Vanesa Mitchell unknown) DESIGN TECHNICIAN (unknown) (no (unknown) (unknown) Emergency Report (units [...] date) Signs: unknown) (unknown) (no (unknown) (unknown) [facility] (units (unknown) date) [address] unknown) [place] [address] (unknown) (no (unknown) (unknown) MSK: moves all [...] (unkno wn) date) Isaac Jackson MR#: unknown) [id number] (unknown) (no (unknown) (unknown) Prescriptions: (units (unknown) [...] 11/27/21 unknown) @ 13:38 by Vanesa Smith DESIGN TECHNICIAN) (unknown) (no (unknown) (unknown) Source: patient (units [...] male unknown) who lives at home in [place] and presents to the (unknown) (no (unknown) [...] (unknown) (unknown) : 1935 (units (unknown) date) Acct:[id number] unknown) (unknown) (no (unknown) (unknown) Date of [...] (units ( unknown) date) Vanesa Smith unknown) DESIGN TECHNICIAN (unknown) (no (unknown) (unknown) Emergency Report (units [...] date) Signs: unknown) (unknown) (no (unknown) (unknown) [facility] (units (unknown) date) [address] [place] [address] unknown) [place] [address] (unknown) (no (unknown) (unknown) Lidocaine (units (unkn [...] (unkno wn) date) Isaac Jackson MR#: unknown) [id number] (unknown) (no (unknown) (unknown) Prescriptions: (units (unknown) [...] male unknown) who lives at home in [place] with his , who (unknown) (no (unknown) [...] Stat unknown) (unknown) (no (unknown) (unknown) Jennifer eBrnal, (units (unknown) date) PA-C [Primary Care unknown) [...] <Electronically (units (unknown) date) signed by Vanesa romano) Paula [facility] Crew> (unknown) (no (unknown) (unknown) (Lidoderm) (units (unk nown) date) unknown) (unknown) (no (unknown) (unknown) (Voltaren (units (unkn own) date) Arthritis Pain) unknown) #100 grams (unknown) (no (unknown) (unknown) *If you do not (units (unknown) date) have a primary unknown) care provider please contact [phone] to (unknown) (no (unknown) (unknown) *Please continue [...] (unknown) (unknown) : 1935 (units (unknown) date) Acct:[id number] unknown) (unknown) (no (unknown) (unknown) Date of [...] unknown) (unknown) (no (unknown) (unknown) Documented By: ALY (units (unknown) date) unknown) (unknown) (no (unknown) (unknown) ED Orders (units (unkn own) date) unknown) (unknown) (no (unknown) (unknown) ER Physician: (units ( unknown) date) Vanesa Smith unknown) DESIGN TECHNICIAN (unknown) (no (unknown) (unknown) Emergency Report (units [...] for Shoulder Pain (unknown) (no (unknown) (unknown) [facility] (units (unknown) date) [address] [place] [address] unknown) [place] [address] (unknown) (no (unknown) (unknown) Lab Data (units [...] (unkno wn) date) Isaac Jackson MR#: unknown) [id number] (unknown) (no (unknown) (unknown) Please follow-up (units [...] 11/27/21 unknown) @ 13:38 by Vanesa Smith [facility]) (unknown) (no (unknown) (unknown) Soft tissues:? No [...] male unknown) who lives at home in [place] with his , who (unknown) (no (unknown) [...] (unknown) (unknown) Jennifer Bernal, (units (unknown) date) [facility] [Primary Care unknown) Provider] (unknown) (no (unknown) [...] (unknown) date) with one of the unknown) [facility] primary care providers. (unknown) (no (unknown) [...] <Electronically (units (unknown) date) signed by Vanesa Smith> (unknown) (no (unknown) (unknown) <Electronically (units (unknown) date) signed by Octavio romano) MD Edward> (unknown) (no (unknown) (unknown) <Vanesa [...] a primary unknown) care provider please contact [phone] to (unknown) (no (unknown) (unknown) *Please continue [...] (unknown) (unknown) : 1935 (units (unknown) date) Acct:[id number] unknown) (unknown) (no (unknown) (unknown) Date of [...] unknown) (unknown) (no (unknown) (unknown) Documented By: ALY (units (unknown) date) unknown) (unknown) (no (unknown) (unknown) ED Attending (units (u nknown) date) Cosignature unknown) Attestation: (unknown) (no (unknown) (unknown) ER Physician: (units ( unknown) date) Vanesa Smith unknown) DESIGN TECHNICIAN (unknown) (no (unknown) (unknown) Elbow injury (units [...] for Shoulder Pain (unknown) (no (unknown) (unknown) [facility] (units (unknown) date) [address] [place] [address] unknown) [place] [address] (unknown) (no (unknown) (unknown) Lab Data (units [...] (unkno wn) date) Isaac Jackson MR#: unknown) [id number] (unknown) (no (unknown) (unknown) Please follow-up (units [...] 11/27/21 unknown) @ 13:38 by Vanesa Smith [facility]) (unknown) (no (unknown) (unknown) Soft tissues:? No [...] male unknown) who lives at home in [place] with his , who (unknown) (no (unknown) [...] (unknown) date) with one of the unknown) [facility] primary care providers. (unknown) (no (unknown) [...] sounds. No retractions or tachypnea. Social History date description facility +0000 Never smoked tobacco ([facility] Vital Signs date measurement value units [id number]+0000 BMI BMI 28.2 kg/m2 59238047488088+0000 BP_diastolic BP_diastolic 78 mmHg [id number]+0000 BP_systolic BP_systolic 142 mmHg 02859506269237+0000 heart_rate heart_rate 80 /min 41711176131705+0000 height_metric height_metric 167.64 cm [id number]+0000 height_standard height_standard 66 in 50876214134615+0000 respiration_rate respiration_rate 18 /min 91634159828688+0000 temperature_metric temperature_metric 36.83 C 60572001433167+0000 temperature_standard temperature_standard 9 8.3 F [id number]+0000 weight_metric weight_metric 79.379 g_ code [id number]+0000 weight_standard weight_standard 79.379 g_code
--- NOTE | 2022-02-22 19:24 | XRAY Report ---
PROCEDURE: Elbow 3 View RT INDICATIONS: elbow inj TECHNIQUE: 3 views of the elbow were acquired. COMPARISON: None FINDINGS: Bones: No fractures or dislocations. No suspicious bony lesions. Soft tissues: No elbow joint effusion. No suspicious soft tissue calcifications. IMPRESSION: No acute abnormality of the right elbow Reviewed by: Mikael Ford on 02/22/2022 7:23 PM [facility] Approved by: Mikael Ford on 02/22/2022 7:23 PM [facility] Station ID: [id number]
--- NOTE | 2022-02-22 19:26 | CT Report ---
PROCEDURE: CERVICAL SPINE WO INDICATIONS: head inj TECHNIQUE: Noncontrast 3 mm thick sections acquired from the skull base to the T4 level. Sagittal and coronal r eformats were then constructed. For radiation dose reduction, the following was used: automated exp osure control, adjustment of mA and/or kV according to patient size. COMPARISON: None. FINDINGS: Image quality: Excellent. Bones: No fractures or dislocations. Visualized superior ribs are intact. Degenerative disc diseas e with disc space narrowing and osteophytes at C3-4 C5-6, C6-7, and C7-T1. Soft tissues: Prevertebral soft tissues are normal in thickness. No paravertebral hematomas. No ap ical pneumothoraces. IMPRESSION: 1. No acute traumatic abnormality of the cervical spine. 2. Multilevel degenerative disc disease. Reviewed by: Mikael Ford on 02/22/2022 7:25 PM PST Approved by: Mikael Ford on 02/22/2022 7:25 PM [facility] Station ID: [id number]
--- NOTE | 2022-02-22 19:28 | CT Report ---
PROCEDURE: HEAD WO INDICATIONS: head inj TECHNIQUE: Noncontrast 4.5 mm thick angled axial sections acquired from the foramen magnum to the vertex. For r adiation dose reduction, the following was used: automated exposure control, adjustment of mA and/or kV according to patient size. COMPARISON: None. FINDINGS: Image quality: Excellent. CSF spaces: Basal cisterns are patent. No extra-axial fluid collections. Ventricles are normal in size and shape. Brain: No midline shift. No intracranial masses or hemorrhage. Sandhu-white matter interface is norm al. Skull and face: Calvarium and visualized facial bones are intact, without suspicious lesions. Sinuses: Visualized sinuses and mastoids are clear. IMPRESSION: 1. No acute intracranial abnormality. 2. Microvascular ischemic disease and age-related cerebral volume loss. Reviewed by: Mikael Ford on 02/22/2022 7:27 PM [facility] Approved by: Mikael Ford on 02/22/2022 7:27 PM [facility] Station ID: [id number]
[2022-02-22 20:06] VITALS: BP 150/96
== END 2022-02-22 20:04 | disposition home or self-care (01) ==
LOC: EDUNIT# → ED 18:45
DX: S09.90XA Unspecified injury of head, initial encounter (principal); S50.01XA Contusion of right elbow, initial encounter; S51.011A Laceration without foreign body of right elbow, initial encounter; S61.411A Laceration without foreign body of right hand, initial encounter; W19.XXXA Unspecified fall, initial encounter; E11.9 Type 2 diabetes mellitus without complications; Z79.4 Long term (current) use of insulin; G20 Parkinson's disease; Z91.81 History of falling
CPT/HCPCS: 99282; 99284

== ENCOUNTER 2022-06-19 11:25 | Outpatient (CLI) | payer MEDICARE, OTHER ==
[2022-06-19 17:47] LABS: BASOPHILS # (AUTO) 0.1 10^3/uL (0.0-0.1); BASOPHILS % (AUTO) 0.6 %; EOSINOPHILS # (AUTO) 0.3 10^3/uL (0.0-0.7); EOSINOPHILS % (AUTO) 3.6 %; HCT - HEMATOCRIT 38.3 % (42.0-52.0); HGB - HEMOGLOBIN 11.8 g/dL (14.0-18.0); LYMPHOCYTES # (AUTO) 2.7 10^3/uL (1.5-3.5); LYMPHOCYTES % (AUTO) 31.9 %; MEAN CORPUSCULAR HEMOGLOBIN 28.5 pg (27.0-31.0); MEAN CORPUSCULAR HGB CONC 30.8 g/dL (32.0-36.0); MEAN CORPUSCULAR VOLUME 92.5 fL (80.0-94.0); MEAN PLATELET VOLUME 13.2 fL (7.4-11.4); MONOCYTES # (AUTO) 0.5 10^3/uL (0.0-1.0); MONOCYTES % (AUTO) 5.6 %; NEUTROPHILS # (AUTO) 4.7 10^3/uL (1.5-6.6); NEUTROPHILS % (AUTO) 55.4 %; PLT - PLATELET COUNT 228 10^3/uL (130-450); RED BLOOD COUNT 4.14 10^6/uL (4.70-6.10); RED CELL DISTRIBUTION WIDTH 13.3 % (12.0-15.0); WHITE BLOOD COUNT 8.4 x10^3/uL (4.8-10.8)
[2022-06-19 18:07] LABS: ALBUMIN 3.7 g/dL (3.2-5.5); ALBUMIN/GLOBULIN RATIO 1.1 (1.0-2.2); ALT ALANINE AMINOTRANSFERASE < 10 IU/L (10-60); AST ASPARTATE AMINOTRANSFERASE 10 IU/L (10-42); BILIRUBIN,TOTAL 0.4 mg/dL (0.2-1.0); BUN - BLOOD UREA NITROGEN 24 mg/dL (6-20); CALCIUM 9.4 mg/dL (8.5-10.3); CARBON DIOXIDE - CO2 26 mmol/L (21-32); CHLORIDE 105 mmol/L (101-111); CHOL/HDL RATIO 4.3 (<5.0); CHOLESTEROL 149 mg/dL; CREATININE 1.3 mg/dL (0.6-1.2); GFR - MDRD 52 (>89); GLUCOSE 145 mg/dL (70-100); HDL CHOLESTEROL 35 mg/dL; LDL CHOLESTEROL,CALCULATED 88 mg/dL; LDL/HDL RATIO 2.5 (<3.6); POTASSIUM 4.2 mmol/L (3.5-5.0); SODIUM 141 mmol/L (135-145); TRIGLYCERIDES 130 mg/dL; VLDL CHOLESTEROL 26 mg/dL
[2022-06-19 18:27] LABS: ALKALINE PHOSPHATASE 64 IU/L (42-121)
[2022-06-19 20:56] LABS: ESTIMATED AVERAGE GLUCOSE 209 mg/dL (70-100); HEMOGLOBIN A1c% 8.9 % (4.27-6.07)
== END 2022-06-19 11:26 | disposition home or self-care (01) ==
LOC: LAB.N 11:25
PROVIDERS: ATTEND Physician Assistant Medical
DX: E78.5 Hyperlipidemia, unspecified (principal); E11.29 Type 2 diabetes mellitus with other diabetic kidney complication; K21.9 Gastro-esophageal reflux disease without esophagitis
CPT/HCPCS: 36415; 80053; 80061; 83036; 83721; 85025

== ENCOUNTER 2022-09-19 12:21 | Outpatient (CLI) | payer MEDICARE, OTHER ==
[2022-09-19 19:18] LABS: CALCIUM 9.6 mg/dL (8.5-10.3); CREATININE 1.6 mg/dL (0.6-1.2); POTASSIUM 4.2 mmol/L (3.5-5.0)
[2022-09-19 20:51] LABS: ESTIMATED AVERAGE GLUCOSE 200 mg/dL (70-100); HEMOGLOBIN A1c% 8.6 % (4.27-6.07)
== END 2022-09-19 12:22 | disposition home or self-care (01) ==
LOC: LAB.N 12:21
PROVIDERS: ATTEND Physician Assistant Medical
DX: E11.29 Type 2 diabetes mellitus with other diabetic kidney complication (principal)
CPT/HCPCS: 36415; 80048; 83036

== ENCOUNTER 2022-11-30 08:00 | Outpatient (CLI) | payer MEDICARE, OTHER ==
[2022-11-30 18:15] LABS: BILIRUBIN,URINE NEGATIVE (NEGATIVE); GLUCOSE, URINE (UA) NEGATIVE (NEGATIVE); KETONES,URINE (UA) NEGATIVE (NEGATIVE); LEUKOCYTE ESTERASE, URINE NEGATIVE (NEGATIVE); NITRITE,URINE NEGATIVE (NEGATIVE); OCCULT BLOOD,URINE NEGATIVE (NEGATIVE); PROTEIN,URINE NEGATIVE (NEGATIVE); UROBILINOGEN,URINE 0.2 (NORMAL) E.U./dL (NORMAL)
[2022-11-30 18:27] LABS: BACTERIA,URINE None Seen /HPF (None Seen); CLARITY,URINE CLEAR (CLEAR); RBC,URINE 0-5 /HPF (0-5); SQUAMOUS EPITHELIAL CELL,UR RARE Squamous (<= Few); WBC,URINE 0-3 /HPF (0-3)
== END 2022-11-30 23:58 | disposition home or self-care (01) ==
LOC: LAB.R 08:00
PROVIDERS: ATTEND Physician Assistant
DX: R30.0 Dysuria (principal)
CPT/HCPCS: 81001; 87086

== ENCOUNTER 2023-01-18 14:03 | Outpatient (CLI) | payer MEDICARE, OTHER | END 2023-01-18 14:04 | disposition EMS.NT | LOC: EMS 14:03 | DX: E11.649 Type 2 diabetes mellitus with hypoglycemia without coma (principal); Z79.4 Long term (current) use of insulin ==

== ENCOUNTER 2023-01-19 10:24 | Outpatient (CLI) | payer MEDICARE, OTHER | END 2023-01-19 10:25 | disposition EMS.NT | LOC: EMS 10:24 | DX: Z03.89 Encounter for observation for other suspected diseases and conditions ruled out (principal) ==

== ENCOUNTER 2023-02-14 13:56 | Outpatient (CLI) | payer MEDICARE, OTHER | END 2023-02-14 13:57 | disposition critical access hospital (66) | LOC: EMS 13:56 | DX: R41.82 Altered mental status, unspecified (principal) | CPT/HCPCS: A0425; A0427 ==

== ENCOUNTER 2023-02-14 14:14 | Emergency (ER) | payer MEDICARE, OTHER ==
[2023-02-14] MEDS ORDERED: SODIUM CHLORIDE 0.9% 1,000 ML IV STA ×2 (14:19)
--- NOTE | 2023-02-14 14:22 | ED Physician Documentation ---
History of Present Illness - Stated complaint Stated Complaint: AMS - History obtained from History obtained from: Patient, EMS - History of Present Illness Timing: Today Pain level max: 0 Pain level now: 0 - Additonal information Additional information: 87-year-old male, history of dementia and blindness presents to the emergency department with being "less responsive" than usual today. EMS states he was GCS 15 upon their arrival, alert and oriented. Patient has no complaints. His told EMS that his urine has been darker than usual. He has not been taking his medications as prescribed. No fevers. No chills. No vomiting. No diarrhea. No constipation. No chest pain. No falls. No head injury. Review of Systems Unable to obtain: Dementia Constitutional: denies: Fever, Chills Ears: denies: Ear pain Throat: denies: Sore throat Cardiac: denies: Chest pain / pressure, Palpitations Respiratory: denies: Dyspnea, Cough GI: denies: Nausea, Vomiting, Diarrhea : denies: Dysuria Skin: denies: Rash Musculoskeletal: denies: Neck pain, Back pain, Extremity pain Neurologic: denies: Seizure, Headache, Head injury, LOC PD PAST MEDICAL HISTORY - Past Medical History Cardiovascular: Hypertension Respiratory: None Neuro: Parkinson's Endocrine/Autoimmune: Type 2 diabetes Musculoskeletal: Other - Past Surgical History Past Surgical History: Yes - Present Medications Home Medications: Ambulatory Orders Medication Instructions Recorded Confirmed Carbidopa/Levodopa [Carbidopa-Levo 100 mg PO QID 03/11/17 05/31/22 ER 25-100 Tab] Fenofibrate 160 mg PO DAILY 03/11/17 05/31/22 Insulin Aspart [NovoLOG] 8 - 14 units SUBQ AC 03/11/17 05/31/22 Insulin Glargine [Lantus Solostar] 24 units SUBQ QDBREAKFAST 03/11/17 05/31/22 Simvastatin 40 mg PO QPM 03/11/17 05/31/22 Latanoprost 0.005% Ophth Drops 1 drops EACHEYE QPM 10/10/20 05/31/22 [Xalatan Ophth Drops] SITagliptin [Januvia] 100 mg PO DAILY 10/10/20 05/31/22 Timolol 0.5% Ophth Drops [Timoptic 1 drops EACHEYE BID 10/10/20 05/31/22 0.5% Ophth Drops] cephALEXin [Keflex] 500 mg PO Q6H #28 cap 02/14/23 - Allergies Allergies/Adverse Reactions: Allergies Allergy/AdvReac Type Severity Reaction Status Date / Time No Known Drug Allergies Allergy Verified 02/14/23 15:38 - Social History Does the pt smoke?: No Smoking Status: Never smoker Does the pt have substance abuse?: No - POLST Patient has POLST: No PD ED PE NORMAL - Vitals Vital signs reviewed: Yes - General General: Alert and oriented X 3, No acute distress - HEENT HEENT: PERRL, Moist mucous membranes - Neck Neck: Supple, no meningeal sign - Cardiac Cardiac: RRR, Strong equal pulses - Respiratory Respiratory: No respiratory distress, Clear bilaterally - Abdomen Abdomen: Soft, Non tender, Non distended - Back Back: No CVA TTP, No spinal TTP - Derm Derm: Warm and dry - Extremities Extremities: No edema, No calf tenderness / cord - Neuro Neuro: Alert and oriented X 3 - Psych Psych: Normal mood, Normal affect Results - Vitals Vitals: Vital Signs - 24 hr 02/14/23 02/14/23 14:21 16:04 Temperature 36.5 C Heart Rate 58 L 66 Respiratory 18 18 Rate Blood Pressure 154/62 H 150/53 H O2 Saturation 96 96 Oxygen O2 Source Room air - Labs Labs: Laboratory Tests 02/14/23 02/14/23 02/14/23 14:22 14:22 15:34 WBC 9.5 RBC 4.21 L Hgb 11.6 L Hct 37.9 L MCV 90.0 MCH 27.6 MCHC 30.6 L RDW 13.0 Plt Count 252 MPV 10.5 Neut # (Auto) 5.5 Lymph # (Auto) 2.6 [place] # (Auto) 0.8 Eos # (Auto) 0.3 Baso # (Auto) 0.1 Absolute Nucleated RBC 0.00 Nucleated RBC % 0.0 Sodium 141 Potassium 4.1 Chloride 103 Carbon Dioxide 28 Anion Gap 10.0 BUN 26 H Creatinine 1.3 Estimated GFR (MDRD) 52 L Glucose 177 H Calcium 9.2 Total Bilirubin 0.4 AST 5 L ALT 3 L Alkaline Phosphatase 67 Total Protein 6.4 Albumin 3.8 Globulin 2.6 Albumin/Globulin Ratio 1.5 Lipase 35 Urine Color DARK YELLOW Urine Clarity CLOUDY Urine pH 6.0 Ur Specific [place] 1.020 Urine Protein 30 H Urine Glucose (UA) NEGATIVE Urine Ketones NEGATIVE Urine Occult Blood LARGE H Urine Nitrite NEGATIVE Urine Bilirubin NEGATIVE Urine Urobilinogen 1 (NORMAL) Ur Leukocyte Esterase NEGATIVE Urine RBC 11-25 H Urine WBC 4-5 Ur Squamous Epith Cells RARE Squamous Urine Bacteria Rare Urine Casts 0-2 Hyaline Casts Ur Microscopic Review INDICATED Urine Culture Comments NOT INDICATED PD Medical Decision Making - ED course Complexity details: reviewed results, re-evaluated patient, considered differential, d/w patient, d/w family ED course: Patient is awake, alert, at his mental baseline here. We will treat for UTI. Given IV fluids for dehydration. Recommend that he follow-up with his PCP next week as scheduled. No indication for admission at this time. No evidence of fever, sepsis. Discussed with planning for in-home caregivers, possible dementia unit placement if his hallucinations should worsen and possible palliative care referral. Social work is gone for the day, she does have an appointment already next week that she can discuss these issues with her PCP. Patient is GCS 15. Patient counseled regarding signs and symptoms for which I believe and urgent re-evaluation would be necessary. Patient with good under standing of and agreement to plan and is comfortable going home at this time This document was made in part using voice recognition software. While efforts are made to proofread this document, sound alike and grammatical errors may occur. Departure - Departure Disposition: 01 Home, Self Care Clinical Impression: Dehydration UTI (urinary tract infection) Qualifiers: Urinary tract infection type: acute cystitis Hematuria presence: without hematuria Qualified Code(s): N30.00 - Acute cystitis without hematuria Dementia Qualifiers: Dementia type: unspecified type Dementia severity: unspecified severity Dementia behavioral or psychological symptom: without behavioral, psychotic, or mood disturbance or anxiety Qualified Code(s): F03.90 - Unspecified dementia, unspecified severity, without behavioral disturbance, psychotic disturbance, mood disturbance, and anxiety Pressure injury of buttock, unstageable Qualifiers: Laterality: unspecified laterality Qualified Code(s): L89.300 - Pressure ulcer of unspecified buttock, unstageable Condition: Good Instructions: ED Dehydration, ED UTI Cystitis Male Follow-Up: Jennifer Bernal PA-C [Primary Care Provider] - Within 1 week Prescriptions: cephALEXin [Keflex] 500 mg PO Q6H #28 cap Comments: [facility] prescription was [facility]. Take all antibiotics until gone. Please discuss with your primary care provider at your appointment next week Home health/ childbirth and infant care teacher planning in case he needs placement for his dementia, and a possible palliative care referral. You can call the main hospital number at [phone] and ask for palliative care.
[2023-02-14 14:28] LABS: BASOPHILS # (AUTO) 0.1 10^3/uL (0.0-0.1); BASOPHILS % (AUTO) 0.5 %; EOSINOPHILS # (AUTO) 0.3 10^3/uL (0.0-0.7); EOSINOPHILS % (AUTO) 3.6 %; HCT - HEMATOCRIT 37.9 % (42.0-52.0); HGB - HEMOGLOBIN 11.6 g/dL (14.0-18.0); LYMPHOCYTES # (AUTO) 2.6 10^3/uL (1.5-3.5); LYMPHOCYTES % (AUTO) 27.3 %; MEAN CORPUSCULAR HEMOGLOBIN 27.6 pg (27.0-31.0); MEAN CORPUSCULAR HGB CONC 30.6 g/dL (32.0-36.0); MEAN PLATELET VOLUME 10.5 fL (7.4-11.4); MONOCYTES # (AUTO) 0.8 10^3/uL (0.0-1.0); MONOCYTES % (AUTO) 8.5 %; NEUTROPHILS # (AUTO) 5.5 10^3/uL (1.5-6.6); NEUTROPHILS % (AUTO) 57.5 %; PLT - PLATELET COUNT 252 10^3/uL (130-450); RED BLOOD COUNT 4.21 10^6/uL (4.70-6.10); WHITE BLOOD COUNT 9.5 x10^3/uL (4.8-10.8)
[2023-02-14 14:38] VITALS: O2SAT 96
[2023-02-14 14:51] LABS: ALBUMIN 3.8 g/dL (3.2-5.5); ALBUMIN/GLOBULIN RATIO 1.5 (1.0-2.2); BILIRUBIN,TOTAL 0.4 mg/dL (0.2-1.0); CALCIUM 9.2 mg/dL (8.5-10.3); CREATININE 1.3 mg/dL (0.6-1.3); POTASSIUM 4.1 mmol/L (3.5-4.5); TOTAL PROTEIN 6.4 g/dL (6.4-8.9)
--- NOTE | 2023-02-14 14:59 | XRAY Report ---
PROCEDURE: Chest 1 View X-Ray INDICATIONS: cough TECHNIQUE: One view of the chest was acquired. COMPARISON: None. FINDINGS: Surgical changes and devices: None. Lungs and pleura: No pleural effusions or pneumothorax. Lungs are clear. Mediastinum: Mediastinal contours appear normal. Heart size is normal. Bones and chest wall: No suspicious bony lesions. Overlying soft tissues appear unremarkable. IMPRESSION: No acute cardiopulmonary process. Reviewed by: Edson Parish MD on 02/14/2023 2:57 PM PST Approved by: Edson Parish MD on 02/14/2023 2:57 PM PST Station ID: [id number]
[2023-02-14 15:46] LABS: BILIRUBIN,URINE NEGATIVE (NEGATIVE); GLUCOSE, URINE (UA) NEGATIVE (NEGATIVE); KETONES,URINE (UA) NEGATIVE (NEGATIVE); LEUKOCYTE ESTERASE, URINE NEGATIVE (NEGATIVE); NITRITE,URINE NEGATIVE (NEGATIVE); OCCULT BLOOD,URINE LARGE (NEGATIVE); PROTEIN,URINE 30 mg/dL (NEGATIVE); UROBILINOGEN,URINE 1 (NORMAL) E.U./dL (NORMAL)
[2023-02-14 15:48] LABS: CLARITY,URINE CLOUDY (CLEAR)
[2023-02-14 15:52] LABS: BACTERIA,URINE Rare /HPF (None Seen); CASTS, URINE 0-2 Hyaline Casts /LPF; SQUAMOUS EPITHELIAL CELL,UR RARE Squamous (<= Few)
[2023-02-14] MEDS ORDERED: cefTRIAXone 1 GM VIAL IVP STA (16:22)
[2023-02-14 17:24] VITALS: BP 133/59
== END 2023-02-14 17:20 | disposition home or self-care (01) ==
LOC: EDUNIT# → ED 14:14
DX: N30.00 Acute cystitis without hematuria (principal); E86.0 Dehydration; G20.A1 Parkinson's disease without dyskinesia, without mention of fluctuations; L89.309 Pressure ulcer of unspecified buttock, unspecified stage; F02.80 Dementia in other diseases classified elsewhere, unspecified severity, without behavioral disturbance, psychotic disturbance, mood disturbance, and anxiety; I10 Essential (primary) hypertension; E11.9 Type 2 diabetes mellitus without complications; Z79.899 Other long term (current) drug therapy; Z79.4 Long term (current) use of insulin
CPT/HCPCS: 36415; 80053; 81001; 81003; 83690; 85025; 87086; 96361; 96374; 99284

== ENCOUNTER 2023-03-02 15:55 | Outpatient (CLI) | payer MEDICARE, OTHER | END 2023-03-02 15:56 | disposition critical access hospital (66) | LOC: EMS 15:55 | DX: R46.89 Other symptoms and signs involving appearance and behavior (principal); R44.3 Hallucinations, unspecified | CPT/HCPCS: A0425; A0429 ==

== ENCOUNTER 2023-03-02 16:09 | Emergency (ER) | payer MEDICARE, OTHER ==
--- NOTE | 2023-03-02 16:11 | ED Physician Documentation ---
PD HPI ALTERED MENTAL STATUS - Stated complaint Stated Complaint: AGGRESSIVE - History obtained from History obtained from: Family (spouse), EMS - History of Present Illness Timing - onset: How many days ago (spouse says patient has been acting anxious. He states he has felt upset easily and got angry today, yelling at . She was afraid he would hit her. No physical activity from pt. He states he has been having visual hallucinations, believing seeing people not there. 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 No: Fever, Headache, Stiff neck Contributing factors: No: Diabetic, Recent med change, Recent illness Basline status: Alert and oriented X 3, Ambulatory Similar symptoms before: Has not had sx before Review of Systems Constitutional: denies: Fever, Chills Nose: denies: Rhinorrhea / runny nose, Congestion Throat: denies: Sore throat Respiratory: denies: Cough GI: denies: Vomiting, Diarrhea Neurologic: denies: Headache Psychiatric: reports: Anxiety PD PAST MEDICAL HISTORY - Past Medical History Cardiovascular: Hypertension Respiratory: None Neuro: Parkinson's Endocrine/Autoimmune: Type 2 diabetes Musculoskeletal: Other - Past Surgical History Past Surgical History: Yes - Present Medications Home Medications: Ambulatory Orders Medication Instructions Recorded Confirmed Carbidopa/Levodopa [Carbidopa-Levo 100 mg PO QID 03/11/17 05/31/22 ER 25-100 Tab] Insulin Aspart [NovoLOG] 8 - 14 units SUBQ AC 03/11/17 05/31/22 Insulin Glargine [Lantus Solostar] 24 units SUBQ QDBREAKFAST 03/11/17 05/31/22 Simvastatin 40 mg PO QPM 03/11/17 05/31/22 Latanoprost 0.005% Ophth Drops 1 drops EACHEYE QPM 10/10/20 05/31/22 [Xalatan Ophth Drops] SITagliptin [Januvia] 100 mg PO DAILY 10/10/20 05/31/22 Timolol 0.5% Ophth Drops [Timoptic 1 drops EACHEYE BID 10/10/20 05/31/22 0.5% Ophth Drops] Donepezil [Aricept] 10 mg PO DAILY 03/02/23 03/02/23 Pantoprazole [Protonix] 40 mg PO DAILY 03/02/23 03/02/23 QUEtiapine [SEROquel] 25 mg PO QPM #10 tablet 03/02/23 hydrOXYzine HCL [Hydroxyzine HCl] 25 mg PO 03/02/23 - Allergies Allergies/Adverse Reactions: Allergies Allergy/AdvReac Type Severity Reaction Status Date / Time No Known Drug Allergies Allergy Verified 03/02/23 16:21 - Social History Does the pt smoke?: No Smoking Status: Never smoker Does the pt have substance abuse?: No - POLST Patient has POLST: No PD ED PE NORMAL - Vitals Vital signs reviewed: Yes - General General: Alert and oriented X 3, No acute distress, Well developed/nourished - HEENT HEENT: Atraumatic - Neck Neck: Supple, no meningeal sign, No adenopathy - Cardiac Cardiac: RRR, No murmur - Respiratory Respiratory: Clear bilaterally - Abdomen Abdomen: Soft, Non tender - Derm Derm: Normal color, Warm and dry - Neuro Neuro: Alert and oriented X 3, No motor deficit, No sensory deficit Results - Vitals Vitals: Vital Signs - 24 hr 03/02/23 03/02/23 03/02/23 16:09 18:26 19:00 Temperature 36.5 C Heart Rate 57 L 51 L 52 L Respiratory 16 16 Rate Blood Pressure 111/56 L 160/61 H 154/88 H O2 Saturation 97 100 99 03/02/23 19:30 Temperature Heart Rate 59 L Respiratory 22 Rate Blood Pressure 131/90 H O2 Saturation 100 Oxygen O2 Source Room air - Labs Labs: Laboratory Tests 03/02/23 03/02/23 03/02/23 16:37 16:37 16:37 WBC 11.3 H RBC 3.69 L Hgb 10.2 L Hct 32.9 L MCV 89.2 MCH 27.6 MCHC 31.0 L RDW 13.2 Plt Count 235 MPV 10.5 Neut # (Auto) 5.6 Lymph # (Auto) 3.0 [place] # (Auto) 1.0 Eos # (Auto) 0.9 H Baso # (Auto) 0.1 Absolute Nucleated RBC 0.00 Band Neuts % (Manual) Not Reportable Abnorm Lymph % (Manual) Not Reportable Nucleated RBC % 0.0 Neutrophils # (Manual) Not Reportable Lymphocytes # (Manual) Not Reportable Monocytes # (Manual) Not Reportable Eosinophils # (Manual) Not Reportable Basophils # (Manual) Not Reportable Differential Comment MANUAL=AUTO DIFF WBC Morphology NORMAL APPEARANCE Platelet Estimate NORMAL (130-450,000) Platelet Morphology NORMAL APPEARANCE RBC Morph Micro Appear NORMAL APPEARANCE ESR Sodium 140 Potassium 3.5 Chloride 105 Carbon Dioxide 28 Anion Gap 7.0 BUN 20 Creatinine 1.1 Estimated GFR (MDRD) 63 L Glucose 160 H Calcium 9.4 Magnesium 1.4 L Total Bilirubin 0.3 AST 5 L ALT < 3 L Alkaline Phosphatase 69 Total Protein 5.9 L Albumin 3.5 Globulin 2.4 Albumin/Globulin Ratio 1.5 Lipase 34 Vitamin B12 240 03/02/23 16:37 WBC RBC Hgb Hct MCV MCH MCHC RDW Plt Count MPV Neut # (Auto) Lymph # (Auto) [place] # (Auto) Eos # (Auto) Baso # (Auto) Absolute Nucleated RBC Band Neuts % (Manual) Abnorm Lymph % (Manual) Nucleated RBC % Neutrophils # (Manual) Lymphocytes # (Manual) Monocytes # (Manual) Eosinophils # (Manual) Basophils # (Manual) Differential Comment WBC Morphology Platelet Estimate Platelet Morphology RBC Morph Micro Appear ESR 28 H Sodium Potassium Chloride Carbon Dioxide Anion Gap BUN Creatinine Estimated GFR (MDRD) Glucose Calcium Magnesium Total Bilirubin AST ALT Alkaline Phosphatase Total Protein Albumin Globulin Albumin/Globulin Ratio Lipase Vitamin B12 - Rads (name of study) head CT Relevant Findings:: Prelim report reviewed (no acute abnormaltiy), EMP independent interpretation of test PD Medical Decision Making - ED course Complexity details: considered differential (he has been anxious and feeling easily upset. Yelled at his which is unusual. Has had visual hallucinations. COnsider brain issue, sodium, med effect (can be side effect of carba/leva dopa), or mirage effect of retinopathy. ), d/w patient ED course: subsequent normal CT, lytes ayad sodium normal, glucose okay, has not had change in meds, but hallucinations could be side effect of his parkinsons med. and patient concerned about his agitation. No indications for admission. He is feeling easily upset but not really psychiatric. Shared discussion with pt and is to treat with short term, low dose med for sleep/anxiety pending ability to discuss with his neurologist. Departure - Departure Disposition: 01 Home, Self Care Clinical Impression: Nontraumatic subdural hygroma, Parkinsons disease, Visual hallucinations, Agitation Condition: Stable Record reviewed to determine appropriate education?: Yes Follow-Up: Jennifer Bernal PA-C [Primary Care Provider] - Prescriptions: QUEtiapine [SEROquel] 25 mg PO QPM #10 tablet Comments: We did do a CT scan of the head and there was a small fluid collection under the area on the left side that has been present slightly a year ago on a prior scan but has increased size to a little bit. This is called a subdural hygroma. It is not an acute bleed. There is no signs of tumor or aneurysm. We did have a neurosurgeon from [facility] review the pictures just now this evening and no intervention or treatment is needed given the small size of it in the duration of it. No other acute abnormality to account for the hallucinations visual or emotional disturbance. Basic blood tests are looking okay. Considerations can be a side effect of the carbidopa levodopa with hallucinations and some anxiety being side effects of those. I realize you have been on the same dose for a while but your metabolism may have changed or hydration level. I would suggest for now decreasing to 3 doses a day instead of 4 until you are able to talk with your neurologist this coming week. In the short-term we can also add a medication at night to help with anxiety in general and sleep. I would not want to prescribe this longer term but he can be a short-term help until again you can talk with your neurologist about other ideas. Hope your symptoms will improve with these over the next few days. Stay well- hydrated and continue her other usual medicines. Other consideration on the visual hallucinations can also be just a retinal abnormality. With your retinopathy and macular abnormalities leading to your vision impairment, there can be visual distortions that occur and as a result your brain will try to interpret them as something it can identify and lead to visual hallucinations. This would be also a potential discussion if you are neurologist does not necessarily believe the carbidopa, leap levodopa is causing the symptoms or if they are not really improved by decreasing the dose. I sent your prescription to the [facility] pharmacy. Return as needed. Discharge Date/Time: 03/02/23 19:57
[2023-03-02] MEDS ORDERED: SODIUM CHLORIDE 0.9% 1,000 ML IV STA (16:29)
[2023-03-02 16:43] LABS: BASOPHILS # (AUTO) 0.1 10^3/uL (0.0-0.1); BASOPHILS % (AUTO) 0.6 %; EOSINOPHILS # (AUTO) 0.9 10^3/uL (0.0-0.7); EOSINOPHILS % (AUTO) 8.2 %; HCT - HEMATOCRIT 32.9 % (42.0-52.0); HGB - HEMOGLOBIN 10.2 g/dL (14.0-18.0); LYMPHOCYTES % (AUTO) 26.6 %; MEAN CORPUSCULAR HEMOGLOBIN 27.6 pg (27.0-31.0); MEAN CORPUSCULAR VOLUME 89.2 fL (80.0-94.0); MEAN PLATELET VOLUME 10.5 fL (7.4-11.4); MONOCYTES % (AUTO) 9.1 %; NEUTROPHILS # (AUTO) 5.6 10^3/uL (1.5-6.6); NEUTROPHILS % (AUTO) 49.3 %; PLT - PLATELET COUNT 235 10^3/uL (130-450); RED BLOOD COUNT 3.69 10^6/uL (4.70-6.10); RED CELL DISTRIBUTION WIDTH 13.2 % (12.0-15.0); WHITE BLOOD COUNT 11.3 x10^3/uL (4.8-10.8)
[2023-03-02 17:04] LABS: ALBUMIN 3.5 g/dL (3.2-5.5); LIPASE 34 U/L (11-82)
[2023-03-02 17:05] LABS: ALBUMIN/GLOBULIN RATIO 1.5 (1.0-2.2); ALKALINE PHOSPHATASE 69 IU/L (42-121); ALT ALANINE AMINOTRANSFERASE < 3 IU/L (10-60); AST ASPARTATE AMINOTRANSFERASE 5 IU/L (10-42); BILIRUBIN,TOTAL 0.3 mg/dL (0.2-1.0); BUN - BLOOD UREA NITROGEN 20 mg/dL (6-20); CALCIUM 9.4 mg/dL (8.5-10.3); CARBON DIOXIDE - CO2 28 mmol/L (21-32); CHLORIDE 105 mmol/L (101-111); CREATININE 1.1 mg/dL (0.6-1.3); GFR - MDRD 63 (>89); GLUCOSE 160 mg/dL (74-104); POTASSIUM 3.5 mmol/L (3.5-4.5); SODIUM 140 mmol/L (135-145); TOTAL PROTEIN 5.9 g/dL (6.4-8.9)
[2023-03-02] MEDS ORDERED: MAGNESIUM SULFATE 2 GRAM 2 GM/50 ML BAG IV ONE (17:25)
[2023-03-02 17:27] LABS: PLATELET ESTIMATE, MANUAL NORMAL (130-450,000) (NORMAL); PLATELET MORPHOLOGY NORMAL APPEARANCE (NORMAL); RBC MORPHOLOGY (MULTIPLE) NORMAL APPEARANCE (NORMAL); WBC MORPHOLOGY (MULTIPLE) NORMAL APPEARANCE (NORMAL)
[2023-03-02 17:28] LABS: DIFFERENTIAL COMMENT MANUAL=AUTO DIFF
--- NOTE | 2023-03-02 18:04 | CT Report ---
PROCEDURE: HEAD WO INDICATIONS: visual distortions/hallucinations few days TECHNIQUE: Noncontrast 4.5 mm thick angled axial sections acquired from the foramen magnum to the vertex. For r adiation dose reduction, the following was used: automated exposure control, adjustment of mA and/or kV according to patient size. COMPARISON: CT 02/22/2022 FINDINGS: Image quality: Excellent. CSF spaces: Chronic, isoattenuating collection over the left cerebellum compared with 02/22/2022. Max imum diameter of 5 mm (series 5, image 38). Brain: No midline shift. No intracranial masses or hemorrhage. Sandhu-white matter interface is norm al. Leukoaraiosis, commonly caused by chronic small vessel ischemic disease. Age-related volume loss . Skull and face: Calvarium and visualized facial bones are intact, without suspicious lesions. Sinuses: Visualized sinuses and mastoids are clear. IMPRESSION: Chronic subdural hematoma versus cystic hygroma overlying the left cerebral convexity. No midline darien ft or herniation. Findings were discussed with Dr. Sage at time of dictation. Reviewed by: Jim Berrios on 03/02/2023 5:03 PM [facility] Approved by: Jim Berrios on 03/02/2023 5:03 PM [facility] Station ID: [id number]
[2023-03-02] MEDS ORDERED: QUEtiapine 25 MG TABLET PO STA (19:24)
[2023-03-02 20:09] VITALS: BP 131/90; O2SAT 100
== END 2023-03-02 19:57 | disposition home or self-care (01) ==
LOC: EDUNIT# → ED 16:09
DX: G96.00 Cerebrospinal fluid leak, unspecified (principal); G20.A1 Parkinson's disease without dyskinesia, without mention of fluctuations; R44.1 Visual hallucinations; R45.1 Restlessness and agitation; I10 Essential (primary) hypertension; E11.9 Type 2 diabetes mellitus without complications; Z79.899 Other long term (current) drug therapy; Z79.4 Long term (current) use of insulin
CPT/HCPCS: 36415; 70450; 80053; 82607; 83690; 83735; 85025; 85651; 96365; 99284; A9270

== ENCOUNTER 2023-06-24 16:16 | Outpatient (CLI) | payer MEDICARE, OTHER ==
[2023-06-24 20:59] LABS: ESTIMATED AVERAGE GLUCOSE 160 mg/dL (70-100); HEMOGLOBIN A1c% 7.2 % (4.27-6.07)
[2023-06-24 21:05] LABS: CHOL/HDL RATIO 3.6 (<5.0); CHOLESTEROL 130 mg/dL; HDL CHOLESTEROL 36 mg/dL; LDL CHOLESTEROL,CALCULATED 66 mg/dL; LDL/HDL RATIO 1.8 (<3.6); TRIGLYCERIDES 138 mg/dL (48-352); VLDL CHOLESTEROL 28 mg/dL
[2023-06-24 21:58] LABS: GLUCOSE 48 mg/dL (74-104)
[2023-06-24 23:19] LABS: ALBUMIN 3.7 g/dL (3.2-5.5); ALBUMIN/GLOBULIN RATIO 1.5 (1.0-2.2); ALKALINE PHOSPHATASE 67 IU/L (42-121); ALT ALANINE AMINOTRANSFERASE 3 IU/L (10-60); AST ASPARTATE AMINOTRANSFERASE 6 IU/L (10-42); BILIRUBIN,TOTAL 0.3 mg/dL (0.2-1.0); BUN - BLOOD UREA NITROGEN 24 mg/dL (6-20); CALCIUM 9.9 mg/dL (8.5-10.3); CARBON DIOXIDE - CO2 30 mmol/L (21-32); CHLORIDE 106 mmol/L (101-111); CREATININE 1.4 mg/dL (0.6-1.3); GFR - MDRD 48 (>89); POTASSIUM 3.8 mmol/L (3.5-4.5); SODIUM 141 mmol/L (135-145); TOTAL PROTEIN 6.2 g/dL (6.4-8.9)
== END 2023-06-24 16:17 | disposition home or self-care (01) ==
LOC: LAB.N 16:16
PROVIDERS: ATTEND Physician Assistant Medical
DX: E11.29 Type 2 diabetes mellitus with other diabetic kidney complication (principal)
CPT/HCPCS: 36415; 80053; 80061; 83036; 83721

== ENCOUNTER 2023-07-15 08:00 | Outpatient (CLI) | payer MEDICARE, OTHER | END 2023-07-15 23:59 | disposition home or self-care (01) | LOC: PC 08:00 | PROVIDERS: ATTEND Nurse Practitioner Gerontology | DX: Z51.5 Encounter for palliative care (principal); G20.B1 Parkinson's disease with dyskinesia, without mention of fluctuations; L89.309 Pressure ulcer of unspecified buttock, unspecified stage; H57.89 Other specified disorders of eye and adnexa; F02.80 Dementia in other diseases classified elsewhere, unspecified severity, without behavioral disturbance, psychotic disturbance, mood disturbance, and anxiety; R60.0 Localized edema; H54.8 Legal blindness, as defined in USA; Z79.84 Long term (current) use of oral hypoglycemic drugs; Z79.4 Long term (current) use of insulin; E11.22 Type 2 diabetes mellitus with diabetic chronic kidney disease; N18.2 Chronic kidney disease, stage 2 (mild); Z91.81 History of falling; R32 Unspecified urinary incontinence | CPT/HCPCS: 99349 ==

== ENCOUNTER 2023-08-09 14:30 | Outpatient (CLI) | payer MEDICARE, OTHER | END 2023-08-09 23:59 | disposition home or self-care (01) | LOC: PC 14:30 | PROVIDERS: ATTEND Nurse Practitioner Gerontology | DX: Z51.5 Encounter for palliative care (principal); E11.22 Type 2 diabetes mellitus with diabetic chronic kidney disease; I12.9 Hypertensive chronic kidney disease with stage 1 through stage 4 chronic kidney disease, or unspecified chronic kidney disease; N18.2 Chronic kidney disease, stage 2 (mild); Z87.891 Personal history of nicotine dependence; Z79.4 Long term (current) use of insulin; Z79.84 Long term (current) use of oral hypoglycemic drugs; G20.A1 Parkinson's disease without dyskinesia, without mention of fluctuations; F02.B2 Dementia in other diseases classified elsewhere, moderate, with psychotic disturbance; L89.309 Pressure ulcer of unspecified buttock, unspecified stage; Z66 Do not resuscitate; Z91.81 History of falling; E11.319 Type 2 diabetes mellitus with unspecified diabetic retinopathy without macular edema; R01.1 Cardiac murmur, unspecified | CPT/HCPCS: 99350 ==

== ENCOUNTER 2023-09-18 13:09 | Outpatient (CLI) | payer MEDICARE, OTHER ==
[2023-09-18 18:09] LABS: CALCIUM 9.4 mg/dL (8.5-10.3); CREATININE 1.3 mg/dL (0.6-1.3); POTASSIUM 3.6 mmol/L (3.5-4.5)
[2023-09-18 20:40] LABS: ESTIMATED AVERAGE GLUCOSE 137 mg/dL (70-100); HEMOGLOBIN A1c% 6.4 % (4.27-6.07)
== END 2023-09-18 13:10 | disposition home or self-care (01) ==
LOC: LAB.N 13:09
PROVIDERS: ATTEND Physician Assistant Medical
DX: E11.29 Type 2 diabetes mellitus with other diabetic kidney complication (principal)
CPT/HCPCS: 36415; 80048; 83036

== ENCOUNTER 2023-10-07 14:27 | Outpatient (CLI) | payer MEDICARE, OTHER ==
--- NOTE | 2023-10-07 16:01 | XRAY Report ---
PROCEDURE: Knee 3V LT INDICATIONS: LEFT KNEE PAIN TECHNIQUE: 3 views of the knee(s) were acquired. COMPARISON: None. FINDINGS: Bones: No fractures or dislocations. Mild to moderate tricompartmental osteoarthritis is seen more n otably in medial and lateral femoral tibial compartments. No suspicious bony lesions. Soft tissues: No knee joint effusion. No suspicious soft tissue calcifications or masses. IMPRESSION: No acute bony abnormality. [id number] tricompartmental osteoarthritis. No significant joint effusion. Reviewed by: Alex Ross MD on 10/07/2023 3:59 PM PDT Approved by: Alex Ross MD on 10/07/2023 3:59 PM PDT Station ID: [id number]
== END 2023-10-07 14:28 | disposition home or self-care (01) ==
LOC: DI 14:27
PROVIDERS: ATTEND Physician Assistant Medical
DX: M17.12 Unilateral primary osteoarthritis, left knee (principal)

== ENCOUNTER 2023-10-13 12:32 | Outpatient (CLI) | payer MEDICARE, OTHER | END 2023-10-13 23:59 | disposition critical access hospital (66) | LOC: EMS 12:32 | DX: I95.9 Hypotension, unspecified (principal); L89.329 Pressure ulcer of left buttock, unspecified stage; L89.319 Pressure ulcer of right buttock, unspecified stage; R58 Hemorrhage, not elsewhere classified | CPT/HCPCS: A0425; A0427 ==

== ENCOUNTER 2023-10-13 12:50 | Emergency (ER) | payer MEDICARE, OTHER ==
--- NOTE | 2023-10-13 12:55 | ED Physician Documentation ---
History of Present Illness - Stated complaint Stated Complaint: BED SORES - History obtained from History obtained from: Patient, EMS - Additonal information Additional information: 88-year-old gentleman with history of parkinsonism, type 2 diabetes and chronic bedsores who is in wound care for same. Home health was out today and when they took down the dressings the wounds or wound started squirting blood and there was report from EMS that there was quite a bit of blood on scene. He also had transient hypotension with a systolic of 90 which is not his usual. Patient states that the wounds do not hurt anymore than normal. Denies fevers or chills. PD PAST MEDICAL HISTORY - Past Medical History Cardiovascular: Hypertension Respiratory: None Neuro: Parkinson's Endocrine/Autoimmune: Type 2 diabetes Musculoskeletal: Other - Past Surgical History Past Surgical History: Yes - Present Medications Home Medications: Ambulatory Orders Medication Instructions Recorded Confirmed Carbidopa/Levodopa [Carbidopa-Levo 1 tab PO TID 03/11/17 10/13/23 ER 25-100 Tab] Insulin Aspart [NovoLOG] 20 units SUBQ AC 03/11/17 09/24/23 Insulin Glargine [Lantus Solostar] 30 units SUBQ QDBREAKFAST 03/11/17 09/24/23 Simvastatin 40 mg PO QPM 03/11/17 10/13/23 Latanoprost 0.005% Ophth Drops 1 drops EACHEYE QPM 10/10/20 10/13/23 [Xalatan Ophth Drops] SITagliptin [Januvia] 100 mg PO DAILY 10/10/20 10/13/23 Timolol 0.5% Ophth Drops [Timoptic 1 drops EACHEYE BID 10/10/20 10/13/23 0.5% Ophth Drops] Donepezil [Aricept] 10 mg PO DAILY 03/02/23 10/13/23 Pantoprazole [Protonix] 40 mg PO DAILY 03/02/23 10/13/23 QUEtiapine [SEROquel] 25 mg PO QPM #10 tablet 03/02/23 10/13/23 hydrOXYzine HCL [Hydroxyzine HCl] 25 mg PO ONCE PRN 03/02/23 10/13/23 Fluocinolone Acetonide Oil [Flac 1 applic TOP PRN PRN 07/14/24 07/14/24 Otic Oil] Ipratropium [place] 1 inh INH DAILY 10/13/23 10/13/23 - Allergies Allergies/Adverse Reactions: Allergies Allergy/AdvReac Type Severity Reaction Status Date / Time No Known Drug Allergies Allergy Verified 03/02/23 16:21 - Social History Does the pt smoke?: No Smoking Status: Never smoker Does the pt have substance abuse?: No - POLST Patient has POLST: No PD ED PE NORMAL - Vitals Vital signs reviewed: Yes - General General: Alert and oriented X 3, Other (Course / significant parkinsonian tremor) - Derm Derm: Other (There is a large area of redness over the sacrum and buttocks consistent with a grade 1 pressure ulcer but then there is 2 small areas that are dime sized over each ischium that are a little deeper that look like they might have been recently bleeding but are currently hemostatic.) - Neuro Neuro: Alert and oriented X 3 Results - Vitals Vitals: Vital Signs - 24 hr 10/13/23 12:57 Temperature 36.2 C L Heart Rate 58 L Respiratory 20 Rate Blood Pressure 134/57 H O2 Saturation 97 Oxygen O2 Source Room air - Labs Labs: Laboratory Tests 10/13/23 10/13/23 13:00 13:00 WBC 8.7 RBC 3.19 L Hgb 8.6 L Hct 28.2 L MCV 88.4 MCH 27.0 MCHC 30.5 L RDW 13.2 Plt Count 195 MPV 10.9 Neut # (Auto) 5.1 Lymph # (Auto) 2.6 [place] # (Auto) 0.6 Eos # (Auto) 0.3 Baso # (Auto) 0.0 Absolute Nucleated RBC 0.00 Nucleated RBC % 0.0 Sodium 140 Potassium 3.8 Chloride 104 Carbon Dioxide 30 Anion Gap 6.0 BUN 26 H Creatinine 1.4 H Estimated GFR (MDRD) 48 L Glucose 145 H Calcium 9.1 Total Bilirubin 0.4 AST 3 L ALT < 3 L Alkaline Phosphatase 57 Total Protein 6.0 L Albumin 3.5 Globulin 2.5 Albumin/Globulin Ratio 1.4 PD Medical Decision Making - ED course ED course: He presents with resolved bleeding from pressure sore. It was described as a large amount of blood and he was modestly hypotensive on scene but here in the emergency department his blood pressure and other vital signs are reassuring. We did watch him for a bit and there is no further bleeding and we obtained blood counts which were notable for mild drop in his H&H. He usually runs a hemoglobin of about 10 and today it was 8.6. CMP showing chronic renal ins ufficiency without significant changes. at the bedside and understanding on need to follow-up in wound care and return precautions. Departure - Departure Disposition: 01 Home, Self Care Clinical Impression: Pressure injury of right buttock, stage 3, Pressure injury of left buttock, stage 3 Condition: Good Record reviewed to determine appropriate education?: Yes Instructions: ED Wound Care Follow-Up: Sheldon Lawson MD [Provider Admit Priv/Credential] - Comments: His blood counts did drop a bit today from the bleeding but not enough to need a transfusion or anything specific and we watched him for a few hours without any further bleeding. He should follow-up in wound care with Dr. Lawson. Return for new or worsening symptoms or if bleeding recurs.
[2023-10-13 13:15] LABS: BASOPHILS % (AUTO) 0.2 %; EOSINOPHILS # (AUTO) 0.3 10^3/uL (0.0-0.7); EOSINOPHILS % (AUTO) 3.1 %; HCT - HEMATOCRIT 28.2 % (42.0-52.0); HGB - HEMOGLOBIN 8.6 g/dL (14.0-18.0); LYMPHOCYTES # (AUTO) 2.6 10^3/uL (1.5-3.5); LYMPHOCYTES % (AUTO) 29.3 %; MEAN CORPUSCULAR HGB CONC 30.5 g/dL (32.0-36.0); MEAN CORPUSCULAR VOLUME 88.4 fL (80.0-94.0); MEAN PLATELET VOLUME 10.9 fL (7.4-11.4); MONOCYTES # (AUTO) 0.6 10^3/uL (0.0-1.0); MONOCYTES % (AUTO) 7.3 %; NEUTROPHILS # (AUTO) 5.1 10^3/uL (1.5-6.6); NEUTROPHILS % (AUTO) 58.5 %; PLT - PLATELET COUNT 195 10^3/uL (130-450); RED BLOOD COUNT 3.19 10^6/uL (4.70-6.10); RED CELL DISTRIBUTION WIDTH 13.2 % (12.0-15.0); WHITE BLOOD COUNT 8.7 x10^3/uL (4.8-10.8)
[2023-10-13 14:33] LABS: ALBUMIN 3.5 g/dL (3.2-5.5); ALBUMIN/GLOBULIN RATIO 1.4 (1.0-2.2); ALKALINE PHOSPHATASE 57 IU/L (42-121); ALT ALANINE AMINOTRANSFERASE < 3 IU/L (10-60); AST ASPARTATE AMINOTRANSFERASE 3 IU/L (10-42); BILIRUBIN,TOTAL 0.4 mg/dL (0.2-1.0); BUN - BLOOD UREA NITROGEN 26 mg/dL (6-20); CALCIUM 9.1 mg/dL (8.5-10.3); CARBON DIOXIDE - CO2 30 mmol/L (21-32); CHLORIDE 104 mmol/L (101-111); CREATININE 1.4 mg/dL (0.6-1.3); GFR - MDRD 48 (>89); GLUCOSE 145 mg/dL (74-104); POTASSIUM 3.8 mmol/L (3.5-4.5); SODIUM 140 mmol/L (135-145)
[2023-10-13 14:53] LABS: INR 1.3 (0.8-1.2); PT - PROTHROMBIN TIME 13.6 secs (9.9-12.6)
[2023-10-13 15:16] VITALS: BP 134/82; O2SAT 98
== END 2023-10-13 15:10 | disposition home or self-care (01) ==
LOC: ED 12:50
DX: L89.323 Pressure ulcer of left buttock, stage 3 (principal); L89.313 Pressure ulcer of right buttock, stage 3; I10 Essential (primary) hypertension; G20.A1 Parkinson's disease without dyskinesia, without mention of fluctuations; E11.9 Type 2 diabetes mellitus without complications; Z79.4 Long term (current) use of insulin
CPT/HCPCS: 36415; 80053; 85025; 85610; 99283

== ENCOUNTER 2023-10-15 08:00 | Outpatient (CLI) | payer MEDICARE, OTHER | END 2023-10-15 23:59 | disposition home or self-care (01) | LOC: PC 08:00 | PROVIDERS: ATTEND Nurse Practitioner Gerontology | DX: Z51.5 Encounter for palliative care (principal); G20.A1 Parkinson's disease without dyskinesia, without mention of fluctuations; E11.22 Type 2 diabetes mellitus with diabetic chronic kidney disease; I95.1 Orthostatic hypotension; E86.0 Dehydration; L89.309 Pressure ulcer of unspecified buttock, unspecified stage; I48.91 Unspecified atrial fibrillation; N18.4 Chronic kidney disease, stage 4 (severe); Z79.4 Long term (current) use of insulin; Z79.84 Long term (current) use of oral hypoglycemic drugs | CPT/HCPCS: 99350 ==

== ENCOUNTER 2023-10-29 14:13 | Outpatient (CLI) | payer MEDICARE, OTHER ==
[2023-10-29 18:02] LABS: BASOPHILS % (AUTO) 0.2 %; EOSINOPHILS # (AUTO) 0.2 10^3/uL (0.0-0.7); EOSINOPHILS % (AUTO) 2.6 %; HCT - HEMATOCRIT 29.4 % (42.0-52.0); HGB - HEMOGLOBIN 8.7 g/dL (14.0-18.0); LYMPHOCYTES # (AUTO) 2.3 10^3/uL (1.5-3.5); LYMPHOCYTES % (AUTO) 28.4 %; MEAN CORPUSCULAR HEMOGLOBIN 26.1 pg (27.0-31.0); MEAN CORPUSCULAR HGB CONC 29.6 g/dL (32.0-36.0); MEAN CORPUSCULAR VOLUME 88.3 fL (80.0-94.0); MONOCYTES # (AUTO) 0.6 10^3/uL (0.0-1.0); MONOCYTES % (AUTO) 6.8 %; NEUTROPHILS # (AUTO) 4.9 10^3/uL (1.5-6.6); NEUTROPHILS % (AUTO) 60.5 %; PLT - PLATELET COUNT 268 10^3/uL (130-450); RED BLOOD COUNT 3.33 10^6/uL (4.70-6.10); RED CELL DISTRIBUTION WIDTH 13.3 % (12.0-15.0); WHITE BLOOD COUNT 8.1 x10^3/uL (4.8-10.8)
[2023-10-29 18:26] LABS: CHOL/HDL RATIO 2.5 (<5.0); CHOLESTEROL 113 mg/dL; HDL CHOLESTEROL 45 mg/dL; LDL CHOLESTEROL,CALCULATED 54 mg/dL; LDL/HDL RATIO 1.2 (<3.6); TRIGLYCERIDES 71 mg/dL; VLDL CHOLESTEROL 14 mg/dL
[2023-10-29 19:33] LABS: ALBUMIN/GLOBULIN RATIO 1.5 (1.0-2.2); ALKALINE PHOSPHATASE 65 IU/L (42-121); ALT ALANINE AMINOTRANSFERASE < 3 IU/L (10-60); AST ASPARTATE AMINOTRANSFERASE 4 IU/L (10-42); BILIRUBIN,TOTAL 0.3 mg/dL (0.2-1.0); BUN - BLOOD UREA NITROGEN 26 mg/dL (6-20); CALCIUM 9.7 mg/dL (8.5-10.3); CARBON DIOXIDE - CO2 31 mmol/L (21-32); CHLORIDE 104 mmol/L (101-111); CREATININE 1.4 mg/dL (0.6-1.3); GFR - MDRD 48 (>89); GLUCOSE 51 mg/dL (74-104); POTASSIUM 3.8 mmol/L (3.5-4.5); SODIUM 139 mmol/L (135-145); TOTAL PROTEIN 6.6 g/dL (6.4-8.9)
[2023-10-29 22:24] LABS: ESTIMATED AVERAGE GLUCOSE 140 mg/dL (70-100); HEMOGLOBIN A1c% 6.5 % (4.27-6.07)
[2023-10-30 15:45] LABS: FERRITIN 9.6 ng/mL (23.9-336.2)
== END 2023-10-29 14:14 | disposition home or self-care (01) ==
LOC: LAB.N 14:13
PROVIDERS: ATTEND Physician Assistant Medical
DX: E11.29 Type 2 diabetes mellitus with other diabetic kidney complication (principal); K21.9 Gastro-esophageal reflux disease without esophagitis; D64.9 Anemia, unspecified
CPT/HCPCS: 36415; 80053; 80061; 82728; 83036; 83540; 83721; 84466; 85025

== ENCOUNTER 2023-11-03 08:00 | Outpatient (CLI) | payer MEDICARE, OTHER ==
[2023-11-04 20:08] LABS: FECAL OCCULT BLOOD (FIT) NEGATIVE (NEGATIVE)
== END 2023-11-03 23:59 | disposition home or self-care (01) ==
LOC: LAB.N 08:00
PROVIDERS: ATTEND Physician Assistant Medical
DX: D64.9 Anemia, unspecified (principal)
CPT/HCPCS: 82274

== ENCOUNTER 2023-11-21 15:35 | Outpatient (CLI) | payer MEDICARE, OTHER | END 2023-11-21 23:59 | disposition home or self-care (01) | LOC: PC 15:35 | PROVIDERS: ATTEND Nurse Practitioner Gerontology | DX: Z51.5 Encounter for palliative care (principal); G20.B1 Parkinson's disease with dyskinesia, without mention of fluctuations; F02.82 Dementia in other diseases classified elsewhere, unspecified severity, with psychotic disturbance; E11.22 Type 2 diabetes mellitus with diabetic chronic kidney disease; N18.30 Chronic kidney disease, stage 3 unspecified; D64.9 Anemia, unspecified; E11.42 Type 2 diabetes mellitus with diabetic polyneuropathy; Z71.89 Other specified counseling; Z79.4 Long term (current) use of insulin | CPT/HCPCS: 99349 ==

== ENCOUNTER 2023-12-06 12:45 | Outpatient (CLI) | payer MEDICARE, OTHER | END 2023-12-06 12:46 | disposition home or self-care (01) | LOC: LAB.N 12:45 | PROVIDERS: ATTEND Physician Assistant Medical | DX: D64.9 Anemia, unspecified (principal) | CPT/HCPCS: 36415; 82607; 82746 ==